=== PATIENT | female | born 1945 | race Caucasian/White ===

== ENCOUNTER 2018-05-19 02:00 | Outpatient (CLI) | payer MEDICARE, MEDICAID, SELFPAY ==
[2018-05-19 12:28] LABS: HCT 40.5 % (36.0-46.0); HGB 13.5 g/dL (12.0-15.5); Mean Corp. HGB Concentration 33.3 g/dL (32.0-36.0); Mean Corpuscular Hemoglobin 33.1 pg (27.0-33.0); Mean Corpuscular Volume 99.3 fL (80-95); Mean Platelet Volume 11.5 fL (8.0-11.0); Platelet Count 207 x1000/uL (130-400); RBC 4.08 m/cumm (4.00-5.20); RBC Distribution Width 13.3 % (11.7-14.6); White Blood Cell Count 8.09 k/cumm (4.4-10.8)
[2018-05-19 13:12] LABS: ALT 24 U/L (12-78); AST 18 U/L (15-37); Albumin 3.6 g/dL (3.4-5.0); Alkaline Phosphatase 182 U/L (46-116); Anion Gap 10.7 mmol/L (3-11); BUN 23 mg/dL (7-18); Bilirubin, Total 0.2 mg/dL (0.2-1.0); CO2 19.3 mmol/L (21.0-32.0); CREATININE 1.59 mg/dL (0.55-1.02); Calcium 8.8 mg/dL (8.5-10.1); Chloride 109 mmol/L (98-107); Estimated GFR 31.91 (mL/min/1.73m2); Glucose 91 mg/dL (70-100); Magnesium 1.9 mg/dL (1.8-2.4); PHOSPHORUS 4.6 mg/dL (2.6-4.7); Potassium 5.1 mmol/L (3.5-5.1); Sodium 139 mmol/L (136-145); Total Protein 7.3 g/dL (6.4-8.2)
[2018-05-20 09:32] LABS: Parathyroid Hormone,Intact 99 pg/ml (19-88)
== END 2018-05-19 02:20 ==
PROVIDERS: PCP Family Medicine; Visit Provider Family Medicine
DX: N18.4 Chronic kidney disease, stage 4 (severe) (principal); N25.81 Secondary hyperparathyroidism of renal origin
CPT/HCPCS: 36415; 80053; 85027; 83735; 83970; 84100

== ENCOUNTER 2018-07-19 11:24 | Outpatient (REF) | payer MEDICARE, MEDICAID, SELFPAY ==
[2018-07-19 19:06] LABS: COMMENT (LAB VIEW ONLY) 13.06 mg/dL; Microalb ug/mg Crea 198.3 ug/mg Cr
== END 2018-07-19 11:44 ==
LOC: NCHCN 11:24
PROVIDERS: PCP Family Medicine; Visit Provider Family Medicine
DX: E11.9 Type 2 diabetes mellitus without complications (principal)
CPT/HCPCS: 82043; 82570

== ENCOUNTER 2018-07-23 00:45 | Outpatient (CLI) | payer MEDICARE, MEDICAID, SELFPAY ==
--- NOTE | 2018-07-23 13:56 | DI.CT_ITS ---
SYMPTOM/DIAGNOSIS: COUGH, LUNG NODULE, R91.8, CHRONIC KIDNEY DISEASE, FORMER SMOKER, N18.[address]: A noncontrast examination was performed. Comparison is made with exams dating back to 2012. The thoracic aorta is of normal caliber. Heart size is within normal limits. Coronary artery calcifications are present. Stable mediastinal lymph nodes are present. No pleural effusion or pneumothorax is identified. The spiculated soft tissue density in the anterior aspect of the right upper lobe has shown interval increase in size compared to 02/27/17. The area measures 1.7 by 2.1 cm. by 1.5 cm. The nodular density seen in the posterior right lower lobe is less prominent compared to the prior examination. No new pulmonary nodules are identified. Emphysematous changes are seen in the lungs. Dependent atelectatic changes are seen in the bases. No focal consolidating infiltrates are seen. Degenerative changes are seen in the spine. IMPRESSION: 1. Interval increase in size of spiculated soft tissue mass in the right upper lobe. Neoplasm should be considered. PET scan may be considered for further evaluation. 2. Emphysematous changes within the lungs. 3. Right lower lobe pulmonary nodule, less prominent when compared with the prior examination.
== END 2018-07-23 01:05 ==
PROVIDERS: PCP Family Medicine; Visit Provider Family Medicine
DX: R05 Cough (principal); R91.8 Other nonspecific abnormal finding of lung field; N18.9 Chronic kidney disease, unspecified; R59.0 Localized enlarged lymph nodes; J43.9 Emphysema, unspecified
CPT/HCPCS: 71250

== ENCOUNTER 2018-10-13 07:17 | Emergency (ER) | payer MEDICARE, MEDICAID, SELFPAY ==
[2018-10-13 07:22] VITALS: BP 125/57; PULSE 92; RESP 20; TEMP 36.5; O2SAT 98
--- NOTE | 2018-10-13 07:28 | W.ED.GENAD ---
Discharge Plan Disposition Patient Disposition: HOME Condition: Good Discharge Details Chief Complaint: SOB Clinical Impression: Cough Reason For Visit: KINA Primary Care Provider: Ean Dhillon ED Provider: Fantasma Ayon Home Meds and New Rx's Prescriptions: Continued simvastatin 10 MG tablet 10 mg PO DAILY Qty: 1 RF: 0 quinapril 5 MG tablet 5 mg PO DAILY Qty: 1 RF: 0 fluphenazine decanoate 125 MG/5 ML solution 0.8 ml IM DIRECTED RF: 0 aspirin 81 MG tablet,chewable 81 mg PO DAILY RF: 0 cholecalciferol (vitamin D3) 1,000 UNITS tablet 2,000 units PO DAILY RF: 0 Lantus Solostar U-100 Insulin 300 UNITS/3 ML insulin pen 15 units Sub-Q HS RF: 0 quetiapine [Seroquel] 300 MG tablet 300 mg PO .QHS RF: 0 Discharge Instructions Instructions: How to Stop Smoking (ED) Additional Instructions: Continue to try to quit smoking as you are doing. Continue other medications. Follow-up with primary care next week if you continue to not feel well. Return to the emergency department if you develop high fever, increasing shortness of breath, chest pain, other concerns per Referrals: Ean Dhillon [Primary Care Provider] - Medical Decision Making Patient here with complaint of cough and inability to take a deep breath. She is not short of breath just feels like she cannot take a full breath. Her vital signs are normal. She is afebrile. Her pulse ox is normal. Her lungs are mostly clear with only a few scattered rhonchi at the bases. There is no wheezing. There is no diminished breath sounds. She has not had a cough here. It may be all viral in nature. She has not called or followed up with her primary care at all. I do not think she needs laboratory studies or chest x-ray today. We will have her follow-up with primary care next week if continued symptoms. Return to emergency department for worsening shortness of breath, chest pain, high fever, other concerns. HPI General Mode of arrival: EMS. Date/Time Provider Initiated Documentation: 10/13/18 07:28. Limitations to Documentation: no limitations. Information obtained by: patient. HPI Narrative: Patient brought in by EMS for evaluation of cough and shortness of breath. Patient ambulated in on her own. She reports that she has had a cough for about a week now. She has not seen her primary care physician. She cannot take a deep breath like she usually can. She denies having fever. She denies having chest pain. She has no headache, body aches. She continues to smoke. Related Data Home Medications Medication Instructions Recorded Confirmed quinapril 5 mg PO DAILY #1 04/15/14 10/13/18 simvastatin 10 mg PO DAILY #1 tab-cap 04/15/14 10/13/18 aspirin 81 mg PO DAILY 08/10/15 10/13/18 cholecalciferol (vitamin D3) 2,000 units PO DAILY 08/10/15 10/13/18 fluphenazine decanoate 0.8 ml IM DIRECTED 08/10/15 10/13/18 Lantus Solostar U-100 Insulin 15 units SUB-Q HS 05/04/16 10/13/18 quetiapine [Seroquel] 300 mg PO .QHS 05/05/16 10/13/18 Allergies Allergy/AdvReac Type Severity Reaction Status Date / Time Sulfa (Sulfonamide Allergy Unknown Not Unverified 12/20/16 20:59 Antibiotics) recalled Contrast Dye Allergy Unknown feeling of Uncoded 12/20/16 20:59 body burning General Stated Complaint: SOB MACARENA: 3 Review of Systems Constitutional Denies body ache(s), Denies chills, Denies fever(s), Denies headache(s), Denies malaise and Denies weakness ENT Denies headache(s), Denies hoarseness, Denies nasal congestion, Denies neck pain, Denies sinus pressure and Denies sore throat Cardiovascular Denies chest pain, Denies diaphoresis, Denies syncope, Denies lightheadedness, Denies palpitations and Denies dyspnea Respiratory Denies chest congestion, Reports cough, Denies pain on inspiration and Denies dyspnea Gastrointestinal Denies abdominal pain, Denies nausea and Denies vomiting Musculoskeletal Denies neck pain and Denies numbness Neurologic Denies syncope, Denies headache(s), Denies focal weakness, Denies numbness and Denies weakness Endocrine Denies palpitations [facility] Medical History Bipolar disease, chronic Diabetes mellitus Diverticulosis History of colon cancer Hyperlipidemia Lung nodule Proteinuria Renal insufficiency Schizophrenia Tobacco abuse Surgical History Cholecystectomy Colectomy (~2001) Colonoscopy - MAC EGD - MAC Hernia Repair, Incisional Social History Smoking/Tobacco Use Status: Current every day Exam Const General: cooperative, comfortable and no acute distress Orientation: alert and oriented x3 HENMT Head: normocephalic and atraumatic Ears: unable to visualize TM bilaterally (cerumen ) General nose exam: no nasal discharge Neck Neck: trachea midline and supple Resp Effort & Inspection: normal respiratory effort, no audible wheezes, no respiratory distress, no retractions and not tachypneic Auscultation: lung sounds not diminished, no rales, rhonchi (few scattered rhonchi at bases) and no wheezes Cardio Rate: regular rate Rhythm: regular rhythm Heart Sounds: S1 normal and S2 normal GI Palpation: soft and nontender Neuro General: alert, oriented x3, gait normal, no focal motor deficits and CN's II-XI intact bilaterally Course Vital Signs Temperature 97.7 F 10/13/18 07:22 Pulse 92 H 10/13/18 07:22 Respiratory Rate 20 10/13/18 07:22 Blood Pressure 125/57 L 10/13/18 07:22 Pulse Oximetry 98 10/13/18 07:22 Temperature 97.7 F 10/13/18 07:22 Temperature Source Temporal Artery Scan 10/13/18 07:22 Pulse 92 H 10/13/18 07:22 Respiratory Rate 20 10/13/18 07:22 Respiratory Effort Non-Labored 10/13/18 07:27 Blood Pressure 125/57 L 10/13/18 07:22 Blood Pressure Position Supine 10/13/18 07:22 Pulse Oximetry 98 10/13/18 07:22 Oxygen Delivery Method Room Air 10/13/18 07:22 Oxygen Flow Rate 0 10/13/18 07:22 Pain Level 0 10/13/18 07:22
--- NOTE | 2018-10-13 07:36 | ED.GENADUL_ITS ---
Discharge Plan Disposition Patient Disposition: HOME Condition: Good Discharge Details Chief Complaint: SOB Clinical Impression: Cough Reason For Visit: KINA Primary Care Provider: Ean Dhillon ED Provider: Fantasma Ayon Home Meds and New Rx's Prescriptions: Continued simvastatin 10 MG tablet 10 mg PO DAILY Qty: 1 RF: 0 quinapril 5 MG tablet 5 mg PO DAILY Qty: 1 RF: 0 fluphenazine decanoate 125 MG/5 ML solution 0.8 ml IM DIRECTED RF: 0 aspirin 81 MG tablet,chewable 81 mg PO DAILY RF: 0 cholecalciferol (vitamin D3) 1,000 UNITS tablet 2,000 units PO DAILY RF: 0 Lantus Solostar U-100 Insulin 300 UNITS/3 ML insulin pen 15 units Sub-Q HS RF: 0 quetiapine [Seroquel] 300 MG tablet 300 mg PO .QHS RF: 0 Discharge Instructions Instructions: How to Stop Smoking (ED) Additional Instructions: Continue to try to quit smoking as you are doing. Continue other medications. Follow-up with primary care next week if you continue to not feel well. Return to the emergency department if you develop high fever, increasing shortness of breath, chest pain, other concerns per Referrals: Ean Dhillon [Primary Care Provider] - Medical Decision Making Patient here with complaint of cough and inability to take a deep breath. She is not short of breath just feels like she cannot take a full breath. Her vital signs are normal. She is afebrile. Her pulse ox is normal. Her lungs are mostly clear with only a few scattered rhonchi at the bases. There is no wheezing. There is no diminished breath sounds. She has not had a cough here. It may be all viral in nature. She has not called or followed up with her primary care at all. I do not think she needs laboratory studies or chest x-ray today. We will have her follow-up with primary care next week if continued symptoms. Return to emergency department for worsening shortness of breath, chest pain, high fever, other concerns. HPI General Mode of arrival: EMS . Date/Time Provider Initiated Documentation: 10/13/18 07:28 . Limitations to Documentation: no limitations . Information obtained by: patient . HPI Narrative: Patient brought in by EMS for evaluation of cough and shortness of breath. Patient ambulated in on her own. She reports that she has had a cough for about a week now. She has not seen her primary care physician. She cannot take a deep breath like she usually can. She denies having fever. She denies having chest pain. She has no headache, body aches. She continues to smoke. Related Data Home Medications Medication Instructions Recorded Confirmed quinapril 5 mg PO DAILY #1 04/15/14 10/13/18 simvastatin 10 mg PO DAILY #1 tab-cap 04/15/14 10/13/18 aspirin 81 mg PO DAILY 08/10/15 10/13/18 cholecalciferol (vitamin D3) 2,000 units PO DAILY 08/10/15 10/13/18 fluphenazine decanoate 0.8 ml IM DIRECTED 08/10/15 10/13/18 Lantus Solostar U-100 Insulin 15 units SUB-Q HS 05/04/16 10/13/18 quetiapine [Seroquel] 300 mg PO .QHS 05/05/16 10/13/18 Allergies Allergy/AdvReac Type Severity Reaction Status Date / Time Sulfa (Sulfonamide Allergy Unknown Not Unverified 12/20/16 20:59 Antibiotics) recalled Contrast Dye Allergy Unknown feeling of Uncoded 12/20/16 20:59 body burning General Stated Complaint: SOB MACARENA: 3 Review of Systems Constitutional Denies body ache(s), Denies chills, Denies fever(s), Denies headache(s), Denies malaise and Denies weakness ENT Denies headache(s), Denies hoarseness, Denies nasal congestion, Denies neck pain, Denies sinus pressure and Denies sore throat Cardiovascular Denies chest pain, Denies diaphoresis, Denies syncope, Denies lightheadedness, Denies palpitations and Denies dyspnea Respiratory Denies chest congestion, Reports cough, Denies pain on inspiration and Denies dyspnea Gastrointestinal Denies abdominal pain, Denies nausea and Denies vomiting Musculoskeletal Denies neck pain and Denies numbness Neurologic Denies syncope, Denies headache(s), Denies focal weakness, Denies numbness and Denies weakness Endocrine Denies palpitations [facility] Medical History Bipolar disease, chronic Diabetes mellitus Diverticulosis History of colon cancer Hyperlipidemia Lung nodule Proteinuria Renal insufficiency Schizophrenia Tobacco abuse Surgical History Cholecystectomy Colectomy (~2001) Colonoscopy - MAC EGD - MAC Hernia Repair, Incisional Social History Smoking/Tobacco Use Status: Current every day Exam Const General: cooperative, comfortable and no acute distress Orientation: alert and oriented x3 HENMT Head: normocephalic and atraumatic Ears: unable to visualize TM bilaterally (cerumen ) General nose exam: no nasal discharge Neck Neck: trachea midline and supple Resp Effort & Inspection: normal respiratory effort, no audible wheezes, no respiratory distress, no retractions and not tachypneic Auscultation: lung sounds not diminished, no rales, rhonchi (few scattered rhonchi at bases) and no wheezes Cardio Rate: regular rate Rhythm: regular rhythm Heart Sounds: S1 normal and S2 normal GI Palpation: soft and nontender Neuro General: alert, oriented x3, gait normal, no focal motor deficits and CN's II-XI intact bilaterally Course Vital Signs Temperature 97.7 F 10/13/18 07:22 Pulse 92 H 10/13/18 07:22 Respiratory Rate 20 10/13/18 07:22 Blood Pressure 125/57 L 10/13/18 07:22 Pulse Oximetry 98 10/13/18 07:22 Temperature 97.7 F 10/13/18 07:22 Temperature Source Temporal Artery Scan 10/13/18 07:22 Pulse 92 H 10/13/18 07:22 Respiratory Rate 20 10/13/18 07:22 Respiratory Effort Non-Labored 10/13/18 07:27 Blood Pressure 125/57 L 10/13/18 07:22 Blood Pressure Position Supine 10/13/18 07:22 Pulse Oximetry 98 10/13/18 07:22 Oxygen Delivery Method Room Air 10/13/18 07:22 Oxygen Flow Rate 0 10/13/18 07:22 Pain Level 0 10/13/18 07:22
--- NOTE | 2018-10-13 07:43 | NUR.NOTE ---
Nursing Note: Bedside BGL test 207, patient states she does her own insulin shots
--- NOTE | 2018-10-13 07:59 | PDOC.ERCMPRO ---
Care Management Progress Note 10/13-Edilma COLLIER requested assistance with transportation home for Delmi. Delmi has [place] Medicaid and normally uses [facility] for transport. Called [facility] and spoke with Rosalba. Rosalba scheduled transport for 9:30 via a taxi. Edilma COLLIER aware of the above. Called in to speak with Delmi as she wanted to go home know. Explained to Delmi that the taxi's were busy and this was the best that [facility] can do. Offered Delmi Coffee and breakfast for which she is now eating. Patient will wait for transportation in ED waiting room.
--- NOTE | 2018-10-13 08:34 | CMPROGNOTE_ITS ---
Care Management Progress Note 10/13-Edilma COLLIER requested assistance with transportation home for Delmi. Delmi has [place] Medicaid and normally uses [facility] for transport. Called [facility] and spoke with Rosalba. Rosalba scheduled transport for 9:30 via a taxi. Edilma COLLIER aware of the above. Called in to speak with Delmi as she wanted to go home know. Explained to Nasra parker that the taxi's were busy and this was the best that [facility] can do. Offered Delmi Coffee and breakfast for which she is now eating. Patient will wait for transportation in ED waiting room.
== END 2018-10-13 07:58 | disposition home or self-care (01) ==
PROVIDERS: Emergency Provider Emergency Medicine; PCP Family Medicine
DX: R05 Cough (principal); F17.210 Nicotine dependence, cigarettes, uncomplicated
CPT/HCPCS: 99282

== ENCOUNTER 2018-10-21 15:51 | Outpatient (CLI) | payer MEDICARE, MEDICAID, SELFPAY ==
[2018-10-21 16:26] LABS: Abs Immature Grans 0.01 k/cumm (0.0-0.09); Absolute Basophil Count 0.03 k/cumm (0.0-0.2); Absolute Eosinophil Count 0.12 k/cumm (0.0-0.7); Absolute Monocyte Count 0.54 k/cumm (0.11-0.7); Absolute Neutrophil Count 5.32 k/cumm (1.2-6.7); Basophils % 0.4; Eosinophils % 1.5; HCT 37.5 % (36.0-46.0); HGB 12.3 g/dL (12.0-15.5); Immature Grans % 0.1; Lymphocytes % 24.9; Mean Corp. HGB Concentration 32.8 g/dL (32.0-36.0); Mean Corpuscular Hemoglobin 32.7 pg (27.0-33.0); Mean Corpuscular Volume 99.7 fL (80-95); Monocytes % 6.7; Neutrophils % 66.4; Platelet Count 238 x1000/uL (130-400); RBC 3.76 m/cumm (4.00-5.20); RBC Distribution Width 13.2 % (11.7-14.6); White Blood Cell Count 8.02 k/cumm (4.4-10.8)
[2018-10-21 17:19] LABS: ALT 36 U/L (12-78); AST 28 U/L (15-37); Albumin 3.1 g/dL (3.4-5.0); Alkaline Phosphatase 173 U/L (46-116); Anion Gap 7.9 mmol/L (3-11); BUN 39 mg/dL (7-18); Bilirubin, Total 0.1 mg/dL (0.2-1.0); CO2 24.1 mmol/L (21.0-32.0); CREATININE 2.14 mg/dL (0.55-1.02); Calcium 8.4 mg/dL (8.5-10.1); Chloride 104 mmol/L (98-107); Estimated GFR 22.59 (mL/min/1.73m2); Glucose 220 mg/dL (70-100); Potassium 5.8 mmol/L (3.5-5.1); Sodium 136 mmol/L (136-145); Total Protein 6.9 g/dL (6.4-8.2)
== END 2018-10-21 16:11 ==
PROVIDERS: PCP Family Medicine; Visit Provider Thoracic Surgery (Cardiothoracic Vascular Surgery)
DX: R91.1 Solitary pulmonary nodule (principal); R94.31 Abnormal electrocardiogram [ECG] [EKG]
CPT/HCPCS: 36415; 80053; 85025; 93005; 93010

== ENCOUNTER 2018-10-28 13:08 | Outpatient (CLI) | payer MEDICARE, MEDICAID, SELFPAY ==
[2018-10-28 14:16] LABS: Anion Gap 14.5 mmol/L (3-11); BUN 40 mg/dL (7-18); CO2 20.5 mmol/L (21.0-32.0); Calcium 8.8 mg/dL (8.5-10.1); Chloride 101 mmol/L (98-107); Estimated GFR 25.91 (mL/min/1.73m2); Glucose 212 mg/dL (70-100); Potassium 5.3 mmol/L (3.5-5.1); Sodium 136 mmol/L (136-145)
== END 2018-10-28 13:28 ==
PROVIDERS: PCP Family Medicine; Visit Provider Thoracic Surgery (Cardiothoracic Vascular Surgery)
DX: R91.1 Solitary pulmonary nodule (principal); N18.9 Chronic kidney disease, unspecified
CPT/HCPCS: 36415; 80048

== ENCOUNTER 2019-01-25 10:32 | Outpatient (CLI) | payer MEDICARE, MEDICAID, SELFPAY ==
[2019-04-27 15:49] LABS: ALT 23 U/L (12-78); AST 13 U/L (15-37); Albumin 3.2 g/dL (3.4-5.0); Alkaline Phosphatase 156 U/L (46-116); Anion Gap 11.7 mmol/L (3-11); BUN 28 mg/dL (7-18); Bilirubin, Total 0.2 mg/dL (0.2-1.0); CO2 22.3 mmol/L (21.0-32.0); CREATININE 1.83 mg/dL (0.55-1.02); Calcium 8.5 mg/dL (8.5-10.1); Calculated LDL 49 mg/dL; Chloride 107 mmol/L (98-107); Cholesterol 122 mg/dL (50-200); Estimated GFR 27.06 (mL/min/1.73m2); Glucose 229 mg/dL (70-100); HDL Cholesterol 48 mg/dL (40-60); Magnesium 1.8 mg/dL (1.8-2.4); Potassium 4.9 mmol/L (3.5-5.1); Sodium 141 mmol/L (136-145); Total Protein 6.6 g/dL (6.4-8.2); Triglyceride 129 mg/dL (30-150)
[2019-04-27 15:58] LABS: PHOSPHORUS 4.9 mg/dL (2.6-4.7)
[2019-04-28 09:53] LABS: Hepatitis C Ab w Rflx HCV PCR Negative (NEGAT)
[2019-04-28 11:53] LABS: Parathyroid Hormone,Intact 195 pg/ml (19-88)
== END 2019-01-25 10:52 ==
PROVIDERS: PCP Family Medicine; Visit Provider Family Medicine
DX: N18.4 Chronic kidney disease, stage 4 (severe) (principal); Z11.59 Encounter for screening for other viral diseases; F25.9 Schizoaffective disorder, unspecified
CPT/HCPCS: 36415; 80053; 80061; 83721; 86803; 83735; 83970; 84100

== ENCOUNTER 2019-04-08 16:49 | Outpatient (REF) | payer MEDICARE, MEDICAID, SELFPAY ==
[2019-04-08 20:44] LABS: ALT 23 U/L (12-78); AST 16 U/L (15-37); Albumin 3.2 g/dL (3.4-5.0); Alkaline Phosphatase 145 U/L (46-116); Anion Gap 8.2 mmol/L (3-11); BUN 39 mg/dL (7-18); Bilirubin, Total 0.2 mg/dL (0.2-1.0); CO2 24.8 mmol/L (21.0-32.0); Calcium 8.5 mg/dL (8.5-10.1); Calculated LDL 69 mg/dL; Chloride 108 mmol/L (98-107); Cholesterol 137 mg/dL (50-200); Estimated GFR 27.58 (mL/min/1.73m2); Glucose 151 mg/dL (70-100); HDL Cholesterol 42 mg/dL (40-60); Sodium 141 mmol/L (136-145); Total Protein 6.5 g/dL (6.4-8.2); Triglyceride 130 mg/dL (30-150)
[2019-04-08 20:49] LABS: Potassium 5.8 mmol/L (3.5-5.1)
[2019-04-08 20:59] LABS: PHOSPHORUS 4.5 mg/dL (2.6-4.7)
[2019-04-11 10:55] LABS: Hepatitis C Ab w Rflx HCV PCR Negative (NEGAT)
== END 2019-04-08 17:09 ==
LOC: NCHCN 16:49
PROVIDERS: PCP Family Medicine; Visit Provider Family Medicine
DX: N18.4 Chronic kidney disease, stage 4 (severe) (principal); Z11.59 Encounter for screening for other viral diseases; F25.9 Schizoaffective disorder, unspecified; Z13.6 Encounter for screening for cardiovascular disorders
CPT/HCPCS: 80053; 80061; 83721; 86803; 83735; 84100

== ENCOUNTER 2019-05-05 00:56 | Outpatient (CLI) | payer MEDICARE, MEDICAID, SELFPAY ==
--- NOTE | 2019-05-05 14:27 | DI.COMBO_ITS ---
SYMPTOMS/DIAGNOSIS: F/U ABNORMAL MAMMO, LEFT BREAST, R92.8 MAMMOGRAM AND LEFT BREAST ULTRASOUND: Mammograms were interpreted according to the usual protocol including computer analysis with CAD system, tomosynthesis and C view imaging. Comparison is with prior examinations. No suspicious masses or microcalcifications are seen. The skin and axillae are unremarkable. Left breast ultrasound was performed. The hypoechoic masses seen at the 9 o'clock position of the left breast appear stable, the largest measures 0.7 x 0.4 x 0.7 cm, the smaller measures 0.6 x 0.4 x 0.7 cm. The nodules are 5 cm from the nipple at the 9 o'clock position of the left breast. IMPRESSION: No evidence for malignancy. Yearly mammography is recommended. Category 2, breast density C. The findings were discussed with the patient on the date of the examination. SA ASSESSMENT OF FINDINGS: Negative with benign findings. Category 2. Patient will receive a letter notifying them of these results. Bi-RADS category C. The breasts are heterogeneously dense, which may obscure small masses.
== END 2019-05-05 01:16 ==
PROVIDERS: PCP Family Medicine; Visit Provider Family Medicine
DX: Z12.31 Encounter for screening mammogram for malignant neoplasm of breast (principal); R92.8 Other abnormal and inconclusive findings on diagnostic imaging of breast; N63.22 Unspecified lump in the left breast, upper inner quadrant
CPT/HCPCS: 76642; 77062; 77066; G0279

== ENCOUNTER 2019-05-05 01:46 | Outpatient (CLI) | payer MEDICARE, MEDICAID, SELFPAY ==
--- NOTE | 2019-05-05 09:00 | DI.CT_ITS ---
SYMPTOM/DIAGNOSIS: LUNG CANCER C34.11 CT CHEST: CT scan of the chest was performed without intravenous contrast material. Comparison is 07/23/18 There are multiple hypodense nodules seen within the thyroid gland including two calcified nodules seen in the left lobe. Several of these nodules appear to have been present on the prior examination. If there is continued concern a non-emergent thyroid ultrasound may be obtained. Next, there is mild atherosclerosis of the thoracic aorta. No aneurysmal dilatation is seen. Heart size is within normal limits. No significant pericardial effusion is present. No pleural effusion or pneumothorax is identified There are stable lymph nodes seen in the mediastinum. Emphysematous changes are present in the lungs. The right upper lobe pulmonary mass is again noted and measures 2.3 transverse x 1.4 AP x 1.4 cranial caudad. There does appear to be adjacent atelectatic change in the right upper lobe medially. There is a calcified granuloma seen in the left lower lobe. No new pulmonary nodules are present. The tracheobronchial tree is unremarkable. Dependent atelectatic changes are present in the lungs. There is mild ground glass opacities particularly in the lung bases. These are nonspecific. Atelectasis, interstitial pneumonitis should be considered among other etiologies. Tracheobronchial tree is unremarkable. Degenerative changes are seen in the spine. Upper abdominal images again show multiple cysts within the kidneys. The patient is status post cholecystectomy. IMPRESSION: Stable appearance in size of the right upper lobe pulmonary nodule. Adjacent infiltrate is seen which may represent atelectasis in the medial aspect of the right upper lobe. 2. No new pulmonary nodules are seen. 3. Stable mediastinal lymph nodes. 4. Nonspecific ground glass opacities seen within the lungs.
== END 2019-05-05 02:06 ==
PROVIDERS: PCP Family Medicine; Visit Provider Radiology Radiation Oncology
DX: C34.11 Malignant neoplasm of upper lobe, right bronchus or lung (principal); R91.8 Other nonspecific abnormal finding of lung field; R59.0 Localized enlarged lymph nodes; Z12.31 Encounter for screening mammogram for malignant neoplasm of breast; R92.8 Other abnormal and inconclusive findings on diagnostic imaging of breast; N63.22 Unspecified lump in the left breast, upper inner quadrant
CPT/HCPCS: 71250; 76642; 77062; 77066; G0279

== ENCOUNTER 2019-08-15 15:13 | Outpatient (REF) | payer MEDICARE, MEDICAID, SELFPAY ==
[2019-08-15 19:47] LABS: HCT 40.5 % (36.0-46.0); HGB 13.2 g/dL (12.0-15.5); Mean Corp. HGB Concentration 32.6 g/dL (32.0-36.0); Mean Corpuscular Hemoglobin 32.8 pg (27.0-33.0); Mean Corpuscular Volume 100.7 fL (80-95); Mean Platelet Volume 11.2 fL (8.0-11.0); Platelet Count 302 x1000/uL (130-400); RBC 4.02 m/cumm (4.00-5.20); RBC Distribution Width 12.6 % (11.7-14.6); White Blood Cell Count 9.01 k/cumm (4.4-10.8)
[2019-08-15 19:52] LABS: Albumin 3.4 g/dL (3.4-5.0); Anion Gap 9.5 mmol/L (3-11); BUN 36 mg/dL (7-18); CO2 27.5 mmol/L (21.0-32.0); CREATININE 1.91 mg/dL (0.55-1.02); Chloride 103 mmol/L (98-107); Estimated GFR 25.68 (mL/min/1.73m2); Glucose 173 mg/dL (74-106); Potassium 4.5 mmol/L (3.5-5.1); Sodium 140 mmol/L (136-145)
== END 2019-08-15 15:33 ==
LOC: NCHCN 15:13
PROVIDERS: PCP Family Medicine; Visit Provider Family Medicine
DX: N18.4 Chronic kidney disease, stage 4 (severe) (principal)
CPT/HCPCS: 80048; 85027; 82040; 84100

== ENCOUNTER 2019-08-29 00:50 | Outpatient (CLI) | payer MEDICARE, MEDICAID, SELFPAY ==
--- NOTE | 2019-08-29 13:04 | DI.CT_ITS ---
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 COMPARISON: CT CHEST WO from 05/05/2019 FINDINGS: There is no significant change in size of the right upper lobe mass versus slight decrease in size. A djacent bronchiectasis and upper lobe emphysematous changes are again noted. There are no new masses, infiltrates, pleural or pericardial effusions. There has been interval decrease in size of previousl y noted upper mediastinal lymph node from 11 millimeters to 8 millimeters. There are a few other smal ler nodes measuring around 5 millimeters in size. A few small thyroid nodules are unchanged. IMPRESSION: Question of slight interval decrease in size of right upper lobe mass. Decreased size of superior med iastinal lymph node. No new abnormalities are seen.
== END 2019-08-29 01:10 ==
PROVIDERS: PCP Family Medicine; Visit Provider Nurse Practitioner
DX: C34.11 Malignant neoplasm of upper lobe, right bronchus or lung (principal); R59.0 Localized enlarged lymph nodes; N18.9 Chronic kidney disease, unspecified; J47.9 Bronchiectasis, uncomplicated; E07.89 Other specified disorders of thyroid
CPT/HCPCS: 71250

== ENCOUNTER 2019-10-31 08:40 | Emergency (ER) | payer MEDICARE, MEDICAID, SELFPAY ==
[2019-10-31] VITALS (42 sets, daily range): BP systolic 102–156; BP diastolic 56–72; PULSE 81–113; RESP 13–30; TEMP 36.5–37.3; O2SAT 96–99
--- NOTE | 2019-10-31 08:45 | DI.RAD_ITS ---
EXAM: XR CHEST 2V PA LATERAL INDICATION: slurred speech. COMPARISON: PORTABLE CHEST ONE VIEW from 12/20/2016 TECHNIQUE: 2D digital imaging was performed. FINDINGS: The heart size and pulmonary vasculature are within normal limits. There is a new infiltrate in the right upper lobe anteriorly. The lungs are otherwise clear. No pleural effusion or pneumothorax is identified. The bones appear intact. IMPRESSION: Right upper lobe infiltrate. This may represent atelectasis, pneumonia or scarring. Please correlat e clinically.
--- NOTE | 2019-10-31 08:45 | DI.CT_ITS ---
EXAM: CT HEAD - STROKE PROTOCOL CLINICAL HISTORY: SLURRED SPEECH,? STROKE TECHNIQUE: The exam was performed without contrast. COMPARISON: No exams were available for comparison FINDINGS: The ventricles and sulci are consistent with the patient's age. There are areas of decreased attenua tion in the white matter most consistent with small vessel ischemic disease. No acute intracranial h emorrhage, midline shift or mass effect is identified. The basilar cisterns are patent. The ventric les are intact. The calvarium is intact. The visualized paranasal sinuses are clear. IMPRESSION: No acute intracranial process. The findings were discussed with the emergency department on the date of the examination.
--- NOTE | 2019-10-31 08:50 | ED.GENADUL_ITS ---
Discharge Plan Disposition Patient Disposition: HOME Condition: Good Discharge Details Chief Complaint: CVA/TIA Clinical Impression: Malaise Primary Care Provider: Ean Dhillon ED Provider: Therese Mahmood Home Meds and New Rx's Prescriptions: Continued simvastatin 10 MG tablet 10 mg PO DAILY Qty: 1 RF: 0 fluphenazine decanoate 125 MG/5 ML solution 0.8 ml IM DIRECTED RF: 0 aspirin 81 MG tablet,chewable 81 mg PO DAILY RF: 0 cholecalciferol (vitamin D3) 1,000 UNITS tablet 1,000 units PO DAILY RF: 0 Lantus Solostar U-100 Insulin 300 UNITS/3 ML insulin pen 15 units Sub-Q HS RF: 0 quetiapine [Seroquel] 300 MG tablet 300 mg PO .QHS RF: 0 Nicotrol 10 mg Cartridge 1 inh INHALATION 4-6XD PRNRF: 0 gabapentin 100 mg Capsule 100 mg PO TID PRNRF: 0 polyethylene glycol 3350 [Miralax] 17 gram/dose Powder 17 g PO DAILY RF: 0 Discharge Instructions Instructions: Weakness (ED) Additional Instructions: Your exam is reassuring today. No acute abnormalities are noted on your CT MRI laboratory evaluation. Continue to encourage water intake. Please follow-up with your primary care this week for reevaluation. If you develop chest pain, difficulty breathing, fever/chills or other new/worsening symptoms please seek care urgently once again. Referrals: Ean Dhillon [Primary Care Provider] - Discharge Data Discharge Date/Time-TO BE ENTERED AT DEPARTURE: 10/31/19 13:39 Medical Decision Making Patient is a 74-year-old female with history of malaise, ptosis, soft tissue neoplasm, active smoker, CKD, bipolar, diabetes hyperlipidemia, schizophrenia. She is brought in via EMS after she awoke this morning concerned that she may have had a stroke. I am unclear as to why exactly this patient thought she had a stroke. She is a fairly poor historian. EMS brings her in stating that her speech is slurred. However, they report that they have taken care of this patient multiple times historically that her speech is fairly baseline for her. States that at baseline, patient has slurred speech and shuffled gait but this is been consistent over the past several years. Patient reports she is feeling unwell when she woke this morning with no true focal complaints. Her BGL prior to arrival was 126. She denies any headache. No fevers. Has not been notably confused. Denies any neck pain. No trauma. Denies any chest pain shortness of breath. He has not noted any focal weakness but does have generalized weakness as reported by the patient. On exam, patient appears chronically ill. She is thin and appears slightly malnourished. She seems to be selectively hard of hearing. Is selectively falling asleep during exam. Intermittently participates with exam. She does not want to participate in exam, she is moving all of her extremities. No facial droop is noted. She does have slurred speech. Reported this is baseline for the patient. Her cognition is appropriate. Reflexes are intact bilaterally. My differential is patient's quite broad as I am not completely clear as to what her chief complaint is. The only persistent complaint seems to be that of fatigue. Again, the patient reports that she awoke with the symptoms. EKG was reviewed by Dr. Guevara. She advised that there are changes to the T wave versions which are new compared to previous she denies that these findings are not particular suggestive of ischemia. She advised repeat troponin as well as repeat EKG. Patient is otherwise normal sinus rhythm with a rate of 89. Recommended by the radiologist regarding the patient's CT and they advised it is negative. Labs were reviewed, no leukocytosis. Patient is not anemic, she appears dehydrated BUN of 31. This is baseline for the patient and she is receiving fluids. Creatinine is 1.8 which is also baseline. Patient. Alk phos is elevated 142 which is normal for the patient. No findings to suggest urinary tract infection. She is positive for tricyclics which would be expected given her medication list. Nursing staff has cared for this patient multiple times they feel that her speech is at baseline. Patient continues to feel weak weird. She is not able to define this further for me. I do not see any objective evidence of an acute stroke. She is moving all of her extremities. We did have her ambulate by department and patient has a very shuffled gait. However, this sounds to be the baseline for the patient per EMS and nursing staff. Difficult caring for this patient right now as I do not know her typical baseline is to feel further evaluation given her reported subjective concern for having a stroke as well as her feeling of fatigue and slurred speech. MRI is available obtained at this time. I was contacted by the radiologist who advised MRI is negative. I discussed these findings with the patient. She is now discussing with her son was admitted last night and she is wondering about him if she can see him. Now wondering if this was the patient's primary concern. This certainly could have increased her anxiety but she has at baseline. They do reside together. I did contact the medical surgical unit at her request but the son has already left AMA. I advised the patient is unable to see him at this time. However, I feel that discharge is appropriate that she will discuss this further with her son at home. She is angry regarding the pain see her son and is yelling at staff. She is very disagreeable. She seems to have much improved strength and appears less fatigued given her level of anger. Patient will be discharged at this time. She has local primary care and advised that she follow-up closely. All of her questions and concerns were addressed and she was in agreement with this plan. HPI General Mode of arrival: EMS . Date/Time Provider Initiated Documentation: 10/31/19 08:50 . Limitations to Documentation: no limitations . Information obtained by: patient, EMS and RN notes reviewed . History of Present Illness 74 year old F presents to the emergency department with the chief complaint of Patient reported feeling like she had a stroke upon awakening, described as mild, with intensity rated at 1 (Patient denies any pain). Patient started experiencing this hour(s) (1) and it has been constant. No relieving factors improve symptom(s), No exacerbating factors reported . Patient notes weakness (Generalized); denies confusion, chest pain, cough, diaphoresis, fever/chills, headaches, loss of appetite, malaise, nausea/vomiting, rash, seizure, shortness of breath and syncope. Patient did receive the following treatments prior to arrival, none Related Data Home Medications Medication Instructions Recorded Confirmed simvastatin 10 mg PO DAILY #1 tab-cap 04/15/14 10/31/19 aspirin 81 mg PO DAILY 08/10/15 10/31/19 cholecalciferol (vitamin D3) 1,000 units PO DAILY 08/10/15 10/31/19 fluphenazine decanoate 0.8 ml IM DIRECTED 08/10/15 10/31/19 Lantus Solostar U-100 Insulin 15 units SUB-Q HS 05/04/16 10/31/19 quetiapine [Seroquel] 300 mg PO .QHS 05/05/16 10/31/19 Nicotrol 1 inh INHALATION 4-6XD PRN 10/31/19 10/31/19 gabapentin 100 mg PO TID PRN 10/31/19 10/31/19 polyethylene glycol 3350 [Miralax] 17 g PO DAILY 10/31/19 10/31/19 Allergies Allergy/AdvReac Type Severity Reaction Status Date / Time Sulfa (Sulfonamide Allergy Unknown Not Unverified 10/31/19 08:50 Antibiotics) recalled Contrast Dye Allergy Unknown feeling of Uncoded 10/31/19 08:50 body burning General Stated Complaint: CVA/TIA MACARENA: 2 Review of Systems Narrative: Patient is a poor historian, very vague. Will answer yes/no Constitutional Constitutional: Reports as per HPI, Denies chills, Reports fatigue, Denies fever(s), Denies frequent falls, Denies headache(s), Denies snoring and Reports weakness (generalized) Eyes Eyes: Reports as per HPI, Denies blurry vision, Denies change in vision and Reports photophobia ENT Ears, Nose, Mouth, and Throat: Denies vertigo, Denies headache(s) and Denies neck pain Cardiovascular Cardiovascular: Reports as per HPI, Denies chest pain, Denies lightheadedness, Denies radiating jaw, neck or arm pain, Denies dyspnea and Denies dyspnea on exertion Respiratory Respiratory: Reports as per HPI, Denies chest congestion, Denies cough, Denies dyspnea, Denies dyspnea on exertion, Denies snoring, Denies stridor and Denies wheezing Gastrointestinal Gastrointestinal: Reports as per HPI, Denies abdominal pain, Denies change in bowel habits, Denies nausea and Denies vomiting Musculoskeletal Musculoskeletal: Reports as per HPI, Denies back pain, Denies myalgias, Denies muscle cramps, Denies neck pain and Denies numbness Integumentary/Breasts Skin/Breast: Reports as per HPI and Denies rash Neurologic Neurologic: Reports as per HPI, Denies abnormal movements, Reports abnormal speech (has chronic slurred speech), Denies behavioral changes, Denies confusion, Denies vertigo, Denies frequent falls, Denies headache(s), Denies focal weakness, Denies numbness, Denies sensory deficit and Reports weakness (generalized) Psychiatric Psychiatric: Denies behavioral changes and Denies confusion Endocrine Endocrine: Reports fatigue Allergic/Immunologic Allergic/Immunologic: Denies wheezing [facility] Medical History Bipolar disease, chronic Diabetes mellitus Diverticulosis History of colon cancer Hyperlipidemia Lung nodule Proteinuria Renal insufficiency Schizophrenia Tobacco abuse Social History Smoking/Tobacco Use Status: Current every day Tobacco Type: cigarettes Alcohol Intake: former Drug use: Never Do you feel safe in your relationship?: Yes Exam Const General: cooperative, healthy appearing, uncomfortable, no acute distress, well developed and well groomed Nutritional Appearance: average body habitus and well nourished Orientation: alert, awake and oriented x3 HENMT Head: normal to inspection, no palpable skull fracture, normocephalic and atraumatic Ears: hearing grossly normal bilaterally, external ears normal and TM's normal bilaterally General nose exam: external nose normal Mouth: oral mucosae normal and moist mucous membranes Throat: posterior oropharynx normal Eyes General: appearance normal, both eyes and all related structures Alignment and Position: alignment normal Periorbital: periorbital findings normal Eyelids: eyelids normal Sclera: sclerae normal Cornea: corneas normal Pupils: PERRL EOM: EOM intact bilaterally Neck Neck: normal visual inspection, full ROM, no lymphadenopathy and no meningeal signs Resp Effort & Inspection: normal respiratory effort, able to speak in complete sentences and no respiratory distress Auscultation: clear to auscultation bilaterally, no rales, no rhonchi and no wheezes Cardio Rate: regular rate Rhythm: regular rhythm Heart Sounds: S1 normal and S2 normal GI Inspection: normal to inspection and non-distended Palpation: soft, no hepatosplenomegaly, not firm, no guarding, not rigid and nontender Percussion: normal to percussion Auscultation: normal bowel sounds Back/Spine/Pelvis Cervical Spine: normal cervical lordosis and cervical ROM normal Skin General skin exam: no rashes or lesions noted Neuro General: alert, awake and oriented x3 Cranial Nerves: CN's II-XI intact bilaterally Cognition: normal cognition Speech: speech normal Gait: normal gait Motor: muscle tone normal throughout, strength 5/5 throughout, no pronator drift, no movement abnormalities noted and no fasciculations Sensory Exam: no sensory deficits noted Coordination: [id number] test normal and [id number] test normal Extrem General: normal to inspection, normal capillary refill, no pedal edema and no calf tenderness Psych Appearance: grossly normal and well kempt Mental Status: mental status grossly normal Speech and Movement: speech and movement normal Course Vital Signs Vital signs: Vital Signs Temperature 37.3 C 10/31/19 08:43 Pulse 97 H 10/31/19 08:43 Respiratory Rate 20 10/31/19 08:43 Blood Pressure 107/64 10/31/19 08:43 Pulse Oximetry 96 10/31/19 08:43 Temperature 37.3 C 10/31/19 08:43 Temperature Source Oral 10/31/19 08:43 Pulse 97 H 10/31/19 08:43 Respiratory Rate 20 10/31/19 08:43 Blood Pressure 107/64 10/31/19 08:43 Blood Pressure Position Sitting 10/31/19 08:43 Pulse Oximetry 96 10/31/19 08:43 Oxygen Delivery Method Room Air 10/31/19 08:43 Oxygen Flow Rate 0 10/31/19 08:43 Pain Level 0 10/31/19 08:43
[2019-10-31 09:06] LABS: Abs Immature Grans 0.01 k/cumm (0.0-0.09); Absolute Basophil Count 0.02 k/cumm (0.0-0.2); Absolute Eosinophil Count 0.15 k/cumm (0.0-0.7); Absolute Lymphocyte Count 1.14 k/cumm (1.2-3.4); Absolute Monocyte Count 0.68 k/cumm (0.11-0.7); Absolute Neutrophil Count 4.22 k/cumm (1.2-6.7); Basophils % 0.3; Eosinophils % 2.4; HCT 38.7 % (36.0-46.0); HGB 12.8 g/dL (12.0-15.5); Immature Grans % 0.2 %; Lymphocytes % 18.3; Mean Corp. HGB Concentration 33.1 g/dL (32.0-36.0); Mean Corpuscular Volume 96.8 fL (80-95); Mean Platelet Volume 10.4 fL (8.0-11.0); Monocytes % 10.9; Neutrophils % 67.9; Platelet Count 237 x1000/uL (130-400); RBC Distribution Width 13.2 % (11.7-14.6); White Blood Cell Count 6.22 k/cumm (4.4-10.8)
[2019-10-31 09:47] LABS: Bilirubin Negative (Negative); Blood Negative (Negative); Clarity Clear (Clear); Glucose Negative (Negative); Ketones Negative (Negative); Leukocyte Esterase Negative (Negative); Nitrite Negative (Negative); Specific Gravity <= 1.005 (1.005-1.025); Urobilinogen 0.2 EU/dL (Up TO 0.2)
[2019-10-31 09:50] LABS: ALT 17 U/L (14-59); AST 16 U/L (15-37); Alkaline Phosphatase 142 U/L (46-116); BUN 31 mg/dL (7-18); Bilirubin, Total 0.3 mg/dL (0.2-1.0); Chloride 110 mmol/L (98-107); Glucose 116 mg/dL (74-106); Magnesium 2.1 mg/dL (1.8-2.4); Potassium 4.5 mmol/L (3.5-5.1); Sodium 144 mmol/L (136-145); TSH (W/Ref FT4) 1.24 uIU/mL (0.36-3.74); Total Protein 7.3 g/dL (6.4-8.2)
[2019-10-31 09:55] LABS: Troponin I < 0.05 ng/Ml (<0.06)
[2019-10-31 09:58] LABS: *AMPHETAMINES SCREEN URINE Negative (Negative); *BARBITURATES SCREEN URINE Negative (Negative); *BENZODIAZEPINES SCREEN URINE Negative (Negative); Cannabinoids THC Negative (Negative); Cocaine Screen,Urine Negative (Negative); METHADONE URINE SCREEN Negative (Negative); OPIATES URINE SCREEN Negative (Negative)
[2019-10-31 09:59] LABS: Bacteria Negative HPF (Negative); C & S Indicated? No; Casts Negative LPF (Negative); Crystals Negative HPF (Negative); Epithelial Cells Rare HPF (Negative); Mucus Negative (Negative); RBC Negative HPF (0-2); WBC 0-2 HPF (0-5)
[2019-10-31 10:00] LABS: Tricyclic Antidepressants POSITIVE (Negative)
[2019-10-31 10:30] LABS: ETHANOL BLOOD < 3.0 mg/dL (<3)
--- NOTE | 2019-10-31 11:15 | DI.MRI_ITS ---
EXAM: MR BRAIN WO CLINICAL HISTORY: slurred speech, fatigue. TECHNIQUE: Multiplanar multisequence MRI was performed. COMPARISON: No exams were available for comparison FINDINGS: There is cerebral atrophy consistent with the patient's age. Diffusion-weighted images have a normal appearance. No intracranial hemorrhage is present. Ventricles are intact. The basilar cisterns ar e patent. There is a normal flow void in the [id number]. The visualized paranasal sinuses are unremarkable. Note is made of a partially empty sella. IMPRESSION: No evidence of an acute infarct. Findings were discussed with the emergency department on the date of the examination.
--- NOTE | 2019-10-31 12:08 | NUR.NOTE ---
Nursing Note: 1120--walked around dept and to BR with assistance with unsteady tip-toe gait
[2019-10-31 12:22] LABS: Troponin I < 0.05 ng/Ml (<0.06)
== END 2019-10-31 13:39 | disposition home or self-care (01) ==
PROVIDERS: Emergency Provider Physician Assistant; PCP Family Medicine
DX: R53.81 Other malaise (principal); E11.9 Type 2 diabetes mellitus without complications; Z79.4 Long term (current) use of insulin; N18.9 Chronic kidney disease, unspecified
CPT/HCPCS: 36416; 80053; 80307; 82962; 93005; 99284; 70450; 70551; 71046; 80320; 81003; 81015; 83735; 84443; 84484; 85025; 93010

== ENCOUNTER 2019-11-22 17:46 | Outpatient (REF) | payer MEDICARE, MEDICAID, SELFPAY ==
[2019-11-22 21:04] LABS: Abs Immature Grans 0.02 k/cumm (0.0-0.09); Absolute Basophil Count 0.01 k/cumm (0.0-0.2); Absolute Eosinophil Count 0.04 k/cumm (0.0-0.7); Absolute Lymphocyte Count 1.17 k/cumm (1.2-3.4); Absolute Neutrophil Count 7.68 k/cumm (1.2-6.7); Basophils % 0.1; Eosinophils % 0.4; HCT 40.3 % (36.0-46.0); HGB 13.3 g/dL (12.0-15.5); Immature Grans % 0.2 %; Lymphocytes % 12.2; Mean Corpuscular Hemoglobin 31.8 pg (27.0-33.0); Mean Corpuscular Volume 96.4 fL (80-95); Mean Platelet Volume 11.6 fL (8.0-11.0); Monocytes % 7.3; Neutrophils % 79.8; Platelet Count 280 x1000/uL (130-400); RBC 4.18 m/cumm (4.00-5.20); RBC Distribution Width 13.4 % (11.7-14.6); White Blood Cell Count 9.62 k/cumm (4.4-10.8)
[2019-11-22 23:11] LABS: Anion Gap 12.5 mmol/L (3-11); BUN 36 mg/dL (7-18); CO2 25.5 mmol/L (21.0-32.0); CREATININE 1.83 mg/dL (0.55-1.02); Calcium 8.8 mg/dL (8.5-10.1); Chloride 101 mmol/L (98-107); Estimated GFR 26.98 (mL/min/1.73m2); Glucose 146 mg/dL (74-106); Potassium 4.8 mmol/L (3.5-5.1); Sodium 139 mmol/L (136-145)
== END 2019-11-22 18:06 ==
LOC: NCHCN 17:46
PROVIDERS: PCP Family Medicine; Visit Provider Family Medicine
DX: N18.4 Chronic kidney disease, stage 4 (severe) (principal); R53.81 Other malaise
CPT/HCPCS: 80048; 85025

== ENCOUNTER 2019-11-23 11:37 | Emergency (ER) | payer MEDICARE, MEDICAID, SELFPAY ==
[2019-11-23] VITALS (11 sets, daily range): BP systolic 119–123; BP diastolic 70–72; PULSE 86–99; RESP 16–33; TEMP 36.5; O2SAT 97–99
--- NOTE | 2019-11-23 12:02 | ED.GENADUL_ITS ---
Discharge Plan Disposition Patient Disposition: HOME Condition: Improving Discharge Details Chief Complaint: Diabetes Clinical Impression: Hypoglycemia Primary Care Provider: Ean Dhillon ED Provider: Jacobo Dugan Home Meds and New Rx's Prescriptions: Continued simvastatin 10 MG tablet 10 mg PO DAILY Qty: 1 RF: 0 aspirin 81 MG tablet,chewable 81 mg PO DAILY RF: 0 cholecalciferol (vitamin D3) 1,000 UNITS tablet 1,000 units PO DAILY RF: 0 Lantus Solostar U-100 Insulin 300 UNITS/3 ML insulin pen 14 units Sub-Q HS RF: 0 quetiapine [Seroquel] 300 MG tablet 300 mg PO .QHS RF: 0 Nicotrol 10 mg Cartridge 1 inh INHALATION 4-6XD PRNRF: 0 gabapentin 100 mg Capsule 100 mg PO TID PRNRF: 0 polyethylene glycol 3350 [Miralax] 17 gram/dose Powder 17 g PO DAILY RF: 0 Vraylar 1.5 mg Capsule 1.5 mg PO DAILY RF: 0 Discharge Instructions Additional Instructions: Resume your daily glucose monitoring and insulin as previously prescribed. Return to the ER for any acute concerns. Follow-up with Dr. Ean Dhillon for recheck in the next 1 to 2 weeks time. Call for an appointment. Medical Decision Making 74-year-old female presents from home with mental status changes that were associated with a blood glucose of 31. This improved with administration of glucose en route by EMS services. She arrives with normal vital signs, conversant, without complaint. Screening laboratories obtained, patient given a meal tray which she ate, subsequently had a large bowel movement. Labs are reassuring, glucose responded and is 200. Patient improved. She will continue her daily glucose monitoring and use of insulin. She is stable and appropriate to discharge to home. She was seen by our neonatal critical care nurse to ensure good home care prior to discharge. HPI General Mode of arrival: ambulatory . Date/Time Provider Initiated Documentation: 11/23/19 11:57 . Limitations to Documentation: no limitations . Information obtained by: patient and EMS . History of Present Illness 74 year old F presents to the emergency department with the chief complaint of Confused and low glucose at home, improved with administration of glucose, described as moderate, Patient reports no radiation. Patient started experiencing this minute(s) and it has been now resolved. No relieving factors improve symptom(s), No exacerbating factors reported . Patient notes denies fever/chills, headaches, loss of appetite and nausea/vomiting. Patient did receive the following treatments prior to arrival, none Related Data Home Medications Medication Instructions Recorded Confirmed simvastatin 10 mg PO DAILY #1 tab-cap 04/15/14 11/23/19 aspirin 81 mg PO DAILY 08/10/15 11/23/19 cholecalciferol (vitamin D3) 1,000 units PO DAILY 08/10/15 11/23/19 Lantus Solostar U-100 Insulin 14 units SUB-Q HS 05/04/16 11/23/19 quetiapine [Seroquel] 300 mg PO .QHS 05/05/16 11/23/19 Nicotrol 1 inh INHALATION 4-6XD PRN 10/31/19 11/23/19 gabapentin 100 mg PO TID PRN 10/31/19 11/23/19 polyethylene glycol 3350 [Miralax] 17 g PO DAILY 10/31/19 11/23/19 Vraylar 1.5 mg PO DAILY 11/23/19 11/23/19 Allergies Allergy/AdvReac Type Severity Reaction Status Date / Time Sulfa (Sulfonamide Allergy Unknown Not Unverified 10/31/19 08:50 Antibiotics) recalled Contrast Dye Allergy Unknown feeling of Uncoded 10/31/19 08:50 body burning General Stated Complaint: Diabetes MACARENA: 2 Review of Systems Narrative: 6 systems reviewed and otherwise negative. Denies recent illness. States she is bad monitoring my sugar. PENDING SALE TO [facility] Medical History Bipolar disease, chronic Diabetes mellitus Diverticulosis History of colon cancer Hyperlipidemia Lung nodule Proteinuria Renal insufficiency Schizophrenia Tobacco abuse Social History Smoking/Tobacco Use Status: Current every day Tobacco Type: cigarettes Alcohol Intake: former Drug use: Never Do you feel safe in your relationship?: Yes Exam Narrative Exam Narrative: GEN: awake, alert, oriented 3. Pleasant, well groomed, interactive. HEAD: Normocephalic, atraumatic ENT: Mucous membranes moist, oropharynx unremarkable, External ear exam unremarkable EYES: PERRL, EOMI NECK: Full ROM, no RUBY, no menigismus CHEST/RESP: Nontender, clear to auscultation bilateral, no wheeze/rhonchi/rales CARDIOVASCULAR: RRR, no murmur, rub asha. 2+ Rad pulse bilateral ABDOMEN: Soft, nontender, no mass. +Bowel sounds EXT: Full ROM, no edema, no rash Neuro: Grossly normal neurologic exam, conversant, interactive. Psych: Speech fluent, thoughts congruent, affect normal Course Vital Signs Vital signs: Vital Signs Temperature 36.5 C 11/23/19 11:40 Pulse 86 11/23/19 11:40 Respiratory Rate 18 11/23/19 11:40 Blood Pressure 120/72 11/23/19 11:40 Pulse Oximetry 98 11/23/19 11:40 Temperature 36.5 C 11/23/19 11:40 Temperature Source Temporal Artery Scan 11/23/19 11:40 Pulse 86 11/23/19 11:40 Respiratory Rate 18 11/23/19 11:40 Respiratory Effort Non-Labored 11/23/19 11:47 Blood Pressure 120/72 11/23/19 11:40 Blood Pressure Position Supine 11/23/19 11:40 Pulse Oximetry 98 11/23/19 11:40 Oxygen Delivery Method Room Air 11/23/19 11:40 Oxygen Flow Rate 0 11/23/19 11:40 Pain Level 0 11/23/19 11:40
[2019-11-23 12:36] LABS: Abs Immature Grans 0.01 k/cumm (0.0-0.09); Absolute Basophil Count 0.01 k/cumm (0.0-0.2); Absolute Eosinophil Count 0.03 k/cumm (0.0-0.7); Absolute Lymphocyte Count 0.74 k/cumm (1.2-3.4); Absolute Monocyte Count 0.52 k/cumm (0.11-0.7); Absolute Neutrophil Count 8.55 k/cumm (1.2-6.7); Basophils % 0.1; Eosinophils % 0.3; HCT 39.4 % (36.0-46.0); HGB 13.4 g/dL (12.0-15.5); Immature Grans % 0.1 %; Lymphocytes % 7.5; Mean Corpuscular Hemoglobin 32.8 pg (27.0-33.0); Mean Corpuscular Volume 96.3 fL (80-95); Mean Platelet Volume 10.7 fL (8.0-11.0); Monocytes % 5.3; Neutrophils % 86.7; Platelet Count 236 x1000/uL (130-400); RBC 4.09 m/cumm (4.00-5.20); RBC Distribution Width 13.3 % (11.7-14.6); White Blood Cell Count 9.86 k/cumm (4.4-10.8)
[2019-11-23 12:56] LABS: ALT 17 U/L (14-59); AST 30 U/L (15-37); Albumin 3.1 g/dL (3.4-5.0); Alkaline Phosphatase 172 U/L (46-116); Anion Gap 10.7 mmol/L (3-11); BUN 37 mg/dL (7-18); Bilirubin, Total 0.3 mg/dL (0.2-1.0); CO2 26.3 mmol/L (21.0-32.0); CREATININE 1.88 mg/dL (0.55-1.02); Calcium 8.3 mg/dL (8.5-10.1); Chloride 99 mmol/L (98-107); Estimated GFR 26.16 (mL/min/1.73m2); Glucose 211 mg/dL (74-106); Potassium 4.1 mmol/L (3.5-5.1); Sodium 136 mmol/L (136-145); Total Protein 7.6 g/dL (6.4-8.2)
--- NOTE | 2019-11-23 15:00 | CMPROGNOTE_ITS ---
- If Service Date Differs Date of service: 11/23/19 Time of Service: 15:00 Care Management Progress Note DANIELLE meets with Delmi at the request of ED provider. Delmi reports she is out of test strips and struggles to use her glucose meter, as it is a different meter than the one she had previously. A ride is coordinated via [facility] for Delmi to return home. DANIELLE additionally contacts [facility] to request additional test strips. She is also instructed to bring her glucose meter to the pharmacy when she goes to picker and sorter load and unload the test strips, so the pharmacist can teach her how to use the glucose meter.
== END 2019-11-23 14:00 | disposition home or self-care (01) ==
PROVIDERS: Emergency Provider Emergency Medicine; PCP Family Medicine
DX: E11.649 Type 2 diabetes mellitus with hypoglycemia without coma (principal); Z79.4 Long term (current) use of insulin; N18.9 Chronic kidney disease, unspecified
CPT/HCPCS: 36415; 36416; 80053; 82962; 99284; 85025

== ENCOUNTER 2019-11-24 15:31 | Emergency (ER) | payer MEDICARE, MEDICAID, SELFPAY ==
[2019-11-24 15:35] VITALS: BP 133/82; PULSE 102; RESP 16; TEMP 36.5; O2SAT 98
--- NOTE | 2019-11-24 15:45 | ED.GENADUL_ITS ---
Discharge Plan Disposition Patient Disposition: HOME Condition: Stable Discharge Details Chief Complaint: Diabetes Clinical Impression: Hypoglycemia Primary Care Provider: Ean Dhillon ED Provider: Marcelino Villa Home Meds and New Rx's Prescriptions: No Action simvastatin 10 MG tablet 10 mg PO DAILY Qty: 1 RF: 0 aspirin 81 MG tablet,chewable 81 mg PO DAILY RF: 0 cholecalciferol (vitamin D3) 1,000 UNITS tablet 1,000 units PO DAILY RF: 0 Lantus Solostar U-100 Insulin 300 UNITS/3 ML insulin pen 14 units Sub-Q HS RF: 0 quetiapine [Seroquel] 300 MG tablet 300 mg PO .QHS RF: 0 Nicotrol 10 mg Cartridge 1 inh INHALATION 4-6XD PRNRF: 0 gabapentin 100 mg Capsule 100 mg PO TID PRNRF: 0 polyethylene glycol 3350 [Miralax] 17 gram/dose Powder 17 g PO DAILY RF: 0 Vraylar 1.5 mg Capsule 1.5 mg PO DAILY RF: 0 Discharge Instructions Instructions: Diabetic Hypoglycemia (ED) Additional Instructions: At this time your laboratory values do not reveal any emergent process, glucose has trended upward nicely after eating to dinner trays. You have declined an x- ray of your knee. I did have care management get involved in your case and you have declined the any of their help at this time. You have also assured me that your glucometer at home works. It is imperative that you eat several small meals a day and take your medications as directed and monitored your glucose carefully otherwise your glucose will likely continue to be out of control. Please watch for new or worsening symptoms and return to the ER for any concerns. I would like you to reach out to your primary care provider tomorrow for prompt outpatient reevaluation Discharge Data Discharge Date/Time-TO BE ENTERED AT DEPARTURE: 11/24/19 18:10 Medical Decision Making <Shreya Aquino - Last Filed: 11/25/19 07:56> 74-year-old female presents via EMS after being brought in for altered mental status and a BGL of 32 on scene. Was given D10 and presents alert and oriented with a BGL of 116. She was seen here yesterday for same complaint, had case management evaluation regarding her glucometer and strips please see case management note. She states upon initial questioning that she laid on the ground all night last night was unable to get up. She denies falling she does have a contusion to her right lateral knee and a contusion to her left anterior kneecap. Some mild erythema noted to her coccyx. She presents disheveled and in a urine and stool soaked depends. She lives with her son who she reports wears earplugs at night. Initial labs ordered including CBC and CMP and a CK. Dietary tray ordered and patient is eating without difficulty at this time. Care to be signed out pending labs and XR to Allen DANIELS. <FRANCES Valles - Last Filed: 11/24/19 21:46> Patient signed out to me pending laboratory values and x-ray. Please see initial HPI for full presentation. Apparently patient was seen yesterday for hypoglycemia, was noted to have hypoglycemia again today. When I went to evaluate her she was eating a dinner tray and has no concerns or complaints. She reports that she is just hungry. She appears well, nontoxic. Awake, alert, oriented x3. Heart regular rate and rhythm, lungs clear to auscultation. Abdomen soft, nontender. X-ray came to take her for her knee film however she declines. Reports that she does has a bruise but no pain and does not believe an x-ray is necessary. She does have ecchymosis over the anterior aspect of her left knee and a small abrasion-ecchymosis to her right inferior lateral knee. We discussed her laboratory values, no emergent process. We discussed disposition options. Patient would like to go home. There was some concern that possibly her glucometer is not working properly however she refutes this and reports that it works just fine. She states that there are no limiting factors for her to go home. I did reach out to our care management team who evaluated the patient herself however patient declined all resources that were offered. Patient asked for a second dinner tray, she ate a second dinner tray without any difficulty. She was observed in the ER for over 2-1/2 hours, serial glucose levels trended upward, last glucose before discharge was 157. Patient requesting to go home, declines any help from care management team, ate 2 meals, and glucose is trending upward. She is currently asymptomatic. Discussed the importance of taking her medications as directed, eating multiple small meals daily. We discussed the importance of taking glucose readings several times a day to be sure that her glucose levels are appropriate. Patient has no additional questions or concerns and is comfortable discharge. Medical Records Medical records reviewed: Yes I reviewed the patient's medical records. Lab Data Lab results reviewed: Yes I reviewed the patient's lab results. Lab results narrative: Laboratory Tests Range/Units 11/24/19 11/24/19 11/24/19 15:50 15:50 15:50 WBC (4.4-10.8) k/cumm 8.89 RBC (4.00-5.20) m/cumm 4.33 Hgb (12.0-15.5) g/dL 13.9 Hct (36.0-46.0) % 41.8 MCV (80-95) fL 96.5 H MCH (27.0-33.0) pg 32.1 MCHC (32.0-36.0) g/dL 33.3 RDW (11.7-14.6) % 13.3 Plt Count (130-400) x1000/uL 279 MPV (8.0-11.0) fL 10.4 Immature Gran % % 0.1 Neutrophils % 82.2 Lymphocytes % 11.0 Monocytes % 6.2 Eosinophils % 0.4 Basophils % 0.1 Absolute Neutrophils (1.2-6.7) k/cumm 7.30 H Absolute Lymphocytes (1.2-3.4) k/cumm 0.98 L Absolute Monocytes (0.11-0.7) k/cumm 0.55 Absolute Eosinophils (0.0-0.7) k/cumm 0.04 Absolute Basophils (0.0-0.2) k/cumm 0.01 Sodium (136-145) mmol/L 139 Potassium (3.5-5.1) mmol/L 3.5 Chloride (98-107) mmol/L 102 Carbon Dioxide (21.0-32.0) mmol/L 29.2 Anion Gap (3-11) mmol/L 7.8 BUN (7-18) mg/dL 33 H Creatinine (0.55-1.02) mg/dL 1.84 H Estimated GFR/1.73 m2 (mL/min/1.73m2) 26.82 Glucose (74-106) mg/dL 120 H D Hemoglobin A1c (3.8-5.6) % Calcium (8.5-10.1) mg/dL 9.0 Total Bilirubin (0.2-1.0) mg/dL 0.2 AST (15-37) U/L 23 ALT (14-59) U/L 18 Alkaline Phosphatase (46-116) U/L 186 H Creatine Kinase (26-192) U/L 195 H Total Protein (6.4-8.2) g/dL 8.2 Albumin (3.4-5.0) g/dL 3.4 Range/Units 11/24/19 15:50 WBC (4.4-10.8) k/cumm RBC (4.00-5.20) m/cumm Hgb (12.0-15.5) g/dL Hct (36.0-46.0) % MCV (80-95) fL MCH (27.0-33.0) pg MCHC (32.0-36.0) g/dL RDW (11.7-14.6) % Plt Count (130-400) x1000/uL MPV (8.0-11.0) fL Immature Gran % % Neutrophils % Lymphocytes % Monocytes % Eosinophils % Basophils % Absolute Neutrophils (1.2-6.7) k/cumm Absolute Lymphocytes (1.2-3.4) k/cumm Absolute Monocytes (0.11-0.7) k/cumm Absolute Eosinophils (0.0-0.7) k/cumm Absolute Basophils (0.0-0.2) k/cumm Sodium (136-145) mmol/L Potassium (3.5-5.1) mmol/L Chloride (98-107) mmol/L Carbon Dioxide (21.0-32.0) mmol/L Anion Gap (3-11) mmol/L BUN (7-18) mg/dL Creatinine (0.55-1.02) mg/dL Estimated GFR/1.73 m2 (mL/min/1.73m2) Glucose (74-106) mg/dL Hemoglobin A1c (3.8-5.6) % 8.0 H Calcium (8.5-10.1) mg/dL Total Bilirubin (0.2-1.0) mg/dL AST (15-37) U/L ALT (14-59) U/L Alkaline Phosphatase (46-116) U/L Creatine Kinase (26-192) U/L Total Protein (6.4-8.2) g/dL Albumin (3.4-5.0) g/dL HPI <Shreya Aquino - Last Filed: 11/25/19 07:56> General Mode of arrival: EMS . Date/Time Provider Initiated Documentation: 11/24/19 15:36 . Limitations to Documentation: no limitations . Information obtained by: EMS . HPI Narrative: 74-year-old female presents via EMS for the second time in 2 days for hypoglycemia. EMS got a blood sugar of 32 with altered mental status on scene she was given D10 IV and presents with a BGL of 116. She is awake and alert at this time upon initial evaluation. Patient is disheveled and is wearing the same depends that are not placed on her yesterday. She is urine and stool soaked. She has some mild redness around her coccyx no signs of trauma. Related Data Home Medications Medication Instructions Recorded Confirmed simvastatin 10 mg PO DAILY #1 tab-cap 04/15/14 11/24/19 aspirin 81 mg PO DAILY 08/10/15 11/24/19 cholecalciferol (vitamin D3) 1,000 units PO DAILY 08/10/15 11/24/19 Lantus Solostar U-100 Insulin 14 units SUB-Q HS 05/04/16 11/24/19 quetiapine [Seroquel] 300 mg PO .QHS 05/05/16 11/24/19 Nicotrol 1 inh INHALATION 4-6XD PRN 10/31/19 11/24/19 gabapentin 100 mg PO TID PRN 10/31/19 11/24/19 polyethylene glycol 3350 [Miralax] 17 g PO DAILY 10/31/19 11/24/19 Vraylar 1.5 mg PO DAILY 11/23/19 11/24/19 Allergies Allergy/AdvReac Type Severity Reaction Status Date / Time Sulfa (Sulfonamide Allergy Unknown Not Unverified 11/24/19 15:39 Antibiotics) recalled Contrast Dye Allergy Unknown feeling of Uncoded 11/24/19 15:39 body burning General Stated Complaint: GenMedical MACARENA: 3 Review of Systems <Shreya Aquino - Last Filed: 11/25/19 07:56> Narrative: Constitutional patient appears thin, she is disheveled, unkept, HEENT: Denies trauma, headaches, blurry vision, nasal discharge, sore throat, trouble swallowing. Chest: Denies chest pain, palpitations, irregular rhythm, hypertension. Respiratory: Denies Shortness of breath, cough, hemoptysis. GI: Denies abdominal pain, nausea, vomiting, diarrhea, constipation. : Denies dysuria, hematuria, flank pain, rectal bleeding. Neuro: Denies dizziness, blurry vision, weakness, syncope, headache or facial numbness. Hematologic: Denies easy bruising, intolerance to heat or cold, hair loss. PFSH <Shreya Aquino - Last Filed: 11/25/19 07:56> Medical History Bipolar disease, chronic Diabetes mellitus Diverticulosis History of colon cancer Hyperlipidemia Lung nodule Proteinuria Renal insufficiency Schizophrenia Tobacco abuse Surgical History Cholecystectomy Colectomy (~2001) right hemicolectomy Colonoscopy - MAC EGD - MAC Hernia Repair, Incisional Social History Smoking/Tobacco Use Status: Current every day Tobacco Type: cigarettes Alcohol Intake: former Drug use: Never Substance use type: does not use Do you feel safe at home: Yes Do you feel safe in your relationship?: Yes Exam <Shreya Kenia - Last Filed: 11/25/19 07:56> Narrative Exam Narrative: Constitutional: Allert and oriented x3. Appears older than stated age. Very thin and unknept. Disheveled. Head: Normocephalic, no trauma. Eyes: Pupils PERRLA, Red reflex noted, EOM's intact. Eyelids symmetrical withour lesions, discharge, or swelling. ENT: Bilateral TM's WNL, External ear normal to inspection, no mastoid TTP, swelling, or erythema, Nasal turbinates WNL, no nasal discharge. Normal dentition, Posterior pharynx WNL, no exudate. Chest: RRR, Normal S1, S2, distal pulses intact. Resp: Lungs clear to auscultation bilaterally, no wheezes, rales, or rhonchi. Musculoskeletal: Normal gait, 5/5 strength to all four extremities. Right knee ecchymosis and left knee contusion. Skin: No suspicious rashes or lesions. Capillary refill ?2 sec. Neurologic: Cranial nerves II-XII intact. Alert and oriented x 3. DTR's intact. Hematologic/Lymphatic: No ecchymosis, no lymphadenopathy. Course <Shreya Aquino - Last Filed: 11/25/19 07:56> Vital Signs Vital signs: Vital Signs Temperature 36.5 C 11/24/19 15:35 Pulse 102 H 11/24/19 15:35 Respiratory Rate 16 11/24/19 15:35 Blood Pressure 133/82 11/24/19 15:35 Pulse Oximetry 98 11/24/19 15:35 Temperature 36.5 C 11/24/19 15:35 Pulse 102 H 11/24/19 15:35 Respiratory Rate 16 11/24/19 15:35 Respiratory Effort Non-Labored 11/24/19 15:38 Blood Pressure 133/82 11/24/19 15:35 Pulse Oximetry 98 11/24/19 15:35 Oxygen Delivery Method Room Air 11/24/19 15:35 Oxygen Flow Rate 0 11/24/19 15:35 Pain Level 0 11/24/19 15:35
[2019-11-24 15:46] VITALS: BP 91/78; PULSE 92; PULSE 96; RESP 14
[2019-11-24 15:47] VITALS: PULSE 87; RESP 26
[2019-11-24 15:50] VITALS: PULSE 87; RESP 16
[2019-11-24 15:56] LABS: Abs Immature Grans 0.01 k/cumm (0.0-0.09); Absolute Basophil Count 0.01 k/cumm (0.0-0.2); Absolute Eosinophil Count 0.04 k/cumm (0.0-0.7); Absolute Lymphocyte Count 0.98 k/cumm (1.2-3.4); Absolute Monocyte Count 0.55 k/cumm (0.11-0.7); Basophils % 0.1; Eosinophils % 0.4; HCT 41.8 % (36.0-46.0); HGB 13.9 g/dL (12.0-15.5); Immature Grans % 0.1 %; Mean Corp. HGB Concentration 33.3 g/dL (32.0-36.0); Mean Corpuscular Hemoglobin 32.1 pg (27.0-33.0); Mean Corpuscular Volume 96.5 fL (80-95); Mean Platelet Volume 10.4 fL (8.0-11.0); Monocytes % 6.2; Neutrophils % 82.2; Platelet Count 279 x1000/uL (130-400); RBC 4.33 m/cumm (4.00-5.20); RBC Distribution Width 13.3 % (11.7-14.6); White Blood Cell Count 8.89 k/cumm (4.4-10.8)
[2019-11-24 16:00] VITALS: PULSE 99; RESP 19
[2019-11-24 16:02] VITALS: BP 128/89; PULSE 81; PULSE 94; RESP 18
[2019-11-24 16:11] LABS: ALT 18 U/L (14-59); AST 23 U/L (15-37); Albumin 3.4 g/dL (3.4-5.0); Alkaline Phosphatase 186 U/L (46-116); Anion Gap 7.8 mmol/L (3-11); BUN 33 mg/dL (7-18); Bilirubin, Total 0.2 mg/dL (0.2-1.0); CO2 29.2 mmol/L (21.0-32.0); CREATININE 1.84 mg/dL (0.55-1.02); Chloride 102 mmol/L (98-107); Creatine Kinase 195 U/L (26-192); Estimated GFR 26.82 (mL/min/1.73m2); Glucose 120 mg/dL (74-106); Potassium 3.5 mmol/L (3.5-5.1); Sodium 139 mmol/L (136-145); Total Protein 8.2 g/dL (6.4-8.2)
--- NOTE | 2019-11-24 16:47 | PDOC.ERCMPRO ---
- If Service Date Differs Date of service: 11/24/19 Time of Service: 16:47 Care Management Progress Note DANIELLE meets with Delmi at the request of the ED provider. She is again presenting to the ED because of low blood sugars. Delmi states she picked up the strips that were called in to the pharmacy yesterday. She also claims to be taking her medication as prescribed. She reports her glucometer is working but EMS advised ED nursing staff that they looked at the glucometer and it is broken. DANIELLE discusses a referral to Home Health with Delmi but she refuses, saying she has been diabetic for 30 years and has managed on her own just fine. DANIELLE telephones [facility] to ask that a new glucometer be ordered for Delmi.
== END 2019-11-24 18:10 | disposition home or self-care (01) ==
PROVIDERS: Registered Nurse Emergency; Emergency Provider Physician Assistant; PCP Family Medicine
DX: E11.649 Type 2 diabetes mellitus with hypoglycemia without coma (principal); S80.01XA Contusion of right knee, initial encounter; S80.02XA Contusion of left knee, initial encounter; W19.XXXA Unspecified fall, initial encounter; E11.9 Type 2 diabetes mellitus without complications; Z79.4 Long term (current) use of insulin
CPT/HCPCS: 36415; 36416; 80053; 82550; 82962; 99284; 83036; 85025; 99283

== ENCOUNTER 2019-11-25 22:45 | Inpatient (IN) | payer MEDICARE, MEDICAID, SELFPAY ==
[2019-11-25 22:46] VITALS: BP 146/77; PULSE 87; RESP 20; TEMP 36.3; O2SAT 95
--- NOTE | 2019-11-25 23:02 | W.ED.GENAD ---
Discharge Plan Disposition Patient Disposition: [facility] INPATIENT Condition: Good Discharge Details Chief Complaint: Diabetes Clinical Impression: Hypoglycemia, Medical non-compliance Admit Date/Time: 11/26/19 00:52 Admit Provider: Maulik Rajput Attending Provider: Maulik Rajput Primary Care Provider: Ean Dhillon ED Provider: Zeke Shannon Medical Decision Making 74-year-old female with a past medical history of diabetes, chronic kidney disease, bipolar, high cholesterol, schizophrenia, presents today for evaluation of hypoglycemia. Patient was brought in today by EMS for evaluation of hypoglycemia. She was noted to be altered at home, her son called 911, upon EMS arrival her blood sugar was 30, she was given 2 shots of maple syrup, as well as D10, had a complete resolution of her altered mental status, and then was brought to the ER for further assessment. Patient gives an atypical convoluted story of how she had a low blood sugar this morning, and thought her hand felt weird, so she gave herself more insulin. She is actually been seen and assessed here twice in the emergency department in the last 72 hours for hypoglycemia. She does take home Lantus, but no other secretagogues or hypoglycemic agents. Is recommended to her that she stopped taking her Lantus, and currently the patient states that she has not taken any insulin since this morning. She denies taking any insulin tonight and states that she has been continuing to eat throughout the day. She does appear to be slightly confused in regards to the scenarios in which she would need to take insulin, it has been recommended that she stop taking her insulin as of late secondary to these hypoglycemic episodes. Patient has no other complaints at this time. No other modifying factors. Physical exam is notably unremarkable. No focal neurologic deficits. She does know where we are, with going on the current scenario, however her seeming lack of understanding for appropriate insulin use is concerning. With no other secretagogue use, I am concerned that her symptoms may be related to insulin misuse, potential abuse, and I do worry that she may not be safe for home as this is her third episode in 2 and half days. We will get basic labs, watch her sugars every hour, closely monitor and reassess. I do feel that she would benefit from admission, case management evaluation, and assessment to see if she is safe to go home. Laboratory work-up is returned, no significant abnormalities, hourly Accu-Cheks demonstrate stable sugar, no more hypoglycemia. She is eating well. Urine drug screen is negative. I do feel that the patient is not safe to go home especially with her continued multiple events keep occurring, I do recommend eventual evaluation by case management, potential placement options, as well as potential evaluation by mental health for safety for her to be at home caring for herself. I discussed the case with Dr. Rajput, he agrees with the assessment and plan. I have extensively reviewed the treatment plan with the patient. I have addressed all patient concerns at this time. I have also discussed the plan with the admitting physician and they agree with the current assessment and plan and have agreed to assume responsibility for the patient. All parties demonstrate verbal understanding and agreement with our assessment and plan at this time. HPI General Date/Time Provider Initiated Documentation: 11/25/19 23:01. HPI Narrative: 74-year-old female with a past medical history of diabetes, chronic kidney disease, bipolar, high cholesterol, schizophrenia, presents today for evaluation of hypoglycemia. Patient was brought in today by EMS for evaluation of hypoglycemia. She was noted to be altered at home, her son called 911, upon EMS arrival her blood sugar was 30, she was given 2 shots of maple syrup, as well as D10, had a complete resolution of her altered mental status, and then was brought to the ER for further assessment. Patient gives an atypical convoluted story of how she had a low blood sugar this morning, and thought her hand felt weird, so she gave herself more insulin. She is actually been seen and assessed here twice in the emergency department in the last 72 hours for hypoglycemia. She does take home Lantus, but no other secretagogues or hypoglycemic agents. Is recommended to her that she stopped taking her Lantus, and currently the patient states that she has not taken any insulin since this morning. She denies taking any insulin tonight and states that she has been continuing to eat throughout the day. She does appear to be slightly confused in regards to the scenarios in which she would need to take insulin, it has been recommended that she stop taking her insulin as of late secondary to these hypoglycemic episodes. Patient has no other complaints at this time. No other modifying factors. Related Data Home Medications Medication Instructions Recorded Confirmed simvastatin 10 mg PO DAILY #1 tab-cap 04/15/14 11/25/19 aspirin 81 mg PO DAILY 08/10/15 11/25/19 cholecalciferol (vitamin D3) 1,000 units PO DAILY 08/10/15 11/25/19 Lantus Solostar U-100 Insulin 14 units SUB-Q HS 05/04/16 11/25/19 quetiapine [Seroquel] 300 mg PO .QHS 05/05/16 11/25/19 Nicotrol 1 inh INHALATION 4-6XD PRN 10/31/19 11/25/19 gabapentin 100 mg PO TID PRN 10/31/19 11/25/19 polyethylene glycol 3350 [Miralax] 17 g PO DAILY 10/31/19 11/25/19 Vraylar 1.5 mg PO DAILY 11/23/19 11/25/19 Allergies Allergy/AdvReac Type Severity Reaction Status Date / Time Sulfa (Sulfonamide Allergy Unknown Not Unverified 11/25/19 22:48 Antibiotics) recalled Contrast Dye Allergy Unknown feeling of Uncoded 11/25/19 22:48 body burning General Stated Complaint: Diabetes MACARENA: 3 Review of Systems All systems reviewed & are unremarkable except as noted in HPI and below PFSH Medical History Bipolar disease, chronic Diabetes mellitus Diverticulosis History of colon cancer Hyperlipidemia Lung nodule Proteinuria Renal insufficiency Schizophrenia Tobacco abuse Surgical History Cholecystectomy Colectomy (~2001) right hemicolectomy Colonoscopy - MAC EGD - MAC Hernia Repair, Incisional Social History Smoking/Tobacco Use Status: Current every day Tobacco Type: cigarettes Alcohol Intake: former Drug use: Never Substance use type: does not use Do you feel safe at home: Yes Do you feel safe in your relationship?: Yes Exam Narrative Exam Narrative: 1.Const: Well-nourished, Well-developed, appearing stated age 2.Eyes: PERRL, no conjunctival injection, and symmetrical lids. 3.ENT: Atraumatic external nose and ears. Moist MM. Neck: Symmetric, trachea midline, No thyromegaly. 4.CVS: +S1/S2, No murmurs or gallops. Peripheral pulses 2+ and equal in all extremities. Brisk capillary refill in all extremities. 5.RESP: Unlabored respiratory effort. Clear to auscultation bilaterally. No wheezes rales or rhonchi 6.GI: Soft, Nontender/Nondistended, No hepatosplenomegaly. No guarding or rebound. 7.MSK: Normocephalic/Atraumatic, Extremities w/o deformity or ttp No cyanosis or clubbing, Normal movement of all extremities 8.Skin: Warm, Dry. No rashes or lesions. 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 Sensation grossly intact, no focal neurologic deficits. 10.Psych: (AAO) x3. Appropriate mood and affect Course Vital Signs Vital signs: Vital Signs Temperature 36.3 C L 11/25/19 22:46 Pulse 87 11/25/19 22:46 Respiratory Rate 11/25/19 22:46 Blood Pressure 146/77 H 11/25/19 22:46 Pulse Oximetry 95 11/25/19 22:46 Temperature 36.3 C L 11/25/19 22:46 Temperature Source Temporal Artery Scan 11/25/19 22:46 Pulse 87 11/25/19 22:46 Respiratory Rate 20 11/25/19 22:46 Respiratory Effort Non-Labored 11/25/19 22:50 Blood Pressure 146/77 H 11/25/19 22:46 Pulse Oximetry 95 11/25/19 22:46 Oxygen Delivery Method Room Air 11/25/19 22:46 Oxygen Flow Rate 0 11/25/19 22:46 Pain Level 0 11/25/19 22:46
[2019-11-25 23:07] LABS: HCT 38.7 % (36.0-46.0); HGB 12.7 g/dL (12.0-15.5); Mean Corp. HGB Concentration 32.8 g/dL (32.0-36.0); Mean Corpuscular Hemoglobin 32.5 pg (27.0-33.0); Mean Platelet Volume 10.9 fL (8.0-11.0); Platelet Count 244 x1000/uL (130-400); RBC 3.91 m/cumm (4.00-5.20); RBC Distribution Width 13.6 % (11.7-14.6); White Blood Cell Count 10.75 k/cumm (4.4-10.8)
[2019-11-25 23:22] LABS: BUN 43 mg/dL (7-18); Calcium 7.9 mg/dL (8.5-10.1); Chloride 104 mmol/L (98-107); Estimated GFR 25.84 (mL/min/1.73m2); Glucose 265 mg/dL (74-106); Potassium 4.2 mmol/L (3.5-5.1); Sodium 140 mmol/L (136-145)
[2019-11-26 00:28] LABS: *AMPHETAMINES SCREEN URINE Negative (Negative); *BARBITURATES SCREEN URINE Negative (Negative); *BENZODIAZEPINES SCREEN URINE Negative (Negative); Cannabinoids THC Negative (Negative); Cocaine Screen,Urine Negative (Negative); METHADONE URINE SCREEN Negative (Negative); OPIATES URINE SCREEN Negative (Negative)
[2019-11-26 00:29] LABS: Tricyclic Antidepressants Negative (Negative)
--- NOTE | 2019-11-26 01:12 | W.PM.HP.N ---
Date of service: 11/26/19 Time of Service: 01:12 Assessment and Plan Assessment and plan (1) Hypoglycemia: Status: Acute Assessment and plan: Hypoglycemia due to inappropriate use of insulin. Patient clearly unable to manage insulin and would advise this be discontinued or be administered in some controlled setting. For now given uncertainty about what may be on board will monitor sugars closely until stable. Usual meds as is otherwise. History of Present Illness History of Present Illness Chief Complaint: hypoglycemia Narrative: 74 female with schizophrenia and DM. has been here now three days in a row with hypoglycemia. has been told to stop taking insulin. Today patient reports she felt funny, notred a sugar of 30 andd took insulin (states she thought insulin was used to treat a low sugar). EMS summoned this evening for altered status, BS 30 noted, given maple syrup and D10 with resolution of altered status. Here in ER [id number]. Given patent inability to safely manage her diabetes, and uncertain meds on board (viz, how much insulin she may have taken) she is admitted for monitoring. No complaints at this time. Review of Systems All systems reviewed & are unremarkable except as noted in HPI and below PFSH Medical History Bipolar disease, chronic Diabetes mellitus Diverticulosis History of colon cancer Hyperlipidemia Lung nodule Proteinuria Renal insufficiency Schizophrenia Tobacco abuse Surgical History Cholecystectomy Colectomy (~2001) right hemicolectomy Colonoscopy - MAC EGD - MAC Hernia Repair, Incisional Social History Smoking/Tobacco Use Status: Current every day Tobacco Type: cigarettes Alcohol Intake: former Drug use: Never Substance use type: does not use Do you feel safe at home: Yes Do you feel safe in your relationship?: Yes Meds Home Medications and Allergies Home Medications Medication Instructions Recorded Confirmed Type simvastatin 10 mg PO DAILY #1 tab-cap 04/15/14 11/25/19 History aspirin 81 mg PO DAILY 08/10/15 11/25/19 History cholecalciferol (vitamin D3) 1,000 units PO DAILY 08/10/15 11/25/19 History Lantus Solostar U-100 Insulin 14 units SUB-Q HS 05/04/16 11/25/19 History quetiapine [Seroquel] 300 mg PO .QHS 05/05/16 11/25/19 History Nicotrol 1 inh INHALATION 4-6XD PRN 10/31/19 11/25/19 History gabapentin 100 mg PO TID PRN 10/31/19 11/25/19 History polyethylene glycol 3350 [Miralax] 17 g PO DAILY 10/31/19 11/25/19 History Vraylar 1.5 mg PO DAILY 11/23/19 11/25/19 History Allergies Allergy/AdvReac Type Severity Reaction Status Date / Time Sulfa (Sulfonamide Allergy Unknown Not Unverified 11/25/19 22:48 Antibiotics) recalled Contrast Dye Allergy Unknown feeling of Uncoded 11/25/19 22:48 body burning Exam Narrative Exam Narrative: 146/77, 87, 20. 36.3.HEENT atraumatic; neck supple; lungs clear, heart RRR, abdomen soift and NT; extremities w/o edema; neuro, Ox3, moves all 4s, loquacious Results Labs Result diagrams: 11/25/19 22:55 11/25/19 22:55 Labs: Laboratory Results - last 24 hr 11/25/19 11/25/19 11/26/19 22:55 22:55 00:00 WBC 10.75 RBC 3.91 L Hgb 12.7 Hct 38.7 MCV 99.0 H MCH 32.5 MCHC 32.8 RDW 13.6 Plt Count 244 MPV 10.9 Sodium 140 Potassium 4.2 Chloride 104 Carbon Dioxide 25.0 Anion Gap 11.0 BUN 43 H D Creatinine 1.90 H Estimated GFR/1.73 m2 25.84 Glucose 265 H D Calcium 7.9 L Urine Opiates Screen Negative Urine Methadone Screen Negative Ur Barbiturates Screen Negative Ur Tricyclics Screen Negative Ur Amphetamines Screen Negative U Benzodiazepines Scrn Negative Urine Cocaine Screen Negative Ur THC Screen Negative Last Vital Signs Temp 36.3 C L 11/25/19 22:46 Pulse 87 11/25/19 22:46 Resp 20 11/25/19 22:46 BP 146/77 H 11/25/19 22:46 Pulse Ox 95 11/25/19 22:46
[2019-11-26 01:30] VITALS: BP 100/73; PULSE 94; RESP 16; TEMP 36.7; O2SAT 98
[2019-11-26 01:54] VITALS: BP 133/66; PULSE 94; RESP 18; TEMP 37.3; O2SAT 96
[2019-11-26] MEDS: QUEtiapine 300 MG TAB PO (02:27)
[2019-11-26 03:06] VITALS: BP 133/66; PULSE 96; RESP 18; TEMP 37.3; O2SAT 96
[2019-11-26 07:45] VITALS: BP 125/60; PULSE 110; RESP 20; TEMP 36.4; O2SAT 97
[2019-11-26] MEDS: Aspirin 81 MG CHEW PO (07:45)
[2019-11-26] MEDS: Simvastatin 10 MG TAB PO (07:45)
--- NOTE | 2019-11-26 08:32 | INITIAL_ITS ---
- If Service Date Differs Date of service: 11/26/19 Time of Service: 08:32 Care Management Initial Assess REASON FOR HOSPITALIZATION:: Hypoglycemia PAST MEDICAL HISTORY/PAST SURGICAL HISTORY:: Bipolar disease, chronic. Diabetes mellitus. Diverticulosis. History of colon cancer. Hyperlipidemia. Lung nodule. Proteinuria. Renal insufficiency. Schizophrenia. Tobacco abuse. Surgical History . Cholecyste ctomy. Colectomy right hemicolectomy. Colonoscopy - MAC. EGD - MAC. Hernia Repair, Incisional PREVIOUS FUNCTIONAL STATUS/SOCIAL/FAMILY SUPPORTS:: Delmi lives with her son Abran in [place], [place]. She has [employer] support and uses [facility] for transportation. CURRENT FUNCTIONAL STATUS:: Delmi is dressed sitting up in the chair she wants to be discharged home. [employer] CM (Steven) did come in and eval her today and determined that she is at her baseline from a mental health stand point. CM discussed with Delmi providers instructions of not taking her insulin. She states she has been having numbness on the right side and she thought the insulin would keep her from having a stroke. CM reviewed the risk of injecting insulin when it is not needed. Delmi acknowledges the education and states that she will not take the insulin any more. CM contacted her son Abran and requested he remove all the insulin from the home which he is willing to do. CM reviewed home supports and Delmi agrees to home health nursing. Abran states he will provide ongoing support to Delmi when she returns home and that he is happy to have her home. ADVANCE DIRECTIVES:: None on file does not want to complete at this time. Has patient been provided with information about the portal?: Yes Did the patient sign up for the portal?: No INSURANCE COVERAGE / FINANCIAL ISSUES:: Medicare and Medicaid CURRENT HOME/COMMUNITY SERVICES/EQUIPMENT:: [employer] through [facility], [facility] for transport PRIMARY CARE PHYSICIAN:: POTENTIAL DISCHARGE NEEDS:: New home health nursing medication management r/t insulin management, discountinue of medication and teaching related to new medcations. PATIENT/FAMILY EDUCATION NEEDS:: Discharge education, limitations and follow up plan of care including ask me three and self management. Education to son to discuss removing of insulin and discontinuing of medicaiton. CM reviewed with son new services including home health. CM contacted [employer] and notified CM of discharge. ANTICIPATED BARRIERS TO DISCHARGE:: None TRANSPORTATION:: Via [facility] coordianted by CM PLAN:: Delmi will be discharged home today with new home health services, ongoing support by [employer], [facility] and son at home. She will discontinue insulin, CM has communicated to all home services and with son over the phone to provide support discharge plan for patient.
[2019-11-26 12:00] LABS: Abs Immature Grans 0.01 k/cumm (0.0-0.09); Absolute Basophil Count 0.03 k/cumm (0.0-0.2); Absolute Eosinophil Count 0.17 k/cumm (0.0-0.7); Absolute Lymphocyte Count 1.43 k/cumm (1.2-3.4); Absolute Monocyte Count 0.57 k/cumm (0.11-0.7); Absolute Neutrophil Count 4.01 k/cumm (1.2-6.7); Basophils % 0.5; Eosinophils % 2.7; HCT 33.8 % (36.0-46.0); HGB 10.8 g/dL (12.0-15.5); Immature Grans % 0.2 %; Mean Corpuscular Hemoglobin 31.7 pg (27.0-33.0); Mean Corpuscular Volume 99.1 fL (80-95); Mean Platelet Volume 10.8 fL (8.0-11.0); Monocytes % 9.2; Neutrophils % 64.4; Platelet Count 203 x1000/uL (130-400); RBC 3.41 m/cumm (4.00-5.20); RBC Distribution Width 13.6 % (11.7-14.6); White Blood Cell Count 6.22 k/cumm (4.4-10.8)
[2019-11-26 12:17] LABS: Anion Gap 10.5 mmol/L (3-11); BUN 50 mg/dL (7-18); CO2 19.5 mmol/L (21.0-32.0); CREATININE 1.97 mg/dL (0.55-1.02); Calcium 7.6 mg/dL (8.5-10.1); Chloride 106 mmol/L (98-107); Estimated GFR 24.78 (mL/min/1.73m2); Glucose 244 mg/dL (74-106); Sodium 136 mmol/L (136-145)
--- NOTE | 2019-11-26 12:38 | PDOC.MHCN ---
Date of service: 11/26/19 Time of Service: 12:38 Mental Health Crisis Note Presenting Issue How did you arrive at the ED and why did you come: Delmi was admitted for hypoglycemia. A mental health screening was requested by hospital staff to assess baseline and the client's ability to make sound decisions. Precipitating Factors Client was lying in bed eating lunch when this screener entered the room. Client denied HI/SI. She explained that she has been experiencing low blood sugar at home. It was reported to this screener by care management staff that Delmi has come to the ER on multiple occasions due to hypoglycemia. Delmi shared that she has been experiencing numbness in her body when her blood sugar is low--she also said she had fallen on the floor due to low blood sugar and feeling numb--she was on the floor for 9+ hours. She said she had been taking her insulin late at night. Her PCP had advised her to stop taking insulin altogether, however, Delmi continued to use her insulin pen at home because she was getting LOW blood sugar readings on her glucometer. She also reported she didn't think her insulin pen wasn't working correctly. Despite the safety concerns of her being at home, she is at baseline and able to make decisions for herself. Disposition BEHAVIOR: Baseline. Very talkative. EYE CONTACT: Good eye contact. Some eye closing and nodding her head as if she was going to sleep, but then opening her eyes, picking her head up and resuming conversation. MOOD: Pleasant and cooperative. AFFECT: Animated. APPETITE: No trouble eating. Good appetite. SLEEP(trouble falling/staying asleep: Client said she had stayed up late last night. Plan The plan is to continue to have her here at [facility] to monitor her hypoglycemia. If she is discharged this weekend Care Management staff will page the on-call EMERGENCY VEHICLE TECHNICIAN emergency person. There is a plan to send a referral for nursing to Home Health. Delmi currently has housekeeping through Home Health. Signature Clinician's Name/Title: Keisha Huber BA ([place]) [facility] EMERGENCY VEHICLE TECHNICIAN Java Program[employer] [facility]
[2019-11-26] MEDS: Insulin Aspart 300 UNITS/3 ML PEN SC (12:50)
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
--- NOTE | 2019-11-26 15:10 | PDOC.HHF2F_ITS ---
Home Health Certification Home Health Certification: 1. Encounter Date and Reason I certify that MARIANELA WEAVER was seen by Irina Coates on 11/26/19 and that I had a [id number] encounter with this patient that meets the physician face to face encounter requirements. 2. Clinical Findings Supporting Skilled Need and Homebound Status I certify that home health services are medically necessary, include either intermittent long term and/or physical/speech therapy, and that this patient is homebound in that absences from the home require considerable and taxing effort and are infrequent or of short duration, or are attributable to the need to receive medical care. [X] (a) Attached documentation from encounter provides clinical findings supporting skilled need and homebound status (including what assistance patient requires to leave the home). The encounter with the patient was in whole, or in part, for the following medical condition, which is the primary reason for home health care: HYPOGLYCEMIA Half-Way: patient with diabetes, taking insulin inappropriately; therapy is being changed to januvia instead; assess medication compliance/perform teaching. Homebound: unable to leave home without assistance 3. Certification and Authentication I certify that I composed the above information based on my clinical judgement relating to this patient's medical condition and, if applicable, clinical findings communicated to me by the NPP or inpatient physician who performed the Home Health Referral. All further orders will be obtained through _Dr Dhillon (Community Based Physician - PCP)
== END 2019-11-26 16:55 | disposition home health service (06) | DRG 918 ==
LOC: ER 11-26 01:26 → MS 11-26 01:34
PROVIDERS: Internal Medicine; Admitting Provider General Practice; Emergency Provider Student in an Organized Health Care Education/Training Program; PCP Family Medicine; Visit Provider General Practice
DX: T38.3X1A Poisoning by insulin and oral hypoglycemic [antidiabetic] drugs, accidental (unintentional), initial encounter (principal); E11.649 Type 2 diabetes mellitus with hypoglycemia without coma; Z79.4 Long term (current) use of insulin; E11.22 Type 2 diabetes mellitus with diabetic chronic kidney disease; F20.9 Schizophrenia, unspecified; Z91.14 Patient's other noncompliance with medication regimen; F31.9 Bipolar disorder, unspecified; K57.90 Diverticulosis of intestine, part unspecified, without perforation or abscess without bleeding; E78.5 Hyperlipidemia, unspecified; F17.210 Nicotine dependence, cigarettes, uncomplicated; R91.1 Solitary pulmonary nodule; Z85.038 Personal history of other malignant neoplasm of large intestine; Z90.49 Acquired absence of other specified parts of digestive tract; N18.9 Chronic kidney disease, unspecified
CPT/HCPCS: 36415; 36416; 80048; 80307; 82962; 85027; 99221; 99238; 99285; 83735; 84681; 85025; 99284; G0378; J3490

== ENCOUNTER 2019-12-01 00:20 | Outpatient (CLI) | payer MEDICARE, MEDICAID, SELFPAY ==
--- NOTE | 2019-12-01 | DI.CT_ITS ---
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 Images obtained through t he upper abdomen show unremarkable appearance of visualized portions of liver, spleen, adrenals and p ancreas. Previously described right upper lobe mass is again noted, this appears slightly larger than on prior study with increasing confluence of pleural based radiodensities noted as well. Maximal diameter of the mass on transaxial images is about 3 cm. Slight prominence of superior mediastinal lymph nodes again noted, slightly increased from prior study. Largest superior mediastinal lymph node is about 1 2 millimeters in greatest diameter. Slight prominence of pretracheal nodes also noted. No additiona l mediastinal mass. No pleural effusion. No satellite intrapulmonary lesions as identified on this somewhat limited scan with motion artifact. Diffuse fibrotic and emphysematous changes again noted. IMPRESSION: Slight interval increase in size of right upper lobe mass in a patient with history of right upper lo be lung carcinoma. Minimal increase in prominence of small superior mediastinal nodes.
== END 2019-12-01 00:40 ==
PROVIDERS: PCP Family Medicine; Visit Provider Radiology Radiation Oncology
DX: C34.11 Malignant neoplasm of upper lobe, right bronchus or lung (principal); R59.0 Localized enlarged lymph nodes; J43.8 Other emphysema
CPT/HCPCS: 71250

== ENCOUNTER 2019-12-14 10:34 | Outpatient (REF) | payer MEDICARE, MEDICAID, SELFPAY ==
[2019-12-14 17:51] LABS: HCT 38.5 % (36.0-46.0); HGB 12.3 g/dL (12.0-15.5); Mean Corp. HGB Concentration 31.9 g/dL (32.0-36.0); Mean Corpuscular Hemoglobin 32.1 pg (27.0-33.0); Mean Corpuscular Volume 100.5 fL (80-95); Platelet Count 243 x1000/uL (130-400); RBC 3.83 m/cumm (4.00-5.20); RBC Distribution Width 13.9 % (11.7-14.6); White Blood Cell Count 6.62 k/cumm (4.4-10.8)
[2019-12-14 17:55] LABS: Anion Gap 10.4 mmol/L (3-11); BUN 25 mg/dL (7-18); CO2 23.6 mmol/L (21.0-32.0); CREATININE 1.79 mg/dL (0.55-1.02); Calcium 8.5 mg/dL (8.5-10.1); Chloride 107 mmol/L (98-107); Estimated GFR 27.68 (mL/min/1.73m2); Glucose 193 mg/dL (74-106); Potassium 5.1 mmol/L (3.5-5.1); Sodium 141 mmol/L (136-145)
[2019-12-14 17:58] LABS: Iron 168 ug/dL (50-170); Total Iron Binding Capacity 293 ug/dL (250-450); Transferrin Sat 57 % (15-50)
== END 2019-12-14 10:54 ==
LOC: NCHCN 10:34
PROVIDERS: PCP Family Medicine; Visit Provider Family Medicine
DX: D64.9 Anemia, unspecified (principal); N18.4 Chronic kidney disease, stage 4 (severe)
CPT/HCPCS: 80048; 85027; 83540; 83550

== ENCOUNTER 2020-04-04 02:10 | Outpatient (CLI) | payer MEDICARE, MEDICAID, SELFPAY ==
--- NOTE | 2020-04-04 14:30 | DI.CT_ITS ---
EXAM: CT CHEST WO CLINICAL HISTORY: RUL LUNG CA,C34.11,S/P TREATMENT, ? STATUS OF DISEASE. TECHNIQUE: Imaging protocol: Axial computed tomography images were obtained and coronal and sagittal reformatted images were created and reviewed. COMPARISON: CT CT CHEST WO from 12/01/2019 FINDINGS: There is marked patient motion artifact. Tracheobronchial tree: Patent where visualized. Mediastinum and Emma: Evaluation of the mediastinum is limited due to patient motion artifact. No ap parent change in the lymph nodes in the mediastinum is seen. Pulmonary parenchyma: There has been interval decrease in size of the right upper lobe mass currently measuring 2.3 cm compared with 3.0 cm on the prior examination. Pulmonary emphysematous changes are again noted. There is scarring in the right upper lobe. No focal consolidating infiltrates. Pleura: No effusion or pneumothorax. Heart: The heart is not dilated. No coronary artery calcifications are seen. No significant pericardi al effusion. Aorta: Thoracic aorta non-dilated. Atherosclerosis. Upper abdomen: Unremarkable. Lymph nodes: Please see above. Bones:Degenerative changes.There is motion artifact in the ribs adjacent to the right upper lobe mass limiting evaluation. Soft tissues: Unremarkable. IMPRESSION: 1. Examination is limited due to patient motion artifact. 2. Interval decrease in size of the right upper lobe mass. 3. Pulmonary scarring and emphysema. RADIATION DOSE DELIVERED: Total DLP Total DLP DATA REPOSITORY: All CT scans at this facility are submitted to the National Radiology Data Registry (NRDR) Dose Index Registry (DIR) with the [employer] ([employer]). RADIATION OPTIMIZATION: All CT scans at this facility use at least one of these dose optimization te chniques: automated exposure control; mA and/or kV adjustment per patient size (includes targeted exa ms where dose is matched to clinical indication); or iterative reconstruction.
== END 2020-04-04 02:30 ==
PROVIDERS: PCP Family Medicine; Visit Provider Nurse Practitioner Family
DX: C34.11 Malignant neoplasm of upper lobe, right bronchus or lung (principal); J43.9 Emphysema, unspecified
CPT/HCPCS: 71250

== ENCOUNTER 2020-06-20 16:14 | Outpatient (REF) | payer MEDICARE, MEDICAID, SELFPAY ==
[2020-06-20 19:49] LABS: HCT 39.3 % (36.0-46.0); HGB 12.8 g/dL (11.2-15.7); MCH 32.9 pg (27.0-33.0); MCHC 32.6 % (32.0-36.0); MPV 11.9 fL (8.0-11.0); Platelet Count 228 10^3/uL (130-400); RBC 3.89 10^6/uL (3.93-5.22); RDW 12.7 % (11.7-14.6); RDW-SD 46.8 fL; WBC 8.69 10^3/uL (4.4-10.8)
[2020-06-20 20:05] LABS: ALT 22 U/L (14-59); AST 15 U/L (15-37); Albumin 3.4 g/dL (3.4-5.0); Alkaline Phosphatase 204 U/L (46-116); Anion Gap 9.7 mmol/L (3-11); BUN 20 mg/dL (7-18); Bilirubin, Total 0.3 mg/dL (0.2-1.0); CO2 26.3 mmol/L (21.0-32.0); CREATININE 1.86 mg/dL (0.55-1.02); Calcium 8.6 mg/dL (8.5-10.1); Chloride 101 mmol/L (98-107); Estimated GFR 26.41 (mL/min/1.73m2); Glucose 378 mg/dL (74-106); PHOSPHORUS 4.5 mg/dL (2.6-4.7); Sodium 137 mmol/L (136-145); Total Protein 6.9 g/dL (6.4-8.2)
[2020-06-22 10:53] LABS: Parathyroid Hormone,Intact 369 pg/mL (19-88)
== END 2020-06-20 16:34 ==
LOC: NCHCN 16:14
PROVIDERS: PCP Family Medicine; Visit Provider Family Medicine
DX: N18.4 Chronic kidney disease, stage 4 (severe) (principal); E04.2 Nontoxic multinodular goiter
CPT/HCPCS: 80053; 85027; 83970; 84100

== ENCOUNTER 2020-07-09 00:22 | Outpatient (CLI) | payer MEDICARE, MEDICAID, SELFPAY ==
--- NOTE | 2020-07-09 | DI.CT_ITS ---
EXAM: CT CHEST WO CLINICAL HISTORY: H/O RUL LUNG CA,C34.11,S/P TREATMENT, ?STATUS OF DISEASE TECHNIQUE: COMPARISON: CT CT CHEST WO from 04/04/2020 FINDINGS: CT examination of the chest was performed without contrast administration. Examination is compared w ith most recent chest CT April 04. Patient reportedly has a history of right upper lobe lung carcin [place]. Previously noted persistent right upper lobe mass with adjacent predominantly linear areas of increas ed radiodensities again seen, little if any interval change in appearance comparison with prior study . Due to severe motion artifact, mediastinal lymph nodes are difficult to evaluate but no gross audrey opathy is seen and there has been no gross change from the prior study. No pleural effusion seen. T he tracheobronchial tree appears intact. No gross supraclavicular or axillary adenopathy. Visualize d portions of liver, spleen, and adrenals are grossly unremarkable. Severe underlying COPD again not ed. IMPRESSION: The examination is technically very limited due to patient motion. No gross interval change in right upper lobe lung carcinoma. No additional new findings. RADIATION DOSE DELIVERED: 475.8mGy.cm Total DLP
== END 2020-07-09 00:42 ==
PROVIDERS: PCP Family Medicine; Visit Provider Nurse Practitioner Family
DX: C34.11 Malignant neoplasm of upper lobe, right bronchus or lung (principal)
CPT/HCPCS: 71250

== ENCOUNTER 2020-12-24 13:30 | Emergency (ER) | payer MEDICARE, MEDICAID, SELFPAY ==
[2020-12-24] VITALS (54 sets, daily range): BP systolic 105–167; BP diastolic 61–113; PULSE 87–109; RESP 15–38; TEMP 36.8; O2SAT 91–100
--- NOTE | 2020-12-24 13:15 | RT.EKG_ITS ---
APPROVED REPORT Exam: Resting ECG Patient Location: E HR:99 bpm ECG Measurements Heart Rate 99 AXIS DC 186 P 48 QRSd 107 QRS -64 QT 374 T 94 QTc 481 Conclusion Sinus rhythm...normal P axis, V-rate 60- 99 Left anterior fascicular block...axis(240,-40), init forces inf LVH with secondary repolarization abnormality...multi-LVH criteria, abnrm ST-T. Artifact. LAFB. LVH. No significant change from previous. I have reviewed and interpreted ECG and agree with software generated interpretation.
--- NOTE | 2020-12-24 13:30 | DI.CT_ITS ---
EXAM: CT HEAD WO CLINICAL HISTORY: ams. TECHNIQUE: Imaging Protocol: Axial computed tomography images with coronal and sagittal reformatted images were created and reviewed COMPARISON: CT CT HEAD - STROKE PROTOCOL from 10/31/2019 FINDINGS: There are no skull fractures nor fluid in the visualized paranasal sinuses. There is no evidence of intracranial hemorrhage, mass effect, or shift of midline structures. No ext ra-axial fluid collections. Ventricles are not enlarged or shifted. There is no blood within the ve ntricular system nor within the basal cisterns Mild ventricular hypodensity consistent with chronic small vessel disease noted. IMPRESSION: No acute intracranial findings on this noninfused CT scan of the brain. RADIATION DOSE DELIVERED: 661.07mGy.cm Total DLP DATA REPOSITORY: All CT scans at this facility are submitted to the National Radiology Data Registry (NRDR) Dose Index Registry (DIR) with the [employer] (ACR). RADIATION OPTIMIZATION: All CT scans at this facility use at least one of these dose optimization te chniques: automated exposure control; mA and/or kV adjustment per patient size (includes targeted exa ms where dose is matched to clinical indication); or iterative reconstruction.
--- NOTE | 2020-12-24 13:34 | DI.RAD_ITS ---
EXAM: XR CHEST 1V IN DI DEPT CLINICAL HISTORY: ams. TECHNIQUE: 2D digital imaging was performed. COMPARISON: CR XR CHEST 2V PA LATERAL from 10/31/2019 FINDINGS: Heart size is normal. The mediastinum is not widened. Left lung is clear. Infiltrate extending from the hilum out to the right pleural surface is unchange d. There are no pleural effusions. No pneumothorax IMPRESSION: Persistent right upper lobe infiltrate, unchanged from October 2019. Apparently there is a history of malignancy. DATA REPOSITORY: RADIATION DOSE DELIVERED: All CT scans at this facility use at least one of these dose optimization techniques: automated exposure control; mA and/or kV adjustment per patient size (includes targeted e xams where dose is matched to clinical indication); or iterative reconstruction.
[2020-12-24 13:49] LABS: Abs Immature Grans 0.03 10^3/uL (0.0-0.06); Absolute Basophil Count 0.03 10^3/uL (0.0-0.2); Absolute Eosinophil Count 0.07 10^3/uL (0.0-0.7); Absolute Lymphocyte Count 0.85 10^3/uL (1.2-3.4); Absolute Monocyte Count 0.28 10^3/uL (0.1-0.8); Absolute Neutrophil Count 4.92 10^3/uL (1.2-6.7); Basophils % 0.5; Eosinophils % 1.1; HCT 37.2 % (36.0-46.0); HGB 12.1 g/dL (11.2-15.7); Immature Grans % 0.5; Lymphocytes % 13.8; MCH 33.1 pg (27.0-33.0); MCHC 32.5 % (32.0-36.0); MCV 101.6 fL (80-95); MPV 10.6 fL (8.0-11.0); Monocytes % 4.5; Neutrophils % 79.6; Nucleated RBC 0 %; Platelet Count 204 10^3/uL (130-400); RBC 3.66 10^6/uL (3.93-5.22); RDW-SD 48.2 fL; WBC 6.18 10^3/uL (4.4-10.8)
--- NOTE | 2020-12-24 14:04 | ED.GENADUL_ITS ---
Discharge Plan Disposition Patient Disposition: STILL A PATIENT Condition: Stable Discharge Details Chief Complaint: Diabetes Clinical Impression: Hypoglycemia Primary Care Provider: Ean Dhillon ED Provider: Marcelino Villa Home Meds and New Rx's Prescriptions: No Action simvastatin 10 MG tablet 10 mg PO DAILY Qty: 1 RF: 0 aspirin 81 MG tablet,chewable 81 mg PO DAILY RF: 0 cholecalciferol (vitamin D3) 1,000 UNITS tablet 1,000 units PO DAILY RF: 0 quetiapine [Seroquel] 300 MG tablet 300 mg PO .QHS RF: 0 Januvia 25 mg tablet 25 mg PO DAILY Qty: 30 RF: 0 Nicotrol 10 mg Cartridge 1 inh INHALATION 4-6XD PRNRF: 0 gabapentin 100 mg Capsule 100 mg PO TID PRNRF: 0 polyethylene glycol 3350 [Miralax] 17 gram/dose Powder 17 g PO DAILY RF: 0 Vraylar 1.5 mg Capsule 1.5 mg PO DAILY RF: 0 Basaglar KwikPen U-100 Insulin 100 unit/mL (3 mL) insulin pen SUBCUT RF: 0 Medical Decision Making This is a 75-year-old female with past medical history of diabetes, renal insufficiency, current smoker, bipolar and schizophrenia. She is presenting having felt weak sometime this morning lowering herself to the ground and unable to get up on her own. Will obtain CPK for potential rhabdo. She denies any i njury from lowering herself to the ground. She is a rather vague and poor historian and therefore I will obtain a CT of her head. Will initiate IV access, cardiac work-up, and monitor her glucose. Fingerstick glucose upon arrival was 147. Laboratory values reveal a white blood cell count of 6.17 hemoglobin 12.1 hematocrit 37.2 platelet count 204. INR 0.9 sodium 140 potassium 4.1 chloride 106 BUN 33 creatinine 2.0 GFR 24.29. Her renal function appears near baseline. Glucose 164 magnesium 2.3 CPK 74, TSH 1.41 Chest x-ray read by radiology has persistent right upper lobe infiltrate, uncha nged from October 2019 Repeat fingerstick glucose 57. Patient remains asymptomatic. This is a rather sudden change from her glucose recently of 147. We will give an amp of glucose and have her eat a full meal. At this time we discussed admission, she declines. She is adamant that she did not take any extra insulin. She is agreeable to observation in the ER for serial glucose checks after she eats a full meal. Repeat fingerstick at approximately 1530 was 218. At [address] Case signed out to Dr. Oef Guevara pending observation, serial glucose monitoring, and potential observation admission if patient is agreeable. Medical Records Medical records reviewed: Yes I reviewed the patient's medical records. Imaging Data Radiologic Study: Attestation: I personally reviewed and interpreted this imaging study as follows: Imaging: CT Scan Radiologist's impression: CT head negative Lab Data Lab results reviewed: Yes I reviewed the patient's lab results. Labs: Laboratory Tests Range/Units 12/24/20 12/24/20 12/24/20 13:25 13:25 13:25 WBC (4.4-10.8) 10^3/uL RBC (3.93-5.22) 10^6/uL Hgb (11.2-15.7) g/dL Hct (36.0-46.0) % MCV (80-95) fL MCH (27.0-33.0) pg MCHC (32.0-36.0) % RDW (11.7-14.6) % Plt Count (130-400) 10^3/uL MPV (8.0-11.0) fL Immature Gran % Neutrophils % Lymphocytes % Monocytes % Eosinophils % Basophils % Nucleated RBC % % Absolute Neutrophils (1.2-6.7) 10^3/uL Absolute Lymphocytes (1.2-3.4) 10^3/uL Absolute Monocytes (0.1-0.8) 10^3/uL Absolute Eosinophils (0.0-0.7) 10^3/uL Absolute Basophils (0.0-0.2) 10^3/uL PT (9.3-11.0) sec 9.5 INR (0.9-1.1) 0.9 APTT (21.0-27.5) sec 22.4 Sodium (136-145) mmol/L 140 Potassium (3.5-5.1) mmol/L 4.1 Chloride (98-107) mmol/L 106 Carbon Dioxide (21.0-32.0) mmol/L 20.5 L Anion Gap (3-11) mmol/L 13.5 H BUN (7-18) mg/dL 33 H Creatinine (0.55-1.02) mg/dL 2.0 H Estimated GFR/1.73 m2 (mL/min/1.73m2) 24.29 Glucose (74-106) mg/dL 164 H Calcium (8.5-10.1) mg/dL 8.8 Magnesium (1.8-2.4) mg/dL 2.3 Total Bilirubin (0.2-1.0) mg/dL 0.2 AST (15-37) U/L 19 ALT (14-59) U/L 24 Alkaline Phosphatase (46-116) U/L 159 H Creatine Kinase (26-192) U/L 74 Troponin I (<0.06) ng/mL < 0.05 Total Protein (6.4-8.2) g/dL 7.3 Albumin (3.4-5.0) g/dL 3.4 TSH (0.36-3.74) uIU/mL 1.41 Range/Units 12/24/20 13:25 WBC (4.4-10.8) 10^3/uL 6.18 RBC (3.93-5.22) 10^6/uL 3.66 L Hgb (11.2-15.7) g/dL 12.1 Hct (36.0-46.0) % 37.2 MCV (80-95) fL 101.6 H MCH (27.0-33.0) pg 33.1 H MCHC (32.0-36.0) % 32.5 RDW (11.7-14.6) % 13.0 Plt Count (130-400) 10^3/uL 204 MPV (8.0-11.0) fL 10.6 Immature Gran % 0.5 Neutrophils % 79.6 Lymphocytes % 13.8 Monocytes % 4.5 Eosinophils % 1.1 Basophils % 0.5 Nucleated RBC % % 0 Absolute Neutrophils (1.2-6.7) 10^3/uL 4.92 Absolute Lymphocytes (1.2-3.4) 10^3/uL 0.85 L Absolute Monocytes (0.1-0.8) 10^3/uL 0.28 Absolute Eosinophils (0.0-0.7) 10^3/uL 0.07 Absolute Basophils (0.0-0.2) 10^3/uL 0.03 PT (9.3-11.0) sec INR (0.9-1.1) APTT (21.0-27.5) sec Sodium (136-145) mmol/L Potassium (3.5-5.1) mmol/L Chloride (98-107) mmol/L Carbon Dioxide (21.0-32.0) mmol/L Anion Gap (3-11) mmol/L BUN (7-18) mg/dL Creatinine (0.55-1.02) mg/dL Estimated GFR/1.73 m2 (mL/min/1.73m2) Glucose (74-106) mg/dL Calcium (8.5-10.1) mg/dL Magnesium (1.8-2.4) mg/dL Total Bilirubin (0.2-1.0) mg/dL AST (15-37) U/L ALT (14-59) U/L Alkaline Phosphatase (46-116) U/L Creatine Kinase (26-192) U/L Troponin I (<0.06) ng/mL Total Protein (6.4-8.2) g/dL Albumin (3.4-5.0) g/dL TSH (0.36-3.74) uIU/mL ECG Data Attestation: I personally reviewed and interpreted this ECG (s) as follows: Interpretation: Please see official report by Dr. Infante. Sinus rhythm, ventricular rate of 99. Left anterior fascicular block. LVH. HPI General Mode of arrival: EMS . Date/Time Provider Initiated Documentation: 12/24/20 13:34 . Limitations to Documentation: altered mental status . Information obtained by: patient and EMS . HPI Narrative: This is a 75-year-old female, past medical history of insulin-dependent diabetes, schizophrenia, bipolar disease, hypoglycemia, medical noncompliance, current smoker, CKD, presenting to the ER today via EMS for evaluation. Unfortunately patient is a vague and poor historian. It appears as though she took her insulin as she typically does last night, and subsequently had a bowl of oatmeal. It is unclear whether she took her insulin this morning. She has not eaten anything today. Patient states that she felt weak, lowered herself to the ground, and could not get up. She did not fall to the ground and she did not sustain any injuries. She is unsure exactly what time this took place. Subsequently throughout the morning she called toward the door, and neighbor saw her laying on the ground, and EMS was called. Glucose noted to be 37. Given glucose and upon arrival glucose is 147. Patient assures me that she did not take any extra insulin. She denies recent illness or trauma. Denies headache, visual change, neck pain, chest pain, shortness of breath, abdominal pain, nausea, vomiting, focal weakness, numbness, tingling, change in bowel or bladder function. Related Data Home Medications Medication Instructions Recorded Confirmed simvastatin 10 mg PO DAILY #1 tab-cap 04/15/14 12/24/20 aspirin 81 mg PO DAILY 08/10/15 12/24/20 cholecalciferol (vitamin D3) 1,000 units PO DAILY 08/10/15 12/24/20 quetiapine [Seroquel] 300 mg PO .QHS 05/05/16 12/24/20 Nicotrol 1 inh INHALATION 4-6XD PRN 10/31/19 12/24/20 gabapentin 100 mg PO TID PRN 10/31/19 12/24/20 polyethylene glycol 3350 [Miralax] 17 g PO DAILY 10/31/19 12/24/20 Vraylar 1.5 mg PO DAILY 11/23/19 11/25/19 sitagliptin [Januvia] 25 mg PO DAILY #30 tab 11/26/19 insulin glargine [Basaglar KwikPen SUBCUT 12/24/20 U-100 Insulin] Previous Rx's Medication Instructions Recorded sitagliptin [Januvia] 25 mg PO DAILY #30 tab 11/26/19 Allergies Allergy/AdvReac Type Severity Reaction Status Date / Time Sulfa (Sulfonamide Allergy Unknown Not Unverified 12/24/20 14:34 Antibiotics) recalled Contrast Dye Allergy Unknown feeling of Uncoded 12/24/20 14:34 body burning General Stated Complaint: Diabetes MACARENA: 2 Review of Systems Constitutional Constitutional: Denies fatigue, Denies fever(s) and Denies headache(s) Eyes Eyes: Denies change in vision ENT Ears, Nose, Mouth, and Throat: Denies headache(s) and Denies neck pain Cardiovascular Cardiovascular: Denies chest pain and Denies dyspnea Respiratory Respiratory: Denies cough and Denies dyspnea Gastrointestinal Gastrointestinal: Denies abdominal pain, Denies nausea and Denies vomiting Genitourinary Genitourinary: Denies dysuria Musculoskeletal Musculoskeletal: Denies back pain and Denies neck pain Integumentary/Breasts Skin/Breast: Denies rash Neurologic Neurologic: Denies headache(s) and Reports weakness (Generalized) Endocrine Endocrine: Denies fatigue [facility] Medical History (Updated 12/24/20 @ 16:07 by FRANCES Valles) Bipolar disease, chronic Diabetes mellitus Diverticulosis History of colon cancer Hyperlipidemia Lung nodule Proteinuria Renal insufficiency Schizophrenia Tobacco abuse Surgical History Cholecystectomy Colectomy (~2001) right hemicolectomy Colonoscopy - MAC EGD - MAC Hernia Repair, Incisional Social History Smoking/Tobacco Use Status: Current every day Tobacco Type: cigarettes Smoking risk assessment performed?: Yes Alcohol Intake: former Drug use: Never Substance use type: does not use Do you feel safe at home: Yes Do you feel safe in your relationship?: Yes Exam Const General: cooperative, healthy appearing, comfortable and no acute distress Orientation: alert, awake, oriented to person, oriented to place and confused (2020, unsure of exact date) [facility] Head: normal to inspection, normocephalic and atraumatic Mouth: moist mucous membranes Eyes General: appearance normal, both eyes and all related structures Alignment and Position: alignment normal Periorbital: periorbital findings normal Eyelids: eyelids normal Conjunctivae: conjunctivae normal Sclera: sclerae normal Cornea: corneas normal Pupils: PERRL EOM: EOM intact bilaterally Direct ophthalmoscopy: normal light reflex Neck Neck: normal visual inspection, full ROM, no meningeal signs, trachea midline, supple and nontender Resp Effort & Inspection: normal respiratory effort and able to speak in complete sentences Auscultation: clear to auscultation bilaterally Cardio Rate: regular rate Rhythm: regular rhythm GI Palpation: soft, not firm, no guarding and nontender Back/Spine/Pelvis Back: No back tenderness Skin General skin exam: no rashes or lesions noted Neuro General: patient alert, patient awake, moves all extremities and no focal motor deficits Cognition: normal cognition Speech: speech normal Gait: normal gait Motor: muscle tone normal throughout Sensory Exam: no sensory deficits noted Extrem General: normal to inspection, full ROM, capillary refill normal and no pedal edema Psych Appearance: grossly normal Mental Status: mental status grossly normal Course Vital Signs Vital signs: Vital Signs Temperature 36.8 C 12/24/20 13:15 Pulse 103 H 12/24/20 13:15 Blood Pressure 135/72 12/24/20 13:15 Pulse Oximetry 97 12/24/20 13:15 Temperature 36.8 C 12/24/20 13:15 Temperature Source Skin 12/24/20 13:15 Pulse 94 H 12/24/20 14:00 Pulse 93 H 12/24/20 14:01 Respiratory Rate 38 H 12/24/20 14:01 Blood Pressure 131/73 12/24/20 14:00 Blood Pressure Mean 88 12/24/20 14:00 Pulse Oximetry 100 12/24/20 14:01 Oxygen Delivery Method Room Air 12/24/20 13:15 Oxygen Flow Rate 0 12/24/20 13:15 Lab/Test Results Lab/Test Results: Laboratory Tests Range/Units 12/24/20 13:25 WBC (4.4-10.8) 10^3/uL 6.18 RBC (3.93-5.22) 10^6/uL 3.66 L Hgb (11.2-15.7) g/dL 12.1 Hct (36.0-46.0) % 37.2 MCV (80-95) fL 101.6 H MCH (27.0-33.0) pg 33.1 H MCHC (32.0-36.0) % 32.5 RDW (11.7-14.6) % 13.0 Plt Count (130-400) 10^3/uL 204 MPV (8.0-11.0) fL 10.6 Immature Gran % 0.5 Neutrophils % 79.6 Lymphocytes % 13.8 Monocytes % 4.5 Eosinophils % 1.1 Basophils % 0.5 Nucleated RBC % % 0 Absolute Neutrophils (1.2-6.7) 10^3/uL 4.92 Absolute Lymphocytes (1.2-3.4) 10^3/uL 0.85 L Absolute Monocytes (0.1-0.8) 10^3/uL 0.28 Absolute Eosinophils (0.0-0.7) 10^3/uL 0.07 Absolute Basophils (0.0-0.2) 10^3/uL 0.03
[2020-12-24 14:07] LABS: INR 0.9 (0.9-1.1); PTT Activated 22.4 sec (21.0-27.5); Prothrombin Time 9.5 sec (9.3-11.0)
[2020-12-24 14:15] LABS: ALT 24 U/L (14-59); AST 19 U/L (15-37); Albumin 3.4 g/dL (3.4-5.0); Alkaline Phosphatase 159 U/L (46-116); Anion Gap 13.5 mmol/L (3-11); BUN 33 mg/dL (7-18); Bilirubin, Total 0.2 mg/dL (0.2-1.0); CO2 20.5 mmol/L (21.0-32.0); Calcium 8.8 mg/dL (8.5-10.1); Chloride 106 mmol/L (98-107); Estimated GFR 24.29 (mL/min/1.73m2); Glucose 164 mg/dL (74-106); Potassium 4.1 mmol/L (3.5-5.1); Sodium 140 mmol/L (136-145); Total Protein 7.3 g/dL (6.4-8.2)
[2020-12-24 14:18] LABS: Troponin I < 0.05 ng/mL (<0.06)
[2020-12-24 14:22] LABS: Creatine Kinase 74 U/L (26-192); Magnesium 2.3 mg/dL (1.8-2.4); TSH (W/Ref FT4) 1.41 uIU/mL (0.36-3.74)
[2020-12-24] MEDS: Normal Saline 1,000 ML 125 ML IV (15:10)
[2020-12-24] MEDS: Dextrose 50%-Water 25 GM/50 ML SYR IVP (15:10)
[2020-12-24 15:51] LABS: Bilirubin Negative (Negative); Blood Negative (Negative); Clarity Clear (Clear); Glucose 100 mg/dL (Negative); Ketones Negative (Negative); Leukocyte Esterase Negative (Negative); Nitrite Negative (Negative); Urobilinogen 0.2 EU/dL (Up TO 0.2); pH 5.5 (5-8)
[2020-12-24 16:07] LABS: Epithelial Cells Negative HPF (Negative); Other Cells Negative (Negative); RBC Negative HPF (0-2)
[2020-12-24 16:08] LABS: Bacteria Few HPF (Negative); C & S Indicated? No; Casts Negative LPF (Negative); Crystals Negative HPF (Negative); Mucus Negative (Negative)
--- NOTE | 2020-12-24 16:15 | RT.EKG_ITS ---
APPROVED REPORT Exam: Resting ECG Patient Location: E HR:92 bpm ECG Measurements Heart Rate 92 AXIS TN 179 P 59 QRSd 114 QRS -63 QT 393 T 100 QTc 487 Conclusion Sinus rhythm...normal P axis, V-rate 60- 99 LVH with secondary repolarization abnormality...multi-LVH criteria, abnrm ST-T ST elevation secondary to LVH...Multiple VCG criteria sinus rhythm at 92, left axis, TE c/w LVH, no major change from prior, non-diagnostic EKG
[2020-12-24 16:51] LABS: Troponin I < 0.05 ng/mL (<0.06)
--- NOTE | 2020-12-24 19:23 | NUR.NOTE ---
Nursing Note: Pt dressing self. Unable to get ahole of pt's friends phone numbers she gave us.
--- NOTE | 2020-12-24 19:33 | NUR.NOTE ---
Nursing Note: referal to see her primary for hypoglycemia by 12/25/20
== END 2020-12-24 19:40 | disposition left against medical advice (07) ==
PROVIDERS: Physician Assistant; Emergency Provider Student in an Organized Health Care Education/Training Program; PCP Family Medicine
DX: E11.649 Type 2 diabetes mellitus with hypoglycemia without coma (principal); Z79.4 Long term (current) use of insulin; Z53.29 Procedure and treatment not carried out because of patient's decision for other reasons
CPT/HCPCS: 36416; 80053; 82550; 82962; 93005; 96361; 96374; 99285; 70450; 71045; 81003; 81015; 83735; 84443; 84484; 85025; 85610; 85730; 93010; 99284

== ENCOUNTER 2020-12-25 06:05 | Emergency (ER) | payer MEDICARE, MEDICAID, SELFPAY ==
[2020-12-25 06:05] VITALS: BP 136/70; PULSE 96; RESP 20; TEMP 37.3; O2SAT 98
[2020-12-25 06:11] VITALS: RESP 18
--- NOTE | 2020-12-25 06:14 | ED.GENADUL_ITS ---
Discharge Plan Disposition Patient Disposition: HOME Condition: Stable Discharge Details Clinical Impression: Hypoglycemia Primary Care Provider: Ean Dhillon ED Provider: Jacobo Dugan Home Meds and New Rx's Prescriptions: Continued simvastatin 10 MG tablet 10 mg PO DAILY Qty: 1 RF: 0 aspirin 81 MG tablet,chewable 81 mg PO DAILY RF: 0 cholecalciferol (vitamin D3) 1,000 UNITS tablet 1,000 units PO DAILY RF: 0 quetiapine [Seroquel] 300 MG tablet 300 mg PO DAILY RF: 0 Basaglar KwikPen U-100 Insulin 100 unit/mL (3 mL) insulin pen 12 unit SUBCUT DAILY RF: 0 Nicotrol 10 mg Cartridge 1 inh INHALATION 4-6XD PRNRF: 0 gabapentin 100 mg Capsule 100 mg PO TID PRNRF: 0 polyethylene glycol 3350 [Miralax] 17 gram/dose Powder 17 g PO DAILY RF: 0 Vraylar 1.5 mg Capsule 1.5 mg PO DAILY RF: 0 No Action hydroxyzine HCl 25 mg tablet 25 mg PO BID PRNRF: 0 calcitriol 0.25 mcg capsule 0.25 mcg PO .M,W,F RF: 0 glipizide 5 mg tablet 5 mg PO DAILY RF: 0 quetiapine [Seroquel] 400 mg tablet 400 mg PO .QHS RF: 0 Discharge Instructions Additional Instructions: Follow up with your primary care provider as scheduled try to eat meals with protein and not just your glucose packs if you feel more ill, have worsening weakness or difficulty breathing return to the emergency department We will ask our care management team to arrange a follow-up for you in primary care clinic at the end of the week Medical Decision Making <Magan Chapa MD - Last Filed: 12/25/20 06:45> 75 yo female with hx of diabetes, schizophrenia, who was seen yesterday for hypoglycemia and did not want to be observed in the hospital which she has had to do several times in the past month or so for not taking her medications correctly, stayed up all night last night checking her glucose and it was 60. She had no symptoms but decided to come herer this morning, states she had 4 of her glucose wafers she has overnight nothing else. She is somewhat agitated on arrival intermittently yelling at me without a clear reason for this but is oriented x4 and denies any other symptoms. Glucose on arrival is 92. I suspect part of the issue is she is not eating anything of substance and would benefit from protein intake, given normal sugar here without complaints will observe and see if she is willing to eat a meal. Given lack of fever, weakness or other symptoms do not feel other labs indicated. EMS was concerned that patient may need more support at home, will have her meet with care management as well when they arrive patient eating without complaints continues to have normal glucose level. Will sign out to oncoming provider pending care management evaluation Differential Diagnosis Differential Diagnosis: lack of food, anxiety, medical noncompliance <Jacobo Dugan MD - Last Filed: 12/25/20 08:57> Received signout from Dr. Chapa. Please see his note regarding details of the initial presentation, exam, plan of care. Patient 8 a generous morning meal, states she felt improved. She was evaluated by care management. Pt stated she has meals on wheels at home, has been able to take care of her house work. She is improved after meal, stable for discharge to home. We will arrange a short-term follow-up for her in clinic for recheck HPI <Magan Chapa MD - Last Filed: 12/25/20 06:45> General Mode of arrival: EMS . Date/Time Provider Initiated Documentation: 12/25/20 06:06 . Limitations to Documentation: no limitations . Information obtained by: patient . History of Present Illness 75 year old F presents to the emergency department with the chief complaint of low blood sugar, described as mild, No relieving factors improve symptom(s), No exacerbating factors reported . Patient did receive the following treatments prior to arrival, none Related Data Home Medications Medication Instructions Recorded Confirmed simvastatin 10 mg PO DAILY #1 tab-cap 04/15/14 12/25/20 aspirin 81 mg PO DAILY 08/10/15 12/25/20 cholecalciferol (vitamin D3) 1,000 units PO DAILY 08/10/15 12/25/20 quetiapine [Seroquel] 300 mg PO DAILY 05/05/16 12/25/20 Nicotrol 1 inh INHALATION 4-6XD PRN 10/31/19 12/25/20 gabapentin 100 mg PO TID PRN 10/31/19 12/25/20 polyethylene glycol 3350 [Miralax] 17 g PO DAILY 10/31/19 12/25/20 Vraylar 1.5 mg PO DAILY 11/23/19 12/25/20 Emmanuelle Degroot U-100 Insulin 12 unit SUBCUT DAILY 12/25/20 12/25/20 calcitriol 0.25 mcg PO .M,W,F 12/25/20 12/25/20 glipizide 5 mg PO DAILY 12/25/20 12/25/20 hydroxyzine HCl 25 mg PO BID PRN 12/25/20 12/25/20 quetiapine [Seroquel] 400 mg PO .QHS 12/25/20 12/25/20 Allergies Allergy/AdvReac Type Severity Reaction Status Date / Time Sulfa (Sulfonamide Allergy Unknown Not Unverified 12/24/20 14:34 Antibiotics) recalled Contrast Dye Allergy Unknown feeling of Uncoded 12/24/20 14:34 body burning General Stated Complaint: GenMedical MACARENA: 4 Review of Systems <Magan Chapa MD - Last Filed: 12/25/20 06:45> All systems reviewed & are unremarkable except as noted in HPI and below Constitutional Constitutional: Denies chills, Denies fever(s) and Denies weakness Cardiovascular Cardiovascular: Denies chest pain and Denies dyspnea Respiratory Respiratory: Denies cough and Denies dyspnea Gastrointestinal Gastrointestinal: Denies abdominal pain, Denies nausea and Denies vomiting Musculoskeletal Musculoskeletal: Denies joint swelling Neurologic Neurologic: Denies weakness Psychiatric Psychiatric: Denies depression PFS <Magan Chapa MD - Last Filed: 12/25/20 06:45> Medical History (Updated 12/25/20 @ 06:28 by Magan Chapa MD) Bipolar disease, chronic Diabetes mellitus Diverticulosis History of colon cancer Hyperlipidemia Lung nodule Proteinuria Renal insufficiency Schizophrenia Tobacco abuse Surgical History Cholecystectomy Colectomy (~2001) right hemicolectomy Colonoscopy - MAC EGD - MAC Hernia Repair, Incisional Social History Smoking/Tobacco Use Status: Current every day Tobacco Type: cigarettes Smoking risk assessment performed?: Yes Alcohol Intake: current Drug use: Never Substance use type: does not use Do you feel safe at home: Yes Do you feel safe in your relationship?: Yes Exam <Magan Chapa MD - Last Filed: 12/25/20 06:45> Const General: no acute distress Orientation: alert HENMT Head: normal to inspection Ears: external ears normal General nose exam: external nose normal Mouth: moist mucous membranes Eyes General: appearance normal, both eyes and all related structures Neck Neck: normal visual inspection Resp Effort & Inspection: normal respiratory effort and able to speak in complete sentences Cardio Rate: regular rate Skin General skin exam: no rashes or lesions noted Neuro General: patient alert and patient oriented x3 Extrem General: normal to inspection Psych Mental Status: mental status grossly normal Course <Magan Chapa MD - Last Filed: 12/25/20 06:45> Vital Signs Vital signs: Vital Signs Temperature 37.3 C 12/25/20 06:05 Pulse 96 H 12/25/20 06:05 Respiratory Rate 20 12/25/20 06:05 Blood Pressure 136/70 12/25/20 06:05 Pulse Oximetry 98 12/25/20 06:05 Temperature 37.3 C 12/25/20 06:05 Temperature Source Temporal Artery Scan 12/25/20 06:05 Pulse 96 H 12/25/20 06:05 Respiratory Rate 18 12/25/20 06:11 Respiratory Effort Non-Labored 12/25/20 06:11 Respiratory Depth Normal 12/25/20 06:11 Respiratory Pattern Normal 12/25/20 06:11 Blood Pressure 136/70 12/25/20 06:05 Blood Pressure Position Supine 12/25/20 06:05 Pulse Oximetry 98 12/25/20 06:05 Oxygen Delivery Method Room Air 12/25/20 06:05 Oxygen Flow Rate 0 12/25/20 06:05 Pain Level 0 12/25/20 06:05 Sign Out <Magan Chapa MD - Last Filed: 12/25/20 06:45> Sign Out Data: Sign Out Comment: multiple recent visits/admissions for hypoglycemia that was felt likely due to medication noncompliance, ems states son recently passed and don't feel she has support at home, glucose here normal and has no complaints, pending care management evaluation Last updated by Magan Chapa MD at 12/25/20 06:35
--- NOTE | 2020-12-25 07:26 | NUR.NOTE ---
drinking OJ and water.Nursing Note:
[2020-12-25 09:15] VITALS: BP 148/90; PULSE 97; RESP 20; TEMP 36.7; O2SAT 97
[2020-12-25 09:25] VITALS: BP 148/90; PULSE 97; RESP 20; TEMP 36.7; O2SAT 97
--- NOTE | 2020-12-25 10:11 | CMPROGNOTE_ITS ---
- If Service Date Differs Date of service: 12/25/20 Time of Service: 10:11 Care Management Progress Note Delmi presents in the ED for the second time in two days for hypoglycemia. CM meets with Delmi at the request of Dr. Dugan, ED provider, to do a needs assessment. Delmi states her son, Abran, two weeks ago, so she is now living alone. She does not currently have any in-home services and says I am capable of cleaning my own apartment and of taking care of myself. Delmi repo rts she gets Meals on Wheels but does not always eat the food. DANIELLE contacts Shwetha, the chronic group care worker at [facility], and learns that Delmi has not seen her primary care physician since July. An appointment is scheduled on Thursday, December 28, 2020 at 9:45 am for Delmi to see FRANCES Gustafson. Delmi will also meet with Joselin Mackay, [employer], on that day. DANIELLE contacts [facility] and arranges for them to pick Delmi up on Thursday and take her to her appointment at [facility].
== END 2020-12-25 09:24 | disposition home or self-care (01) ==
PROVIDERS: Emergency Provider Emergency Medicine; PCP Family Medicine
DX: E11.649 Type 2 diabetes mellitus with hypoglycemia without coma (principal)
CPT/HCPCS: 36416; 82962; 99283

== ENCOUNTER 2021-02-13 13:46 | Emergency (ER) | payer MEDICARE, MEDICAID, SELFPAY ==
[2021-02-13 13:52] VITALS: BP 140/68; PULSE 94; RESP 18; TEMP 36.4; O2SAT 98
--- NOTE | 2021-02-13 14:00 | ED.GENADUL_ITS ---
Discharge Plan Disposition Patient Disposition: HOME Condition: Stable Discharge Details Clinical Impression: Leg pain Primary Care Provider: Ean Dhillon ED Provider: Magan Chapa Home Meds and New Rx's Prescriptions: Continued simvastatin 10 MG tablet 10 mg PO DAILY Qty: 1 RF: 0 aspirin 81 MG tablet,chewable 81 mg PO DAILY RF: 0 cholecalciferol (vitamin D3) 1,000 UNITS tablet 1,000 units PO DAILY RF: 0 quetiapine [Seroquel] 300 MG tablet 300 mg PO DAILY RF: 0 hydroxyzine HCl 25 mg tablet 25 mg PO BID PRNRF: 0 calcitriol 0.25 mcg capsule 0.25 mcg PO .M,W,F RF: 0 glipizide 5 mg tablet 5 mg PO DAILY RF: 0 quetiapine [Seroquel] 400 mg tablet 400 mg PO .QHS RF: 0 Basaglar KwikPen U-100 Insulin 100 unit/mL (3 mL) insulin pen 12 unit SUBCUT DAILY RF: 0 Nicotrol 10 mg Cartridge 1 inh INHALATION 4-6XD PRNRF: 0 gabapentin 100 mg Capsule 100 mg PO TID PRNRF: 0 polyethylene glycol 3350 [Miralax] 17 gram/dose Powder 17 g PO DAILY RF: 0 Vraylar 1.5 mg Capsule 1.5 mg PO DAILY RF: 0 Discharge Instructions Instructions: Leg Pain (ED) Additional Instructions: follow up with your primary care provider within 1-2 weeks if pain continues if you feel more ill, have fevers or severe worsening of pain return to the emergency department Medical Decision Making 75 yo female with hx of DM, schizophrenia, ckd, who comes in with bilateral hip pain, which she states started months ago when she slipped on some stairs. Did n ot get seen at that time but has had bilateral hip pain left more than right since so came here. She is ambulating without a limp. Denies any new falls or trauma. Normal sensation and cap refill in the feet, No tenderness in the feet, ankle, tib/fib, knee, or femur. HAs mild lateral hip tenderness bilaterally. No fevers, no erythema, no warmth. HAs full rom of the ankles, knees and hips. No back tenderness. No urinary symptoms. Suspect arthritis less likely fracture or contusion given how long ago fall was will xray to evaluate for possible fracture/dislocation though unlikely given she can ambulate. No findings to suggest septic joint. No swelling of the leg and no calf tenderness so doubt DVT. xray negative on my read and is ambulating without any limp or signs of pain. Will d/c and advised to follow up with her pcp and return precautions given Differential Diagnosis Differential Diagnosis: contusion, chronic pain, fracture HPI General Mode of arrival: ambulatory . Date/Time Provider Initiated Documentation: 02/13/21 13:47 . Limitations to Documentation: no limitations . Information obtained by: patient . History of Present Illness 75 year old F presents to the emergency department with the chief complaint of leg pain, described as moderate, Patient started experiencing this month(s) (2) and it has been constant. No relieving factors improve symptom(s), No exacerbating factors reported . Patient notes no other symptoms.. Patient did receive the following treatments prior to arrival, none Related Data Home Medications Medication Instructions Recorded Confirmed simvastatin 10 mg PO DAILY #1 tab-cap 04/15/14 02/13/21 aspirin 81 mg PO DAILY 08/10/15 02/13/21 cholecalciferol (vitamin D3) 1,000 units PO DAILY 08/10/15 02/13/21 quetiapine [Seroquel] 300 mg PO DAILY 05/05/16 02/13/21 Nicotrol 1 inh INHALATION 4-6XD PRN 10/31/19 02/13/21 gabapentin 100 mg PO TID PRN 10/31/19 02/13/21 polyethylene glycol 3350 [Miralax] 17 g PO DAILY 10/31/19 02/13/21 Vraylar 1.5 mg PO DAILY 11/23/19 02/13/21 Basaglar KwikPen U-100 Insulin 12 unit SUBCUT DAILY 12/25/20 02/13/21 calcitriol 0.25 mcg PO .M,W,F 12/25/20 02/13/21 glipizide 5 mg PO DAILY 12/25/20 02/13/21 hydroxyzine HCl 25 mg PO BID PRN 12/25/20 02/13/21 quetiapine [Seroquel] 400 mg PO .QHS 12/25/20 02/13/21 Allergies Allergy/AdvReac Type Severity Reaction Status Date / Time Sulfa (Sulfonamide Allergy Unknown Not Unverified 02/13/21 13:53 Antibiotics) recalled Contrast Dye Allergy Unknown feeling of Uncoded 02/13/21 13:53 body burning General Stated Complaint: Orthopedic MACARENA: 3 Review of Systems All systems reviewed & are unremarkable except as noted in HPI and below Constitutional Constitutional: Denies chills, Denies fever(s) and Denies weakness Cardiovascular Cardiovascular: Denies chest pain and Denies dyspnea Respiratory Respiratory: Denies cough and Denies dyspnea Gastrointestinal Gastrointestinal: Denies abdominal pain, Denies nausea and Denies vomiting Neurologic Neurologic: Denies weakness [facility] Medical History (Updated 02/13/21 @ 14:26 by Magan Chapa MD) Bipolar disease, chronic Diabetes mellitus Diverticulosis History of colon cancer Hyperlipidemia Lung nodule Proteinuria Renal insufficiency Schizophrenia Tobacco abuse Surgical History Cholecystectomy Colectomy (~2001) right hemicolectomy Colonoscopy - MAC EGD - MAC Hernia Repair, Incisional Social History Smoking/Tobacco Use Status: Current every day Tobacco Type: cigarettes Smoking risk assessment performed?: Yes Alcohol Intake: current Drug use: Never Substance use type: does not use Do you feel safe at home: Yes Do you feel safe in your relationship?: Yes Exam Const General: no acute distress Orientation: alert HENMT Head: normal to inspection Ears: external ears normal General nose exam: external nose normal Mouth: moist mucous membranes Eyes General: appearance normal, both eyes and all related structures Neck Neck: normal visual inspection Resp Effort & Inspection: normal respiratory effort and able to speak in complete sentences Cardio Rate: regular rate Skin General skin exam: no rashes or lesions noted Neuro General: patient alert and patient oriented x3 Extrem General: normal to inspection Psych Mental Status: mental status grossly normal Course Vital Signs Vital signs: Vital Signs Temperature 36.4 C L 02/13/21 13:52 Pulse 94 H 02/13/21 13:52 Respiratory Rate 18 02/13/21 13:52 Blood Pressure 140/68 02/13/21 13:52 Pulse Oximetry 98 02/13/21 13:52 Temperature 36.4 C L 02/13/21 13:52 Temperature Source Temporal Artery Scan 02/13/21 13:52 Pulse 94 H 02/13/21 13:52 Respiratory Rate 18 02/13/21 13:52 Respiratory Effort Non-Labored 02/13/21 13:54 Blood Pressure 140/68 02/13/21 13:52 Pulse Oximetry 98 02/13/21 13:52 Oxygen Delivery Method Room Air 02/13/21 13:52 Oxygen Flow Rate 0 02/13/21 13:52
--- NOTE | 2021-02-13 14:14 | DI.RAD_ITS ---
Exam(s) XR HIP LT COMPLETE AP PELVIS EXAM: XR HIP LT COMPLETE AP PELVIS CLINICAL HISTORY: pain for weeks. TECHNIQUE: 2D digital imaging was performed. COMPARISON: No exams were available for comparison FINDINGS: BONES: No acute fracture is present. No bony destructive lesion is seen. JOINTS: No dislocation present. SOFT TISSUE: Suture material is seen overlying the right iliac bone. IMPRESSION: No acute or healing fracture or dislocation. DATA REPOSITORY: RADIATION DOSE DELIVERED:
--- NOTE | 2021-02-13 16:08 | NUR.NOTE ---
Nursing Note: Referral faxed to PCP, Dr. Dhillon, for leg pain within 2 weeks. Laure Matos
[2021-02-13 16:22] VITALS: BP 140/68; PULSE 94; RESP 18; TEMP 36.4; O2SAT 98
== END 2021-02-13 14:31 | disposition home or self-care (01) ==
PROVIDERS: Emergency Provider Emergency Medicine; PCP Family Medicine
DX: M25.552 Pain in left hip (principal); M25.551 Pain in right hip
CPT/HCPCS: 99283; 73502; 99282

== ENCOUNTER 2021-02-18 03:11 | Outpatient (CLI) | payer MEDICARE, MEDICAID, SELFPAY ==
--- NOTE | 2021-02-18 | DI.CT_ITS ---
Exam(s) CT LUMBAR SPINE WO EXAM: CT LUMBAR SPINE WO CLINICAL HISTORY: LOW BACK PAIN, M54.5,H/O LUNG CA,C34.90,POST HIP PAIN. TECHNIQUE: Imaging Protocol: Axial computed tomography images with coronal and sagittal reformatted images were created and reviewed COMPARISON: No exams were available for comparison FINDINGS: Bones: The last intervertebral disc space is designated the L5/S1 level for the numbering purpose of this examination. The vertebral body heights are well maintained. Alignment is satisfactory. No spo ndylolysis or spondylolisthesis is present. No fracture or subluxation is seen. Endplate osteophytes are present throughout the lumbar spine. There are no lytic or sclerotic lesions. T12-L1: No disc herniations or bulges are present. No significant central spinal canal or neural for aminal stenosis is present. L1-2: No disc herniations or bulges are present. No significant central spinal canal or neural sascha inal stenosis is present. L2-3: No disc herniations or bulges are present. No significant central spinal canal or neural sascha inal stenosis is present. L3-4: There is a mild diffuse disc bulge. No significant central spinal canal or left neural foramin al stenosis is seen. A component of the disc and endplate extend laterally on the right. This causes [id number] right neural foraminal stenosis. L4-5: There is disc space narrowing. There is a mild diffuse disc bulge. This in conjunction with the degenerative facet arthropathy causes mild to moderate central spinal canal stenosis. There is mo derate bilateral neural foraminal stenosis. Moderate degenerative changes of the facets are present. L5-S1: Moderately severe facet hypertrophy are present. There is a mild diffuse disc bulge. This, in conjunction with facet arthropathy causes moderately severe central spinal canal stenosis. There is moderate right and severe left neural foraminal stenosis. Soft Tissues: The visualized SI joints and sacrum are will maintained. The paraspinal soft tissues a re unremarkable. IMPRESSION: 1. Multilevel degenerative changes in the lumbar spine. 2. Multilevel central spinal canal and neural foraminal stenosis is present. RADIATION DOSE DELIVERED: 439.09mGy.cm Total DLP 439.09mGy.cm Total DLP DATA REPOSITORY: All CT scans at this facility are submitted to the National Radiology Data Registry (NRDR) Dose Index Registry (DIR) with the [employer] ([employer]). RADIATION OPTIMIZATION: All CT scans at this facility use at least one of these dose optimization te chniques: automated exposure control; mA and/or kV adjustment per patient size (includes targeted exa ms where dose is matched to clinical indication); or iterative reconstruction.
== END 2021-02-18 03:31 ==
PROVIDERS: PCP Family Medicine; Visit Provider Family Medicine
DX: M54.5 Low back pain (principal); M51.37 Other intervertebral disc degeneration, lumbosacral region; M48.07 Spinal stenosis, lumbosacral region; Z85.118 Personal history of other malignant neoplasm of bronchus and lung
CPT/HCPCS: 72131

== ENCOUNTER 2021-02-18 03:12 | Outpatient (CLI) | payer MEDICARE, MEDICAID, SELFPAY ==
--- NOTE | 2021-02-18 | DI.CT_ITS ---
Exam(s) CT CHEST WO EXAM: CT CHEST WO CLINICAL HISTORY: H/O LUNG CA,S/P TREATMENT,? STATUS OF DISEASE,C34.11. TECHNIQUE: Imaging protocol: Axial computed tomography images were obtained and coronal and sagittal reformatted images were created and reviewed. COMPARISON: CT CT CHEST WO from 07/09/2020 FINDINGS: The examination is limited due to patient motion artifact. Tracheobronchial tree: Patent where visualized. Pulmonary parenchyma: There has been no change in appearance of the left upper lobe pulmonary mass or surrounding interstitial disease. No new pulmonary nodules are identified. Moderate centrilobular emphysema. Mediastinum and Emma: No dominant adenopathy or fluid collection. Stable mediastinum. Pleura: No effusion or pneumothorax. Heart: The heart is not dilated. No coronary artery calcifications are seen. No pericardial effusion. Aorta: Thoracic aorta non-dilated. Mild atherosclerosis. Upper abdomen: Status post cholecystectomy. Multiple bilateral renal cysts are noted. Lymph nodes: Within normal limits. Soft tissues: Unremarkable. Thyroid gland: There again seen bilateral thyroid nodules. Bones:No suspicious lytic or sclerotic lesions. IMPRESSION: Stable left upper lobe lung carcinoma. RADIATION DOSE DELIVERED: 361.54mGy.cm Total DLP 361.54mGy.cm Total DLP DATA REPOSITORY: All CT scans at this facility are submitted to the National Radiology Data Registry (NRDR) Dose Index Registry (DIR) with the [employer] ([employer]). RADIATION OPTIMIZATION: All CT scans at this facility use at least one of these dose optimization te chniques: automated exposure control; mA and/or kV adjustment per patient size (includes targeted exa ms where dose is matched to clinical indication); or iterative reconstruction.
== END 2021-02-18 03:32 ==
PROVIDERS: PCP Family Medicine; Visit Provider Nurse Practitioner Family
DX: C34.11 Malignant neoplasm of upper lobe, right bronchus or lung (principal); J43.2 Centrilobular emphysema; M54.5 Low back pain; M51.37 Other intervertebral disc degeneration, lumbosacral region; M48.07 Spinal stenosis, lumbosacral region; Z85.118 Personal history of other malignant neoplasm of bronchus and lung
CPT/HCPCS: 71250; 72131

== ENCOUNTER 2021-03-08 09:14 | Outpatient (REF) | payer MEDICARE, MEDICAID, SELFPAY ==
[2021-03-09 09:19] LABS: Abs Immature Grans 0.01 10^3/uL (0.0-0.06); Absolute Basophil Count 0.04 10^3/uL (0.0-0.2); Absolute Eosinophil Count 0.12 10^3/uL (0.0-0.7); Absolute Lymphocyte Count 1.54 10^3/uL (1.2-3.4); Absolute Monocyte Count 0.45 10^3/uL (0.1-0.8); Absolute Neutrophil Count 5.69 10^3/uL (1.2-6.7); Basophils % 0.5; Eosinophils % 1.5; HCT 37.9 % (36.0-46.0); HGB 12.3 g/dL (11.2-15.7); Immature Grans % 0.1; Lymphocytes % 19.6; MCH 32.6 pg (27.0-33.0); MCHC 32.5 % (32.0-36.0); MCV 100.5 fL (80-95); MPV 11.5 fL (8.0-11.0); Monocytes % 5.7; Neutrophils % 72.6; Nucleated RBC 0 %; Platelet Count 266 10^3/uL (130-400); RBC 3.77 10^6/uL (3.93-5.22); RDW-SD 47.9 fL; WBC 7.85 10^3/uL (4.4-10.8)
[2021-03-09 09:29] LABS: Anion Gap 10.9 mmol/L (3-11); BUN 39 mg/dL (7-18); CO2 24.1 mmol/L (21.0-32.0); CREATININE 1.9 mg/dL (0.55-1.02); Calcium 8.5 mg/dL (8.5-10.1); Chloride 104 mmol/L (98-107); Estimated GFR 25.77 (mL/min/1.73m2); Glucose 430 mg/dL (74-106); Sodium 139 mmol/L (136-145)
== END 2021-03-08 09:15 | disposition home or self-care (01) ==
LOC: LBN 09:14
PROVIDERS: PCP Family Medicine; Visit Provider Physician Assistant Medical
DX: N18.4 Chronic kidney disease, stage 4 (severe) (principal); E11.9 Type 2 diabetes mellitus without complications; Z79.4 Long term (current) use of insulin; Z86.2 Personal history of diseases of the blood and blood-forming organs and certain disorders involving the immune mechanism
CPT/HCPCS: 80048; 85025

== ENCOUNTER 2021-06-25 13:50 | Inpatient (IN) | payer MEDICARE, MEDICAID, SELFPAY ==
[2021-06-25] VITALS (39 sets, daily range): BP systolic 122–159; BP diastolic 63–88; PULSE 81–105; RESP 16–38; TEMP 36–37.4; O2SAT 80–100
--- NOTE | 2021-06-25 14:15 | DI.RAD_ITS ---
Exam(s) XR PELVIS AP EXAM: XR PELVIS AP CLINICAL HISTORY: Fall, left hip pain. TECHNIQUE: 2D digital imaging was performed. COMPARISON: No exams were available for comparison FINDINGS: Single AP view of the pelvis reveals a nondisplaced transverse fracture line in the left femoral neck . No other pelvic fractures identified. IMPRESSION: DATA REPOSITORY: RADIATION DOSE DELIVERED:
--- NOTE | 2021-06-25 14:15 | DI.RAD_ITS ---
Exam(s) XR FEMUR LT EXAM: XR FEMUR LT CLINICAL HISTORY: Fall, Left hip pain. TECHNIQUE: 2D digital imaging was performed. COMPARISON: No exams were available for comparison FINDINGS: There is a subcapital fracture of the left femoral neck. No fractures in the ipsilateral female ower below the hip level. IMPRESSION: Subcapital fracture of the left femoral neck. DATA REPOSITORY: RADIATION DOSE DELIVERED:
--- NOTE | 2021-06-25 14:23 | ED.GENADUL_ITS ---
Discharge Plan Discharge Details Chief Complaint: Trauma Admit Date/Time: 06/25/21 16:43 Admit Provider: Irina Coates Attending Provider: Irina Coates Primary Care Provider: Ean Dhillon ED Provider: Shreya Aquino Discharge Data Discharge Date/Time-TO BE ENTERED AT DEPARTURE: 06/25/21 17:59 Medical Decision Making 76-year-old female presents to the ER with chief complaint of left hip pain status post a fall last night. Patient states that she was pulling a plug out of the wall landing on her left side. She denies hitting her head or any loss of consciousness denies any neck or back pain. She reports that she took 2 gabapentin last night. Denies taking anything prior to arrival. She lives alone. Is a smoker. Does have a past medical history of bipolar disease, diabetes, renal insufficiency, schizophrenia diverticulosis and colon cancer. She does have left groin pain and left lower extremity is externally rotated. Denies any knee or ankle pain. Does have dorsal pedal pulses intact distal circulation sensation movement intact to her foot. Denies any other pain or injuries. At this time x-ray hip series ordered. Vital signs are stable. 97% on room air. X-rays show a subcapital fracture of the left femoral neck. 1631: Spoke with Dr. Pickering regarding patient. He recommends admit to medicine and plan for surgery tomorrow. 1632: Hospitalist marie. Spoke with Dr. Maynard who agrees to accept patient for admission. [place] ordered and chest x-ray ordered. HPI General Mode of arrival: EMS . Date/Time Provider Initiated Documentation: 06/25/21 14:14 . Limitations to Documentation: no limitations . Information obtained by: patient and RN notes reviewed . HPI Narrative: 76-year-old female presents to the ER with chief complaint of left hip pain status post a fall last night. Patient states that she was pulling a plug out of the wall landing on her left side. She denies hitting her head or any loss of consciousness denies any neck or back pain. She reports that she took 2 gabapentin last night. Denies taking anything prior to arrival. She lives alone. Is a smoker. Does have a past medical history of bipolar disease, diabetes, renal insufficiency, schizophrenia diverticulosis and colon cancer. She does have left groin pain and left lower extremity is externally rotated. Denies any knee or ankle pain. Does have dorsal pedal pulses intact distal circulation sensation movement intact to her foot. Denies any other pain or injuries. Related Data Home Medications Medication Instructions Recorded Confirmed simvastatin 10 mg PO DAILY #1 tab-cap 04/15/14 06/25/21 aspirin 81 mg PO DAILY 08/10/15 06/25/21 cholecalciferol (vitamin D3) 1,000 units PO DAILY 08/10/15 06/25/21 quetiapine [Seroquel] 300 mg PO DAILY 05/05/16 06/25/21 Nicotrol 1 inh INHALATION 4-6XD PRN 10/31/19 06/25/21 gabapentin 100 mg PO TID PRN 10/31/19 06/25/21 polyethylene glycol 3350 [Miralax] 17 g PO DAILY 10/31/19 06/25/21 Vraylar 1.5 mg PO DAILY 11/23/19 06/25/21 Basaglar KwikPen U-100 Insulin 8 unit SUBCUT DAILY 12/25/20 06/25/21 calcitriol 0.25 mcg PO .M,W,F 12/25/20 06/25/21 glipizide 5 mg PO DAILY 12/25/20 06/25/21 hydroxyzine HCl 25 mg PO BID PRN 12/25/20 06/25/21 quetiapine [Seroquel] 400 mg PO .QHS 12/25/20 06/25/21 Allergies Allergy/AdvReac Type Severity Reaction Status Date / Time Sulfa (Sulfonamide Allergy Unknown Not Unverified 06/25/21 15:41 Antibiotics) recalled Contrast Dye Allergy Unknown feeling of Uncoded 06/25/21 15:41 body burning General Stated Complaint: Trauma MACARENA: 3 Review of Systems All systems reviewed & are unremarkable except as noted in HPI and below Constitutional Constitutional: Denies headache(s) ENT Ears, Nose, Mouth, and Throat: Denies headache(s) and Denies neck pain Musculoskeletal Musculoskeletal: Reports as per HPI, Reports abnormal gait, Denies back pain, Reports arthralgias (Left hip, thigh), Reports limited range of motion, Reports loss of height, Denies neck pain and Denies numbness Neurologic Neurologic: Reports abnormal gait, Denies headache(s) and Denies numbness PFSH Medical History (Updated 06/26/21 @ 08:10 by Aneesh Pickering MD) Bipolar disease, chronic Diabetes mellitus Diverticulosis History of colon cancer Hyperlipidemia Lung nodule Proteinuria Renal insufficiency Schizophrenia Tobacco abuse Surgical History Cholecystectomy Colectomy (~2001) right hemicolectomy Colonoscopy - MAC EGD - MAC Hernia Repair, Incisional Social History Smoking/Tobacco Use Status: Current every day Tobacco Type: cigarettes Smoking risk assessment performed?: Yes Alcohol Intake: current Drug use: Never Substance use type: does not use Do you feel safe at home: Yes Do you feel safe in your relationship?: Yes Exam Narrative Exam Narrative: General: Well Developed, Awake and Alert, conversant. Skin: Warm and Dry HEENT: Head: No palpable deformities, Normocephalic Eyes: Pupils PERRLA, EOM's intact. No periorbital eccymosis or step off Ears: Canal patent. Tympanic membranes are clear . No bustamante's sign, no hemptympanum. Nose/Face: Atraumatic. Facial bones nontender to palpation and stable with manipulation. Mouth/Throat: No intraoral trauma. Teeth and mandible are intact. Neck: No midline tenderness, no step off, no deformity to palpation of C-spine. Trachea midline. Chest: No surface trauma. Nontender without crepitus or deformity. Lungs clear to ausculatation bilaterally. Heart: RRR, no rubs, murmurs or gallop. Abdomen: No abrasions, ecchymosis, or surface trauma. Nontender to palpation no guarding, rebound, or rigidity. Pelvis: Tenderness to left groin and hip. Femoral pulses strong and equal Extremities: no surface trauma. Sensation intact. Peripheral pulses intact and equal. Left lower extremity is externally rotated. Neuro: ANO x4, GCS 15, cranial nerves II through XII intact. Motor and sensory exam nonfocal. Reflexes are symmetric. Course Vital Signs Vital signs: Vital Signs Temperature 36.6 C 06/25/21 13:54 Pulse 86 06/25/21 13:54 Respiratory Rate 20 06/25/21 13:54 Pulse Oximetry 99 06/25/21 13:54 Temperature 36.6 C 06/25/21 13:54 Temperature Source Temporal Artery Scan 06/25/21 13:54 Pulse 86 06/25/21 13:54 Respiratory Rate 20 06/25/21 13:54 Blood Pressure Position Supine 06/25/21 13:54 Pulse Oximetry 99 06/25/21 13:54 Pain Level 10 06/25/21 13:54 Comment 06/25/21 13:54
[2021-06-25 16:00] LABS: Abs Immature Grans 0.03 10^3/uL (0.0-0.06); Absolute Basophil Count 0.03 10^3/uL (0.0-0.2); Absolute Eosinophil Count 0.03 10^3/uL (0.0-0.7); Absolute Lymphocyte Count 0.83 10^3/uL (1.2-3.4); Absolute Monocyte Count 0.43 10^3/uL (0.1-0.8); Absolute Neutrophil Count 6.87 10^3/uL (1.2-6.7); Basophils % 0.4; Eosinophils % 0.4; HCT 39.8 % (36.0-46.0); HGB 12.4 g/dL (11.2-15.7); Immature Grans % 0.4; Lymphocytes % 10.1; MCH 32.3 pg (27.0-33.0); MCHC 31.2 % (32.0-36.0); MCV 103.6 fL (80-95); MPV 11.3 fL (8.0-11.0); Monocytes % 5.2; Neutrophils % 83.5; Nucleated RBC 0 %; Platelet Count 211 10^3/uL (130-400); RBC 3.84 10^6/uL (3.93-5.22); RDW 13.3 % (11.7-14.6); RDW-SD 50.7 fL; WBC 8.22 10^3/uL (4.4-10.8)
[2021-06-25 16:05] LABS: ALT 20 U/L (14-59); AST 13 U/L (15-37); Albumin 3.4 g/dL (3.4-5.0); Alkaline Phosphatase 168 U/L (46-116); BUN 33 mg/dL (7-18); Bilirubin, Total 0.2 mg/dL (0.2-1.0); CREATININE 1.8 mg/dL (0.55-1.02); Calcium 8.9 mg/dL (8.5-10.1); Chloride 111 mmol/L (98-107); Estimated GFR 27.36 (mL/min/1.73m2); Glucose 387 mg/dL (74-106); Potassium 4.8 mmol/L (3.5-5.1); Sodium 144 mmol/L (136-145); Total Protein 7.5 g/dL (6.4-8.2)
--- NOTE | 2021-06-25 16:30 | RT.EKG_ITS ---
APPROVED REPORT Exam: Resting ECG Reason for Exam: Hip Fracture Patient Location: E HR:89 bpm ECG Measurements Heart Rate 89 AXIS NM 155 P 77 QRSd 101 QRS -67 QT 361 T 88 QTc 440 Conclusion Sinus rhythm. Left anterior fascicular block...axis(240,-40), init forces inf Probable left ventricular hypertrophy.. No sig change
--- NOTE | 2021-06-25 16:30 | DI.RAD_ITS ---
Exam(s) XR PORTABLE CHEST AP EXAM: XR PORTABLE CHEST AP CLINICAL HISTORY: Fall, Femur Fracture. TECHNIQUE: 2D digital imaging was performed. COMPARISON: CR XR CHEST 1V IN DI DEPT from 12/24/2020 FINDINGS: Heart size is upper normal. The mediastinum is not widened. Chest leads in place. Mild increased markings left lower lobe, possibly bronchiectasis. Right lung is clear. No pleural effusions. No pneumothorax. IMPRESSION: Mild increase left lower lobe retrocardiac markings. Possibly an element of bronchiectasis. No pleu ral effusions. DATA REPOSITORY: RADIATION DOSE DELIVERED: All CT scans at this facility use at least one of these dose optimization techniques: automated exposure control; mA and/or kV adjustment per patient size (includes targeted e xams where dose is matched to clinical indication); or iterative reconstruction.
--- NOTE | 2021-06-25 16:54 | W.PM.HP.N ---
Date of service: 06/25/21 Time of Service: 16:54 Assessment and Plan Assessment and plan (1) Subcapital fracture of left hip: Status: Acute Assessment and plan: NPO for OR tomorrow Check CPAmor Armijo. IS. COVID-19 may not keep the patient from getting her surgery tomorrow. (2) COVID-19: Status: Acute Assessment and plan: Start dexamethasone, remdesivir. Encourage IS, acapella. Consider IL-6 blockers - would need to weigh risk/benefits given upcoming surgery, which is still a possibility tomorrow. Provide supplementation with vitamin C, D. Wean O2 as tolerated. (3) Hypoxia: Status: Acute Assessment and plan: As above (4) Diabetes mellitus: Status: Chronic Assessment and plan: Cover with SSI. NPO after midnight - hold long acting insulin and oral agents. (5) Schizophrenia: Status: Chronic Assessment and plan: Continue home meds (6) Chronic kidney disease (CKD): Status: Acute Assessment and plan: At baseline (7) Tobacco use disorder: Status: Acute Assessment and plan: Provide nicotine replacement (8) DVT prophylaxis: Status: Acute Assessment and plan: SCDs. Heparin SC until 10 pm tonight. (9) Discharge planning issues: Status: Acute Assessment and plan: Full code Anticipate rehab on discharge History of Present Illness History of Present Illness Chief Complaint: L hip pain Narrative: Ms Sears is a 76 year old female with PMHx of IDDM2, CKD 3-4, hyperlipidemia, bipolar disorder and schizophrenia, who sustained a mechanical fall after trying to pull out an electrical cord from a wall outlet. She was able to pull herself up by using the side of the bed. She presented to [facility] by EMS today and was found to have a subcapital fracture of the left femoral neck. She is planned to go to the OR tomorrow. Upon arrival to the floor, the patient was noted to be desaturating to 84% on RA. Her COVID test came back positive. The patient is refusing to provide me with medical history. It's my time to sleep. I don't want to talk to anyone because it's my time to sleep. And I don't have COVID-19!, she stated. When asked how she fell/what happened, the patient pretended to have fallen asleep, opening up one of her eyes to check if I was still in the room. Review of Systems All systems reviewed & are unremarkable except as noted in HPI and below PFSH Medical History (Updated 06/25/21 @ 19:09 by Irina Coates MD) Bipolar disease, chronic Diabetes mellitus Diverticulosis History of colon cancer Hyperlipidemia Lung nodule Proteinuria Renal insufficiency Schizophrenia Tobacco abuse Surgical History Cholecystectomy Colectomy (~2001) right hemicolectomy Colonoscopy - MAC EGD - MAC Hernia Repair, Incisional Social History Smoking/Tobacco Use Status: Current every day Tobacco Type: cigarettes Smoking risk assessment performed?: Yes Alcohol Intake: current Drug use: Never Substance use type: does not use Do you feel safe at home: Yes Do you feel safe in your relationship?: Yes Meds Allergies and Home Medications Allergies Allergy/AdvReac Type Severity Reaction Status Date / Time Sulfa (Sulfonamide Allergy Unknown Not Unverified 06/25/21 15:41 Antibiotics) recalled Contrast Dye Allergy Unknown feeling of Uncoded 06/25/21 15:41 body burning Home Medications Medication Instructions Recorded Confirmed Type simvastatin 10 mg PO DAILY #1 tab-cap 04/15/14 06/25/21 History aspirin 81 mg PO DAILY 08/10/15 06/25/21 History cholecalciferol (vitamin D3) 1,000 units PO DAILY 08/10/15 06/25/21 History quetiapine [Seroquel] 300 mg PO DAILY 05/05/16 06/25/21 History Nicotrol 1 inh INHALATION 4-6XD PRN 10/31/19 06/25/21 History gabapentin 100 mg PO TID PRN 10/31/19 06/25/21 History polyethylene glycol 3350 [Miralax] 17 g PO DAILY 10/31/19 06/25/21 History Vraylar 1.5 mg PO DAILY 11/23/19 06/25/21 History Basaglar KwikPen U-100 Insulin 8 unit SUBCUT DAILY 12/25/20 06/25/21 History calcitriol 0.25 mcg PO .M,W,F 12/25/20 06/25/21 History glipizide 5 mg PO DAILY 12/25/20 06/25/21 History hydroxyzine HCl 25 mg PO BID PRN 12/25/20 06/25/21 History quetiapine [Seroquel] 400 mg PO .QHS 12/25/20 06/25/21 History Exam Narrative Exam Narrative: General: Frail elderly female who is pretending to be asleep, not cooperative with history Neurological: A&Ox2 (? - the patient is not cooperative with the exam), no obvious focal deficits Psychiatric: not cooperative, impulsive Skin: Visible skin intact HEENT: Atraumatic, normocephalic, EOMI, MMM, clear ororpharynx, no submandibular or cervical lymphadenopathy, no goiter or JVD Cardiovascular: RRR, no m/r/g Lungs: CTAB Gastrointestinal: soft, rotund/mildly distended, nontender Genitourinary: has a armijo Extremities: LLE slightly shortened, no e/c/c. Results Imaging Additional studies: XR L femur: Subcapital fracture of the left femoral neck. XR pelvis: Single AP view of the pelvis reveals a nondisplaced transverse fracture line in the left femoral neck. No other pelvic fractures identified. CXR: pending EKG: HR 89, NSR, no acute ischemia, LVH - unchanged from prior EKG. CXR: Mild increase left lower lobe retrocardiac markings. Possibly an element of bronchiectasis. No pleural effusions. Labs Result diagrams: 06/25/21 15:05 06/25/21 15:05 Labs: Laboratory Results - last 24 hr 06/25/21 06/25/21 15:05 15:05 WBC 8.22 RBC 3.84 L Hgb 12.4 Hct 39.8 MCV 103.6 H MCH 32.3 MCHC 31.2 L RDW 13.3 Plt Count 211 MPV 11.3 H Immature Gran % 0.4 Neutrophils % 83.5 Lymphocytes % 10.1 Monocytes % 5.2 Eosinophils % 0.4 Basophils % 0.4 Nucleated RBC % 0 Absolute Neutrophils 6.87 H Absolute Lymphocytes 0.83 L Absolute Monocytes 0.43 Absolute Eosinophils 0.03 Absolute Basophils 0.03 Sodium 144 Potassium 4.8 Chloride 111 H Carbon Dioxide 23.0 Anion Gap 10.0 BUN 33 H Creatinine 1.8 H Estimated GFR/1.73 m2 27.36 Glucose 387 H Calcium 8.9 Total Bilirubin 0.2 AST 13 L ALT 20 Alkaline Phosphatase 168 H Total Protein 7.5 Albumin 3.4 Last Vital Signs Temp 36.6 C 06/25/21 13:54 Pulse 86 06/25/21 13:54 Resp 20 06/25/21 13:54 Pulse Ox 99 06/25/21 13:54
[2021-06-25 17:25] LABS: Creatine Kinase 52 U/L (26-192)
[2021-06-25 17:27] LABS: Source Nasal/Nares
[2021-06-25 17:50] LABS: Bilirubin Negative (Negative); Blood Negative (Negative); Clarity Clear (Clear); Glucose 500 mg/dL (Negative); Ketones Negative (Negative); Leukocyte Esterase Negative (Negative); Nitrite Negative (Negative); Specific Gravity 1.015 (1.005-1.025); Urobilinogen 0.2 EU/dL (Up TO 0.2); pH 6.5 (5-8)
[2021-06-25] MEDS: Acetaminophen 325 MG TAB PO (17:56)
--- NOTE | 2021-06-25 17:56 | OCONE_ITS ---
Date of service: 06/26/21 Time of Service: 08:02 History of Present Illness History of Present Illness Chief Complaint: Left Hip Pain Narrative: Delmi is a 76-year-old who lives independently. She was carrying some items and trying to pull a cord on the wall. When she went to go pull this cord she stumbled on her way back after release from the wall and she landed on her left hip. She is unable to get up without significant pain on her own. She was brought to the emergency department and diagnosed with an impacted left femoral neck fracture. She was admitted to the medicine service. She is a chronic smoker. She has history of diabetes and COPD. She denies any recent COVID-19 or sick contacts. She has no chest pain or shortness of breath. She has no cough. She denies fevers or chills. Unfortunately, on admission she was tested for COVID-19 which returned positive. She denies any premorbid left hip pain. Unfortunately, overnight she was quite difficult and challenging for nursing. She refused to believe that she was COVID-19 positive. She rejected the test results. She pulled out her IV. She also got out of the bed on her own. She is quite adamant that she wants to go home as she does not trust these nurses. Consults Consult date: 06/25/21 Requesting physician: Aneesh Pickering Consult Reason Left valgus impacted femoral neck fracture Assessment and Plan Assessment and plan (1) Subcapital fracture of left hip: Status: Acute Assessment and plan: Delmi is a 76-year-old who has a nondisplaced fracture of the left femoral neck. Given the lack of displacement on the AP or the lateral I do think this is amenable to percutaneous screw fixation. There is a higher failure rate with this method of treatment but it is less invasive and simpler. Unfortunately, Delmi is limited by her schizophrenia and general distrust of the medical system. She desires to go home soon as possible does not trust the nurses or the staff at the hospital. She does understand that her left hip hurts when she tries to move it or bear weight and therefore does not want it to be fixed. Additionally, she has been diagnosed with COVID-19 on her admission. She denies any sick contacts and denies any symptoms. She was requi ring some oxygen but I think this is her baseline given her chronic tobacco use. At this point, it would make sense to proceed with surgical fixation soon as possible to allow her to mobilize and then eventually discharged on her own. There is a high risk complication given COVID-19 positivity, but this is more so seen in the symptomatic patients. However, her other comorbid factors such as diabetes and COPD and chronic tobacco use would complicate the matters as well. However, delaying stabilization would delay the ability to weight-bear and hopefully keep her moving. I reviewed the technical features of the case. I discussed the risk of the procedure to include bleeding, infection, pain, stiffness, need for repeat procedures, hardware failure, hardware loosening, malunion, nonunion, blood clot, cardiopulmonary demise. Despite these risk, she elects to proceed. Qualifiers: Encounter type: initial encounter Fracture type: closed Qualified C ode(s): S72.012A - Unspecified intracapsular fracture of left femur, initial encounter for closed fracture Review of Systems All systems reviewed & are unremarkable except as noted in HPI and below PFSH Medical History (Updated 06/26/21 @ 08:10 by Aneesh Pickering MD) Bipolar disease, chronic Diabetes mellitus Diverticulosis History of colon cancer Hyperlipidemia Lung nodule Proteinuria Renal insufficiency Schizophrenia Tobacco abuse Surgical History Cholecystectomy Colectomy (~2001) right hemicolectomy Colonoscopy - MAC EGD - MAC Hernia Repair, Incisional Social History Smoking/Tobacco Use Status: Current every day Tobacco Type: cigarettes Smoking risk assessment performed?: Yes Alcohol Intake: current Drug use: Never Substance use type: does not use Do you feel safe at home: Yes Do you feel safe in your relationship?: Yes Exam Narrative Exam Narrative: Left leg does not appear to be significantly rotated or shortened. There is pain with any passive internal or external rotation. No overlying skin changes. She has intact ankle dorsiflexion, plantarflexion, great toe extension and great toe flexion. Sensation intact light touch over the deep and superficial peroneal nerve and tibial nerve. Palpable PT pulse. Results Last Vital Signs Temp 36.6 C 06/25/21 13:54 Pulse 90 06/25/21 17:31 Resp 23 06/25/21 17:31 BP 137/69 06/25/21 17:31 Pulse Ox 80 L 06/25/21 17:30 Labs Result diagrams: 06/25/21 15:05 06/25/21 15:05 Labs: Laboratory Results - last 24 hr 06/25/21 06/25/21 06/25/21 15:05 15:05 15:05 WBC 8.22 RBC 3.84 L Hgb 12.4 Hct 39.8 MCV 103.6 H MCH 32.3 MCHC 31.2 L RDW 13.3 Plt Count 211 MPV 11.3 H Immature Gran % 0.4 Neutrophils % 83.5 Lymphocytes % 10.1 Monocytes % 5.2 Eosinophils % 0.4 Basophils % 0.4 Nucleated RBC % 0 Absolute Neutrophils 6.87 H Absolute Lymphocytes 0.83 L Absolute Monocytes 0.43 Absolute Eosinophils 0.03 Absolute Basophils 0.03 Sodium 144 Potassium 4.8 Chloride 111 H Carbon Dioxide 23.0 Anion Gap 10.0 BUN 33 H Creatinine 1.8 H Estimated GFR/1.73 m2 27.36 Glucose 387 H Calcium 8.9 Total Bilirubin 0.2 AST 13 L ALT 20 Alkaline Phosphatase 168 H Creatine Kinase 52 Total Protein 7.5 Albumin 3.4 Urine Color Urine Clarity Urine pH Ur Specific Faber Urine Protein Urine Ketones Urine Blood Urine Nitrite Urine Bilirubin Urine Urobilinogen Ur Leukocyte Esterase Urine Glucose COVID-19 Source 06/25/21 06/25/21 17:10 17:30 WBC RBC Hgb Hct MCV MCH MCHC RDW Plt Count MPV Immature Gran % Neutrophils % Lymphocytes % Monocytes % Eosinophils % Basophils % Nucleated RBC % Absolute Neutrophils Absolute Lymphocytes Absolute Monocytes Absolute Eosinophils Absolute Basophils Sodium Potassium Chloride Carbon Dioxide Anion Gap BUN Creatinine Estimated GFR/1.73 m2 Glucose Calcium Total Bilirubin AST ALT Alkaline Phosphatase Creatine Kinase Total Protein Albumin Urine Color Yellow Urine Clarity Clear Urine pH 6.5 Ur Specific Faber 1.015 Urine Protein Trace H Urine Ketones Negative Urine Blood Negative Urine Nitrite Negative Urine Bilirubin Negative Urine Urobilinogen 0.2 Ur Leukocyte Esterase Negative Urine Glucose 500 H COVID-19 Source Nasal/Nares Imaging Imaging Studies: X-ray of the left femur and the hip demonstrates a Garden 1 valgus impacted femoral neck fracture of the left hip. There is no notable displacement on the AP or lateral view. The fracture line appears slightly lower on the AP pelvis but on the x-ray of the femur it does appear to be subcapital fracture with some valgus impaction. No suspicious lesions.
[2021-06-25 17:59] LABS: Bacteria Negative HPF (Negative); C & S Indicated? C&S Done As Ordered; Crystals Negative HPF (Negative); Epithelial Cells Negative HPF (Negative); Mucus Negative (Negative); RBC Negative HPF (0-2); WBC Negative HPF (0-5)
--- NOTE | 2021-06-25 18:14 | DI.VRAD_ITS ---
PROCEDURE INFORMATION: Exam: XR Chest Exam date and time: 06/25/2021 4:34 PM Age: 76 years old Clinical indication: Other: Fall, femur fracture TECHNIQUE: Imaging protocol: XR of the chest. Views: 1 view. COMPARISON: CT CHEST WO 02/18/2021 2:49 PM FINDINGS: Lungs: Emphysema. No focal airspace consolidation. Diffuse mild interstitial markings. Pleural spaces: No pleural effusion. No pneumothorax. Heart/Mediastinum: No cardiomegaly. Vasculature: The aorta demonstrates mild atherosclerotic calcification. Bones/joints: Unremarkable. Gastrointestinal tract: Dilated loops of gas filled bowel project the upper abdomen. IMPRESSION: 1. COPD/emphysema. 2. No focal airspace consolidation. 3. Dilated loops of gas-filled bowel project about the upper abdomen. Dictated and Authenticated by: Ean Coughlin MD. Ordering:SARAH Cash MD
[2021-06-25 18:57] LABS: COVID-19 PCR POSITIVE (Negative)
[2021-06-25] MEDS: Lactated Ringers 1,000 ML 80 ML IV (18:57)
--- NOTE | 2021-06-25 22:53 | NUR.NOTE ---
Nursing Note: This happened at 21:00 tonight patient was screaming and refusing care verbalizing 'i don't have any covid' you stupid nurse you put me in this covid room when i don't have any covid youre just a fucking nurse. Patient refused to be assess. Patient refused the medications despite education. This RN explained the importance of the medication, repositioning,oxygen and vital signs but she still refused. Patient was rude to this nurse, she screamed and degrade this RN. Patient also refused to be woken up if shes sleeping. This RN tried again to ask to get her Vital signs again every 4 hours but she got agitated again and screamed NO! telling this RN she doesn't need it and that she doesn't have any covid 19.
[2021-06-26] VITALS (9 sets, daily range): BP systolic 88–138; BP diastolic 61–76; PULSE 92–108; RESP 14–18; TEMP 36–37.7; O2SAT 95–100; BMI 18.1
[2021-06-26 08:56] LABS: Abs Immature Grans 0.02 10^3/uL (0.0-0.06); Absolute Basophil Count 0.04 10^3/uL (0.0-0.2); Absolute Eosinophil Count 0.11 10^3/uL (0.0-0.7); Absolute Lymphocyte Count 1.08 10^3/uL (1.2-3.4); Absolute Monocyte Count 0.41 10^3/uL (0.1-0.8); Basophils % 0.5; Eosinophils % 1.3; HCT 40.3 % (36.0-46.0); HGB 12.8 g/dL (11.2-15.7); Immature Grans % 0.2; Lymphocytes % 12.9; MCH 32.9 pg (27.0-33.0); MCHC 31.8 % (32.0-36.0); MCV 103.6 fL (80-95); MPV 11.6 fL (8.0-11.0); Monocytes % 4.9; Neutrophils % 80.2; Nucleated RBC 0 %; Platelet Count 206 10^3/uL (130-400); RBC 3.89 10^6/uL (3.93-5.22); RDW 13.4 % (11.7-14.6); RDW-SD 51.2 fL; WBC 8.36 10^3/uL (4.4-10.8)
[2021-06-26 09:12] LABS: Prothrombin Time 9.8 sec (9.3-11.0)
[2021-06-26] MEDS: QUEtiapine 300 MG TAB PO (09:49)
[2021-06-26] MEDS: Insulin Aspart 300 UNITS/3 ML PEN SC (09:49)
[2021-06-26] MEDS: Famotidine 20 MG TAB PO (09:50)
[2021-06-26] MEDS: Gabapentin 100 MG CAP PO (09:50)
[2021-06-26] MEDS: Ipratropium/Albuterol 4 GM 120 PUFF INH IH (09:51)
[2021-06-26 10:05] LABS: ALT 22 U/L (14-59); AST 13 U/L (15-37); Albumin 3.4 g/dL (3.4-5.0); Alkaline Phosphatase 167 U/L (46-116); Anion Gap 11.9 mmol/L (3-11); BUN 35 mg/dL (7-18); Bilirubin, Total 0.2 mg/dL (0.2-1.0); CO2 22.1 mmol/L (21.0-32.0); CREATININE 1.8 mg/dL (0.55-1.02); Calcium 8.8 mg/dL (8.5-10.1); Chloride 112 mmol/L (98-107); Estimated GFR 27.36 (mL/min/1.73m2); Ferritin 91 ng/mL (8-252); Glucose 273 mg/dL (74-106); Potassium 4.8 mmol/L (3.5-5.1); Sodium 146 mmol/L (136-145); Total Protein 7.3 g/dL (6.4-8.2)
[2021-06-26 10:07] LABS: Procalcitonin 0.1 ng/mL
--- NOTE | 2021-06-26 10:17 | ANES.PREOP_ITS ---
General Info Date of Service Date Performed: 06/26/21 Height: 5 ft 2 in Weight: 45 kg Body Mass Index (BMI): 18.1 Surgical Procedure: Operation Date: 06/26/21 13:10 Proposed Procedures Side Surgeon p Hip Cannulated Fx Left Aneesh Pickering MD Meds Allergies and Home Medications Allergies Allergy/AdvReac Type Severity Reaction Status Date / Time Sulfa (Sulfonamide Allergy Unknown Not Unverified 06/25/21 15:41 Antibiotics) recalled Contrast Dye Allergy Unknown feeling of Uncoded 06/25/21 15:41 body burning Home Medication Medication Instructions Recorded simvastatin 10 mg PO DAILY #1 tab-cap 04/15/14 aspirin 81 mg PO DAILY 08/10/15 cholecalciferol (vitamin D3) 1,000 units PO DAILY 08/10/15 quetiapine [Seroquel] 300 mg PO DAILY 05/05/16 Nicotrol 1 inh INHALATION 4-6XD PRN 10/31/19 gabapentin 100 mg PO TID PRN 10/31/19 polyethylene glycol 3350 [Miralax] 17 g PO DAILY 10/31/19 Vraylar 1.5 mg PO DAILY 11/23/19 Basaglar KwikPen U-100 Insulin 8 unit SUBCUT DAILY 12/25/20 calcitriol 0.25 mcg PO .M,W,F 12/25/20 glipizide 5 mg PO DAILY 12/25/20 hydroxyzine HCl 25 mg PO BID PRN 12/25/20 quetiapine [Seroquel] 400 mg PO .QHS 12/25/20 Current Visit Medications: Current Medications Generic Name Dose Route Start Last Admin Trade Name Freq PRN Reason Stop Dose Admin Acetaminophen 0 mg 06/25/21 16:45 06/25/21 17:56 Acetaminophen 325 Mg Tab PO 650 mg Q4H PRN PRN Administration Al Hydrox/Mg Hydrox/Simethicone 30 ml 06/25/21 16:45 Mylanta Suspension 30 Ml Cup PO Q2H PRN PRN Albuterol Sulfate 0 puff 06/25/21 19:11 Albuterol Hfa 8 Gm 60 Puff Inh IH Q4H PRN PRN Albuterol/Ipratropium 0 puff 06/25/21 20:00 06/26/21 09:51 Ipratropium/Albuterol 4 Gm 120 Puff Inh IH 1 puffs QID OLAF Administration Ascorbic Acid 1,000 mg 06/25/21 20:00 06/25/21 21:11 Ascorbic Acid 500 Mg Tab PO Not Given BID [facility] Aspirin 81 mg 06/26/21 08:30 06/26/21 10:01 Aspirin 81 Mg Chew PO Not Given DAILY [facility] Calcitriol 0.25 mcg 06/26/21 08:30 Calcitriol 0.25 Mcg Cap PO [id number] [facility] Cholecalciferol 2,000 units 06/26/21 08:30 06/26/21 10:01 Cholecalciferol (Vitamin D3) 1,000 Unit Tab PO Not Given DAILY [facility] Device 1 each 06/25/21 20:00 Inhaler, Assist Device MC DIRECTED [facility] Dexamethasone 6 mg 06/25/21 19:15 06/25/21 21:11 Dexamethasone 4 Mg/Ml Vial IVP Not Given Q24H [facility] Dextrose 0 gm 06/25/21 16:50 Glucose 40% Oral Solution 15 Gm/37.5 Gm Tube PO DIRECTED PRN Dextrose/Water 0 gm 06/25/21 16:50 Dextrose 50%-Water 25 Gm/50 Ml Syr IVP DIRECTED PRN Dimethicone/Zinc Oxide 0 gm 06/25/21 16:40 Kaushik Protect Cream 142 Gm Tube TP PRN PRN Docusate Sodium 100 mg 06/25/21 16:45 Docusate Sodium 100 Mg Cap PO TID PRN PRN Famotidine 20 mg 06/26/21 08:30 06/26/21 09:50 Famotidine 20 Mg Tab PO 20 mg DAILY OLAF Administration Gabapentin 100 mg 06/25/21 20:00 06/26/21 09:50 Gabapentin 100 Mg Cap PO 100 mg TID OLAF Administration Hydroxyzine HCl 25 mg 06/25/21 19:10 Hydroxyzine Hcl 25 Mg Tab PO BID PRN PRN Sodium Chloride 500 mls @ 0 mls/hr 06/25/21 15:03 Saline 500ml Bag IV PRN PRN As Directed Remdesivir 100 mg/ Sodium 100 mls @ 100 mls/hr 06/27/21 10:00 Chloride IVPB 06/30/21 10:59 Q24H OLAF Remdesivir 200 mg/ Sodium 250 mls @ 250 mls/hr 06/26/21 11:00 Chloride IVPB 06/26/21 11:59 NOW ONE IV Miscellaneous Supplies 1 each 06/25/21 15:15 Iv Access IV DIRECTED [facility] Insulin Aspart 0 units 06/25/21 17:00 06/26/21 09:49 Insulin Aspart 300 Units/3 Ml Pen SC 3 units 0800,1200,1700,2200 [facility] Administration Protocol Magnesium Hydroxide 30 ml 06/25/21 16:45 Milk Of Magnesia 30 Ml Cup PO DAILY PRN PRN Morphine Sulfate 1 mg 06/25/21 19:09 Morphine 2 Mg/Ml Syr IVP Q2H PRN PRN Nicotine 30 cartridge 06/25/21 17:16 Nicotine 10 Mg/Cartridge 30 Cart/Pkg IH Q2H PRN PRN Non-Formulary Medication 1.5 mg 06/26/21 08:30 06/26/21 10:01 Cariprazine [Vraylar] PO Not Given DAILY [facility] Polyethylene Glycol 17 gm 06/26/21 08:30 06/26/21 10:01 Polyethylene Glycol 3350 17 Gm Packet PO Not Given DAILY [facility] Quetiapine Fumarate 300 mg 06/26/21 08:30 06/26/21 09:49 Quetiapine 300 Mg Tab PO 300 mg DAILY [facility] Administration Quetiapine Fumarate 400 mg 06/25/21 22:00 06/25/21 21:11 Quetiapine 100 Mg Tab PO Not Given HS OLAF Simvastatin 10 mg 06/26/21 08:30 Simvastatin 10 Mg Tab PO DAILY [facility] Sodium Chloride 0 ml 06/25/21 15:03 Normal Saline Flush 10 Ml Syr IVP PRN PRN PFSH Active Problems Active Problems: Problem Status Onset Code Hypoxia R09.02 COVID-19 U07.1 Discharge planning issues Z02.9 DVT prophylaxis Z29.9 Subcapital fracture of left hip S72.012A Hypoglycemia E16.2 Leg pain M79.606 Diabetes mellitus Schizophrenia Hypoglycemia E16.2 Medical non-compliance Z91.19 Hypoglycemia E16.2 Malaise R53.81 Actinic keratosis 12/03/15 L57.0 Impacted cerumen of both ears 07/21/16 H61.23 Neoplasm of unspecified nature of bone, soft tissue, and skin 10/01/15 D49.2 Sebaceous cyst 12/03/15 L72.3 Tobacco use disorder 10/23/14 F17.200 History of colonic polyps Z86.010 Dehydration E86.0 Syncope R55 Chronic kidney disease (CKD) N18.9 UTI (urinary tract infection) N39.0 Medical History Medical History (Updated 06/26/21 @ 08:10 by Aneesh Pickering MD) Bipolar disease, chronic Diabetes mellitus Diverticulosis History of colon cancer Hyperlipidemia Lung nodule Proteinuria Renal insufficiency Schizophrenia Tobacco abuse Surgical History Surgical History Cholecystectomy Colectomy (~2001) right hemicolectomy Colonoscopy - MAC EGD - MAC Hernia Repair, Incisional Tobacco Smoking/Tobacco Use Status: Current every day Tobacco Type: cigarettes Alcohol Alcohol Intake: current Substance Use Substance use: Never Substance use type: does not use Vital Signs and Lab Results Vital Signs Most Recent Vital Signs in EMR: Most Recent Vital Signs Temp Pulse Resp BP Pulse Ox 36 C L 95 H 18 138/61 97 06/26/21 01:44 06/26/21 01:44 06/26/21 01:44 06/26/21 01:44 06/26/21 01:44 Point of Care Results Point of Care Results: Finger Stick Blood Glucose 238 06/26/21 09:49 Lab Results Result Diagrams: 06/26/21 08:12 06/26/21 08:12 Blood Type / Crossmatch: No Data to Display Complete Blood Count: White Blood Count 8.36 10^3/uL (4.4-10.8) 06/26/21 08:12 06/26/21 Red Blood Count 3.89 10^6/uL (3.93-5.22) L 06/26/21 08:12 06/26/21 Hemoglobin 12.8 g/dL (11.2-15.7) 06/26/21 08:12 06/26/21 Hematocrit 40.3 % (36.0-46.0) 06/26/21 08:12 06/26/21 Platelet Count 206 10^3/uL (130-400) 06/26/21 08:12 06/26/21 Complete Metabolic Panel: Sodium Level 146 mmol/L (136-145) H 06/26/21 08:12 06/26/21 Potassium Level 4.4 mmol/L (3.5-5.1) 06/26/21 08:12 06/26/21 Chloride Level 112 mmol/L (98-107) H 06/26/21 08:12 06/26/21 Carbon Dioxide Level 22.5 mmol/L (21.0-32.0) 06/26/21 08:12 06/26/21 Blood Urea Nitrogen 35 mg/dL (7-18) H 06/26/21 08:12 06/26/21 Creatinine 1.7 mg/dL (0.55-1.02) H 06/26/21 08:12 06/26/21 Estimated GFR/1.73 m2 29.22 (mL/min/1.73m2) 06/26/21 08:12 06/26/21 Magnesium Level 2.2 mg/dL (1.8-2.4) 06/26/21 08:12 06/26/21 Calcium Level 8.9 mg/dL (8.5-10.1) 06/26/21 08:12 06/26/21 Albumin 3.4 g/dL (3.4-5.0) 06/26/21 08:12 06/26/21 Glucose Level 268 mg/dL (74-106) H 06/26/21 08:12 06/26/21 Liver Function Panel: Alanine Aminotransferase (ALT/SGPT) 22 U/L (14-59) 06/26/21 08:12 06/26/21 Aspartate Amino Transf (AST/SGOT) 13 U/L (15-37) L 06/26/21 08:12 06/26/21 Coagulation Panel: INR International Normalized Ratio 1.0 (0.9-1.1) 06/26/21 08:12 06/26/21 Prothrombin Time 9.8 sec (9.3-11.0) 06/26/21 08:12 06/26/21 Cardiac Panel: Creatine Kinase 37 U/L (26-192) 06/26/21 08:12 06/26/21 Arterial Blood Gas: No Data to Display Venous Blood Gas: No Data to Display Pancreas Panel: No Data to Display Thyroid Panel: No Data to Display Infectious Disease: Coronavirus (COVID-19)(PCR) POSITIVE (Negative) A* 06/25/21 17:10 06/25/21 Coronavirus 2019 Source Nasal/Nares 06/25/21 17:10 06/25/21 Blood Cultures: No Data to Display Toxicology Panel: No Data to Display Imaging and Studies Imaging and Studies EKG Summary: DATE/TIME OF SERVICE: 06/25/21 1642 Conclusion Sinus rhythm. Left anterior fascicular block...axis(240,-40), init forces inf Probable left ventricular hypertrophy.. Stress Test Summary: 2019: no scar or ischemia, LVEF 78%. Echocardiogram Summary: Date of study: 09/21/2015 Transthoracic Echocardiography M-mode, complete 2D, complete spectral Doppler, and color Doppler *STUDY CONCLUSIONS* Summary: 1. Left ventricle: The cavity size was at the lower limits of normal. There was mild focal basal hypertrophy of the septum. Systolic function was hyperdynamic. The estimated ejection fraction was 65-70%. Wall motion was normal; there were no regional wall motion abnormalities. 2. Right ventricle: The cavity size was at the lower limits of normal. Wall thickness was normal. Systolic function was hyperdynamic. Carotid Artery Summary:: Date of Exam: 09/17/15ex: F : 1945ge: 70 US:Carotid SYMPTOMS/DIAGNOSIS: LLE PARESTHESIA, R20.0, RISK FOR VASCULAR DISEASE, H/O SYNCOPAL EPISODE 08/10/15, R55 CAROTID ULTRASOUND: There is bilateral intimal thickening. Minimal plaque formation is identified. Antegrade flow is noted in the vertebrals. SUMMARY: No evidence of significant carotid stenosis. Ordering Provider: FRANCHESCA DOMINGUEZ Pulmonary Function Summary: Date: 06/07/2013 Provider: Isac Ferrer Tech: SONIA MR# [id number] V#: [id number] : 1945 Height: 62.75 in Weight: 133.00 lbs Age: 67 Sex Female Diagnosis: Pre-op Smokes <1 ppd x 28 yrs Pulmonary Medications: None Post Test Comments: EFFORT: Questionable patient effort and cooperation. Patient declined to do a bronchodilator study. Patient was unable to achieve a DLCO with greater 85% SVC. Spirometry shows mild obstructive airways disease. No bronchodilator testing was carried out. Lung volume incomplete testing. Mildly decreased slow vital capacity. No total capacity was measured. Diffusion capacity moderately reduced which is mildly reduced when corrected to alveolar volume. IMPRESSION: Mild obstructive airways disease with moderate diffusion defect. Clinical correlation recommended. For lung resection purposes, the patient's prebronchodilator FEV1 is 1.60 L. Anesthesia Assessment and Plan Anesthesia History Personal History: No History of Anesthesia Complications Family History: No Family History of Anesthesia Complications Exercise Tolerance Exercise Tolerance: Metabolic Equivalents>4 Pertinent Negatives Pertinent Negatives: No Symptoms of GERD Cardiac & Pulmonary Exam Cardiac Exam: Unable to Assess Pulmonary Exam: Unable to Assess Airway Exam Known Difficult Airway: No Mallampati Class: Unable to Assess Mouth Opening: Unable to Assess Thyromental Distance: Less than 3 cm Neck Range of Motion: Limited ROM Neck Circumference: Normal Teeth Condition: Edentulous ASA Classification ASA Score: ASA 3 Emergency Case?: No NPO Status NPO Status: NPO Clears >2 hours, Solids >8 hours Anesthesia Plan Resuscitation Status: Full Code Anesthesia Technique: Spinal Anesthesia Airway Planned: Natural Airway Monitors Used: Standard Monitors Preoperative Comments:: 76 yo female with hip fracture. Sig PMHx: Schizophrenia, colon CA with hemicolectomy, RUL lung mass, + covid, Discussed with pt risks benefits, and alternatives of GA vs spinal. plan spinal.
[2021-06-26 10:44] LABS: Anion Gap 11.5 mmol/L (3-11); BUN 35 mg/dL (7-18); CO2 22.5 mmol/L (21.0-32.0); CREATININE 1.7 mg/dL (0.55-1.02); Calcium 8.9 mg/dL (8.5-10.1); Chloride 112 mmol/L (98-107); Creatine Kinase 37 U/L (26-192); Estimated GFR 29.22 (mL/min/1.73m2); Glucose 268 mg/dL (74-106); Magnesium 2.2 mg/dL (1.8-2.4); Potassium 4.4 mmol/L (3.5-5.1); Sodium 146 mmol/L (136-145)
--- NOTE | 2021-06-26 11:57 | DI.RAD_ITS ---
Exam(s) XR HIP LT IN OR EXAM: XR HIP LT IN OR CLINICAL HISTORY: left hip fracture. TECHNIQUE: 2D and realtime digital imaging was performed. CONTRAST MATERIAL: Oral barium Oral water soluble contrast was administered. COMPARISON: Recent x-rays FINDINGS: Fluoroscopy was provided during orthopedic screw placement across femoral neck fracture site. Submit yang C-arm images reveal placement of 3 orthopedic screws across the fracture site. IMPRESSION: As above. Total fluoroscopy time 97.4 seconds. Cumulative dose= 5.73mGy RADIATION DOSE DELIVERED: chauncey Espinoza=5.73 mGy
[2021-06-26] MEDS: Lactated Ringers 1,000 ML 80 ML IV (12:41)
[2021-06-26] MEDS: Bupivacaine 0.25% Pres-Free 30 ML VIAL (13:13)
--- NOTE | 2021-06-26 15:15 | IN_ITS ---
Date of service: 06/26/21 Time of Service: 15:15 PT Notes Visit Reasons: L Hip FX Physical Therapy Inpatient Initial Evaluation Date: 06/26/2021 Referring Doctor: FRANCES George PT Orders: PT CONSULT: Status post ortho surgery Precautions: Fall. Standard. WBAT on left LE with AD. Patient Profile/Admitting Diagnosis: Delmi is a 76-year-old female with schizophrenia and bipolar disorder who presented to the ED due to a fall on her L hip with diagnosis of valgus-impacted left femoral neck fracture status post percutaneous screw fixation on postoperative day 0. PMHX: Medical History (Updated 06/25/21 @ 19:09 by Irina Coates MD) Bipolar disease, chronic Diabetes mellitus Diverticulosis History of colon cancer Hyperlipidemia PAC without medical treatment EDS can feel that this is Lung nodule Proteinuria Renal insufficiency Schizophrenia Tobacco abuse Surgical History Cholecystectomy Colectomy (~2001) right hemicolectomy Colonoscopy - MAC EGD - MAC Hernia Repair, Incisional Social History/Home Situation: Unwilling to provide information regarding her living situation. Did say that she has steps 4 steps to enter the house. Equipment Owned/DME: None Subjective: Not cooperative. Not pleasant. Initially did not want to get out of bed due to her legs feeling different. Complained of pain in the L hip when PT and D[employer]ETING OFFICER attempted a mobility assessment. Had 2 manic outbursts where she shouted while we were trying to reason with her regarding what to do to be safe during bed mobility training. Not receptive with instructions given to her for the mobility assessment. Commended the nurse who kept her purse and all her stuff safe while she was on surgery. Extremely thirsty and hungry. Did not want to cooperate unless she is given her snacks. In extreme distress about how she was treated today on her way to and from surgery. Threatened to write up this hospital for the way she perceives she has been treated. Objective: General Observation: Sleeping when PT and D[employer]ETING OFFICER came in. Supine in bed. IV in R UE. Was able to be roused by PT. Mental Status: Drowsy with difficulty and unwillingness to follow instructions due to cognitive status, pain level, and postoperative status Pain: Significant pain in L hip with movement and weight bearing, unwilling to quantify pain ROM: Unable to test formally. Grossly WFL in B UE and R LE. Strength: Right Upper Extremity: Grossly 3/5 Left Upper Extremity: Grossly 3/5 Right Lower Extremity: Grossly 3+/5 Left Lower Extremity: Able to bring hip and knee to about 90 degrees of flexion to pull up depends and pants up while in bed. Able to bridge and elevate pelvis to about half a foot from the bed to hike her pants up. Able to slide B LE slowly onto edge of bed while holding onto rail on the L and pulling from the right edge of bed to sit up. Bed Mobility/Transfers: Rolling stand by assist Supine to sit stand by assist with report of significant discomfort on the L hip Sit to supine stand by assist with report of significant discomfort on the L hip Sit to stand minimal assist of 2 but did not want to be touched until she realized she needed help. Immediately backed up onto bed and refused taking further steps. Stand to sit minimal assist of 2 Bed to reclining chair refused/unable Reclining chair to bed refused/unable Gait: Patient did not want to be held even though she appeared highly unstable. She just took two steps and could not proceed any further due to pain, weakness, and instability in B LE. Balance: Static Sitting: Fair Dynamic Sitting: Fair Static Standing: Poor Dynamic Standing: Poor Special Tests: Mobility Limitations Standardized Measure [facility]-PAC 6 clicks Basic Mobility Inpatient Short Form: Raw Score: 12 CMS Score: 69% deficit Informed Consent/Education: Patient was instructed in purpose of PT consult. Was not entirely cooperative and not in agreement of mobility assessment. Cognitive level and post anesthesia effects limiting today's evaluation. Assessment: Has a strong aversion to being touched which greatly complicated today's mobility assessment. Unsafe to go home alone at this time. Will plan on re-evaluating tomorrow morning to determine mobility level more accurately. Psych diagnoses highly impacting patient's behavior at this time. Patient presents with clinical signs and symptoms consistent with current/admitting diagnoses that have resulted to mobility limitations, gait instability, generalized weakness, and overall ADL decline as demonstrated by the following impairment level findings: 1. Decreased strength to B UE/LE major muscle groups 2. Impaired sitting/standing balance 3. Impaired activity tolerance 4. Limitation of joint range of motion in L hip 5. Pain in L hip 6. Psych diagnoses limiting mental stability and decision making at this time Impairments are contributing to the following functional limitations: 1. Decline in bed mobility skills 2. Decline in transfer skills 3. Difficulty with ambulation without assistive device and physical assistance 4. Increased completion time for mobility ADL performance 5. Increased risk for falls 6. Difficulty with managing steps alone safely 7. Inability to thrive alone at home Patient is assessed as a 26461 high complexity based on the following: History: 76-year-old female with past medical history as indicated above Examination: Demonstrable impairment in strength, balance, and mobility level with underlying impairments and functional limitations as exhibited above as well as deficit score of 12% utilizing the [facility] Mobility Inpatient Short Form Presentation: Unstable Decision Makin high complexity Goals: Goals X1 week 1. Supine-Sit supervision 2. Sit-Supine supervision 3. Sit-Stand supervision 4. Stand-Sit supervision 5. Bed-Chair supervision 6. Chair-Bed supervision 7. Standby assist gait on level surface with use of FWW for at least 30 feet without report of pain nor dyspnea 8. Standby assist stair negotiation while holding onto B rails for at least 5 steps without report of pain nor dyspnea Plan of Care/Treatment Plan: 1-2x/day, 7 days/week x 1 week. Plan of care has been reviewed with the D[employer] OFFICER providing the service under Physical Therapy direction. Initiate Physical Therapy intervention for pain management as needed, strengthening, bed mobility, transfers, gait, stairs, balance training, and use of assistive device as tolerated. DISCHARGE RECOMMENDATIONS: Patient will benefit from intermediate facility placement for continued skilled physical therapy services in order to progress mobility level, strength, and balance. Will defer to hospitalist regarding the need for psychiatric re-stabilization prior to effectively providing rehabilitation for L hip ORIF. TREATMENT CODE/TIME: 68098 x 30 minutes, 9753 0 x 20 minutes beginning at 15:15 PM. Thank you for the opportunity to participate in the care of this patient. Elsie Nunes PT, DPT, CLT [facility] [place], [place]
--- NOTE | 2021-06-26 15:25 | W.ANESPOSTOP ---
Postoperative Evaluation Date, Time and Location Date Performed: 06/26/21 Time Performed: 14:30 Patient Location: PACU Vital Signs Most Recent Imported Vital Signs: Most Recent Vital Signs Temp Pulse Resp BP Pulse Ox 36 C L 92 H 14 124/76 99 06/26/21 01:44 06/26/21 14:20 06/26/21 14:20 06/26/21 14:20 06/26/21 14:20 Pain Score Most Recent Pain Score: Most Recent Pain Score Pain Level [Left Hip] 7 06/25/21 16:14 Pain Level 0 06/26/21 14:20 Assessment Mental Status: Awake (Alert & Oriented to Patient Baseline) Airway and Respiratory Function: Patent airway with normal (patient baseline) respiratory exam Cardiovascular Function: Hemodynamically Stable Hydration Status: Adequately Hydrated Nausea & Vomiting: No Nausea or Vomiting Pain: Pt. Denies Any Pain Peripheral Nerve Block: Patient did not receive a nerve block
--- NOTE | 2021-06-26 17:08 | NUR.NOTE ---
patient refused blood glucose check and stated she will do it at home.Nursing Note:
--- NOTE | 2021-06-26 17:11 | NUR.NOTE ---
patient refused vital signs as she is eating at this time.Nursing Note:
--- NOTE | 2021-06-26 17:36 | DSE_ITS ---
Date of service: 06/26/21 Time of Service: 17:36 DS: Diagnosis Discharge Diagnosis (1) Subcapital fracture of left hip: Status: Acute (2) COVID-19: Status: Acute (3) Diabetes mellitus: Status: Chronic (4) Tobacco abuse: Status: Acute (5) Schizophrenia: Status: Chronic Discharge Plan Disposition Patient Disposition: AGAINST MEDICAL ADVICE Condition: Fair Discharge Details Reason For Visit: L Hip FX Admit Date/Time: 06/25/21 16:43 Admit Provider: Irina Coates Attending Provider: Irina Coates [facility]: Ms Sears is a 76 year old female with PMHx of IDDM2, schizophrenia, CKD, tobacco abuse, who was a patient on [facility] hospitalist service and is now leaving A after an admission for a traumatic subcapital left hip fracture as well as COVID-19 which was felt to be relatively asymptomatic in this vaccinated individual. The patient initially required 2L of O2 but her oxygen requirement resolved within hours of arrival suggesting atelectasis. She refused treatment for COVID-19. She underwent an uncomplicated percutaneous screw fixation by Dr Pickering on 06/26/21. We felt she had capacity to make the decision to consent. After this, she was evaluated by physical therapy who recommended SNF on discharge, but the patient wants to go home today, which is against medical advice. Again, we feel she has capacity. Referrals are being sent to home health nursing, PT, OT, [facility]. The patient is being sent home with a 3 day supply of percocet. She should follow up with her PCP and with orthopedics. [facility] is being notified of her discharge. Care for patient as well as completion of her discharge summary on day of discharge took 35 minutes. Home Meds and New Rx's Prescriptions: New cholecalciferol (vitamin D3) 25 mcg (1,000 unit) Tablet 2,000 units PO DAILY Qty: 30 RF: 0 oxycodone-acetaminophen [Percocet] 5-325 mg tablet 1 tab PO Q8H PRNQty: 10 RF: 0 Continued simvastatin 10 MG tablet 10 mg PO DAILY Qty: 1 RF: 0 aspirin 81 MG tablet,chewable 81 mg PO DAILY RF: 0 cholecalciferol (vitamin D3) 1,000 UNITS tablet 1,000 units PO DAILY RF: 0 quetiapine [Seroquel] 300 MG tablet 300 mg PO DAILY RF: 0 hydroxyzine HCl 25 mg tablet 25 mg PO BID PRNRF: 0 calcitriol 0.25 mcg capsule 0.25 mcg PO .M,W,F RF: 0 glipizide 5 mg tablet 5 mg PO DAILY RF: 0 quetiapine [Seroquel] 400 mg tablet 400 mg PO .QHS RF: 0 Basaglar KwikPen U-100 Insulin 100 unit/mL (3 mL) insulin pen 8 unit SUBCUT DAILY RF: 0 Nicotrol 10 mg Cartridge 1 inh INHALATION 4-6XD PRNRF: 0 gabapentin 100 mg Capsule 100 mg PO TID PRNRF: 0 polyethylene glycol 3350 [Miralax] 17 gram/dose Powder 17 g PO DAILY RF: 0 Vraylar 1.5 mg Capsule 1.5 mg PO DAILY RF: 0 Discharge Instructions Instructions: Hip Fracture (ED), COVID-19 (Coronavirus Disease 2019) (DC) Additional Instructions: You should self-isolate for 10 days. Return to the hospital if you develop shortness of breath, bleeding, chest pain, or fever. Care Plan Goals: AMA. Referrals to home health nursing, PT, OT, [facility] Referrals: Aneesh Pickering MD [ [facility] STAFF PHYSICIAN] - Ean Dhillon [Primary Care Provider] - Activity:: Activity as Tolerated Equipment/Supplies:: No Equipment Needed Diet:: Carb Counting Discharge Orders Discharge Orders: Discharge Order (Routine); Ordered 06/26/21 Ordered By: Irina Coates Discharge Data Discharge Date/Time-TO BE ENTERED AT DEPARTURE: 06/26/21 17:51 DS: Summary Time Spent with Patient providing and/or coordinating discharge services: Greater than 30 minutes Status at Discharge Functional status at discharge: independent ambulation Overall status at discharge: patient is progressing back to baseline Mental Status: mental status grossly normal Speech and Movement: agitated Mood: congruent mood Affect: anxious affect Exam Narrative Exam Narrative: Patient left prior to my ability to examine her today Psych Mental Status: mental status grossly normal Mood: congruent mood Affect: anxious affect DS: Data Vitals/I&O Vitals and I&O: Vital Signs Temperature 37.7 C H 06/26/21 11:58 Temperature Source Tympanic 06/26/21 01:44 Pulse 92 H 06/26/21 14:20 Pulse Rhythm Regular 06/26/21 17:00 Pulse 84 06/25/21 17:50 Respiratory Rate 14 06/26/21 14:20 Respiratory Effort 06/26/21 17:00 Respiratory Depth Normal 06/26/21 17:00 Respiratory Pattern Normal 06/26/21 17:00 Blood Pressure 124/76 06/26/21 14:20 Blood Pressure Mean 87 06/25/21 17:46 Blood Pressure Position Supine 06/25/21 13:54 Pulse Oximetry 99 06/26/21 14:20 Oxygen Delivery Method Room Air 06/26/21 14:20 Oxygen Flow Rate 0 06/26/21 11:58 Pain Level 0 06/26/21 14:20 Comment 06/25/21 13:54 Intake & Output 06/25/21 06/26/21 06/26/21 23:59 11:59 23:59 Intake Total 90.667 / 90.667 157.333 / 157.333 Output Total 1999 200 / 200 Balance -1909.333 / -1909.333 -200 / -42.667 157.333 / -42.667 Weight 45 kg 45 kg Intake: IV 90.667 / 90.667 157.333 / 157.333 Output: Urine 1999 200 / 200 Other: Urine Color Pale Pale Yellow Urine Appearance Clear Clear Clear Comment patient voided in the toilet , clear, yellow urine, unmeasured Emesis Description None Data Completed and Pending Completed studies during hospitalization [Text1]: XR L femur: Subcapital fracture of the left femoral neck. XR pelvis: Single AP view of the pelvis reveals a nondisplaced transverse fracture line in the left femoral neck. No other pelvic fractures identified. CXR: Mild increase left lower lobe retrocardiac markings. Possibly an element of bronchiectasis. No pleural effusions. Labs on day of discharge: Labs from last 24 hours 06/26/21 06/26/21 06/26/21 08:12 08:12 08:12 WBC RBC Hgb Hct MCV MCH MCHC RDW Plt Count MPV Immature Gran % Neutrophils % Lymphocytes % Monocytes % Eosinophils % Basophils % Nucleated RBC % Absolute Neutrophils Absolute Lymphocytes Absolute Monocytes Absolute Eosinophils Absolute Basophils PT INR Sodium 146 H Potassium 4.8 Chloride 112 H Carbon Dioxide 22.1 Anion Gap 11.9 H BUN 35 H Creatinine 1.8 H Estimated GFR/1.73 m2 27.36 Glucose 273 H Calcium 8.8 Magnesium Ferritin 91 Total Bilirubin 0.2 AST 13 L ALT 22 Alkaline Phosphatase 167 H Creatine Kinase Total Protein 7.3 Albumin 3.4 25-OH Vitamin D Total Pending Procalcitonin 0.1 Urine Color Urine Clarity Urine pH Ur Specific [place] Urine Protein Urine Ketones Urine Blood Urine Nitrite Urine Bilirubin Urine Urobilinogen Ur Leukocyte Esterase Urine RBC Urine WBC Ur Epithelial Cells Urine Crystals Urine Bacteria Urine Mucus Ur Culture Indicated? Urine Glucose SARS-CoV-2 (PCR) 06/26/21 06/26/21 06/26/21 08:12 08:12 08:12 WBC 8.36 RBC 3.89 L Hgb 12.8 Hct 40.3 MCV 103.6 H MCH 32.9 MCHC 31.8 L RDW 13.4 Plt Count 206 MPV 11.6 H Immature Gran % 0.2 Neutrophils % 80.2 Lymphocytes % 12.9 Monocytes % 4.9 Eosinophils % 1.3 Basophils % 0.5 Nucleated RBC % 0 Absolute Neutrophils 6.70 Absolute Lymphocytes 1.08 L Absolute Monocytes 0.41 Absolute Eosinophils 0.11 Absolute Basophils 0.04 PT 9.8 INR 1.0 Sodium 146 H Potassium 4.4 Chloride 112 H Carbon Dioxide 22.5 Anion Gap 11.5 H BUN 35 H Creatinine 1.7 H Estimated GFR/1.73 m2 29.22 Glucose 268 H D Calcium 8.9 Magnesium 2.2 Ferritin Total Bilirubin AST ALT Alkaline Phosphatase Creatine Kinase 37 Total Protein Albumin 25-OH Vitamin D Total Procalcitonin Urine Color Urine Clarity Urine pH Ur Specific [place] Urine Protein Urine Ketones Urine Blood Urine Nitrite Urine Bilirubin Urine Urobilinogen Ur Leukocyte Esterase Urine RBC Urine WBC Ur Epithelial Cells Urine Crystals Urine Bacteria Urine Mucus Ur Culture Indicated? Urine Glucose SARS-CoV-2 (PCR) 06/25/21 06/25/21 17:30 17:10 WBC RBC Hgb Hct MCV MCH MCHC RDW Plt Count MPV Immature Gran % Neutrophils % Lymphocytes % Monocytes % Eosinophils % Basophils % Nucleated RBC % Absolute Neutrophils Absolute Lymphocytes Absolute Monocytes Absolute Eosinophils Absolute Basophils PT INR Sodium Potassium Chloride Carbon Dioxide Anion Gap BUN Creatinine Estimated GFR/1.73 m2 Glucose Calcium Magnesium Ferritin Total Bilirubin AST ALT Alkaline Phosphatase Creatine Kinase Total Protein Albumin 25-OH Vitamin D Total Procalcitonin Urine Color Yellow Urine Clarity Clear Urine pH 6.5 Ur Specific [place] 1.015 Urine Protein Trace H Urine Ketones Negative Urine Blood Negative Urine Nitrite Negative Urine Bilirubin Negative Urine Urobilinogen 0.2 Ur Leukocyte Esterase Negative Urine RBC Negative Urine WBC Negative Ur Epithelial Cells Negative Urine Crystals Negative Urine Bacteria Negative Urine Mucus Negative Ur Culture Indicated? C&S Done As Ordered Urine Glucose 500 H SARS-CoV-2 (PCR) POSITIVE A* Preliminary micro results at discharge 06/25/21 17:30 Urine Culture - Preliminary Urine - Cath [place] Indwelling [facility] Medical History (Updated 06/26/21 @ 17:36 by Irina Coates MD) Bipolar disease, chronic Diabetes mellitus Diverticulosis History of colon cancer Hyperlipidemia Lung nodule Proteinuria Renal insufficiency Schizophrenia Tobacco abuse Surgical History Cholecystectomy Colectomy (~2001) right hemicolectomy Colonoscopy - MAC EGD - MAC Hernia Repair, Incisional Social History Smoking/Tobacco Use Status: Current every day Tobacco Type: cigarettes Smoking risk assessment performed?: Yes Alcohol Intake: current Drug use: Never Substance use type: does not use Do you feel safe at home: Yes Do you feel safe in your relationship?: Yes
--- NOTE | 2021-06-26 17:49 | PDOC.CMPRO ---
Care Management Progress Note S/O: Delmi decided to leave AMA s/p left hip repair. CM was unable to meet with Delmi over the phone due to her covid diagnosis as she did not answer. Per report she is unwilling to provide information regarding her living situation, natural supports and contacts. Per provider she is refusing SNF placement which was recommended by PT, given that she is requiring assistance with ambulating. Delmi wants to go home. A: Delmi is a 76 year old female admitted to [facility] on 06/25/21 for a left hip fracture. P: Delmi is medically cleared by MD and surgeon. She tested positive for COVID on admission. Paula from PT recommends SNF placement. Delmi is unwilling to go to a SNF and adamantly refuses the idea. She would like to go back to her home right now. Disposition per provider will be AMA. CM arranged transportation via EMS. Face to face was sent to [facility] for new SN/PT/[facility]IST. [facility] notified.
--- NOTE | 2021-06-26 17:52 | PDOC.HHF2F ---
Home Health Certification Home Health Certification: 1. Encounter Date and Reason I certify that Delmi Sears was seen by Irina Coates on 06/26/21 and that I had a [id number] encounter with this patient that meets the physician face to face encounter requirements. 2. Clinical Findings Supporting Skilled Need and Homebound Status I certify that home health services are medically necessary, include either intermittent assisted and/or physical/speech therapy, and that this patient is homebound in that absences from the home require considerable and taxing effort and are infrequent or of short duration, or are attributable to the need to receive medical care. [X] (a) Attached documentation from encounter provides clinical findings supporting skilled need and homebound status (including what assistance patient requires to leave the home). The encounter with the patient was in whole, or in part, for the following medical condition, which is the primary reason for home health care: L Hip FX Residential: COVID-19, hip fx s/p repair - evaluate wound, pulse ox, safety at home Physical Therapy: eval and treat occupational therapy: eval and treat [employer]: evaluate need for resources in the community Homebound: unable to leave home without assistance 3. Certification and Authentication I certify that I composed the above information based on my clinical judgement relating to this patient's medical condition and, if applicable, clinical findings communicated to me by the NPP or inpatient physician who performed the Home Health Referral. All further orders will be obtained through _Dr Dhillon (Community Based Physician - PCP)
[2021-06-27 04:59] LABS: Vitamin D 25 Total 32.3 ng/mL (30-100)
--- NOTE | 2021-06-27 07:42 | ROE_ITS ---
Date of service: 06/26/21 Time of Service: 13:42 Operative Note Operative Note DATE OF PROCEDURE: 06/26/21 PRE-OP DIAGNOSIS: Left nondisplaced subcapital femoral neck fracture POST-OP DIAGNOSIS: same PROCEDURE: Percutaneous screw fixation of left femoral neck fracture SURGEON: Aneesh Pickering ANESTHESIA TYPE: Spinal Refer to Anesthesia Record ESTIMATED BLOOD LOSS: 100 PATHOLOGY: none sent COMPLICATIONS: None Patient was transported to: PACU Patient's condition: stable Indications: Delmi who presented to the Emergency Department after a fall. X- rays confirmed the diagnosis of a nondisplaced fracture of the proximal femur, subcapital region. I reviewed the possible treatment options and given the fracture of the femur, I recommended operative fixation. I discussed the technical details of the surgery. I reviewed the risks such as bleeding, infection, pain, stiffness, malunion, nonunion, hardware prominence, hardware faiilure, malrotation, avascular necrosis, blood clot. Despite these risks, she agreed to proceed. She was admitted to the medical service for preoperative clearance. It was found at that time that she was COVID-19 positive and necessary precautions were taken. She was asymptomatic and therefore was deemed safe to proceed with surgery for the left femoral neck. She does have schizophrenia and was erratic in her behavior on the floor but was able to discuss the surgery and appropriately agree and consent. Findings: No formal reduction was performed except for just gentle traction to position on table. X-ray showed maintained alignment. The fracture secured with three 7.3 mm cannulated screws in an inverted triangle position. Procedure Description: Delmi was greeted in the operative room, prior to proceeding with surgery, but avoiding any other general spaces due to COVID-19 positivity. Consent was previously reviewed and signed. Once in the operating room, spinal anesthesia was administered. The patient was transferred to the fracture table in the supine position. She was positioned onto the perineal post. All bony prominences were well padded. The nonoperative leg was placed into the hemilithotomy position. The operative limb was placed in the traction boot and padded and secured. Gentle traction was applied simply for positioning but no reduction maneuver was performed. Prophylactic antibiotics, Cefazolin 2 grams, was given for prophylactic antibiotics. A timeout was performed for safe surgery. X-ray was taken to show that the fracture was still nondisplaced. The left leg was prepped with Chloraprep. A shower curtain drape was placed. Using fluoroscopy, the starting point for the more distal screw was identified. This was marked on the skin. This area was then infiltrated with a cocktail consisting of 50cc of 0.5% bupivacaine, 30mg Ketorolac, and 10cc of Exparel both superficially and deep down to the lateral border of the femur. Through the skin I percutaneously placed the guidewire from the 7.3 mm cannulated system onto the lateral edge of the femur making sure not to start distal to the lesser trochanter. This was felt to be slightly posterior and had a correct angle. It was then advanced along the inferior border of the femoral neck into the femoral head. A second guidewire was then placed more proximally, once again trying to be posterior. This was placed roughly parallel to the first screw but over the superior portion of the femoral neck and into the femoral head. A lateral view confirmed appropriate positioning of these being in the more posterior portion of the neck and entering to the femoral head. The lateral view in position I then placed a anterior, proximal screw. This guidewire was placed parallel to the second guidewire aiming for the anterior portion of the femoral neck and femoral head. Once this was positioned the fluoroscopy was taken back to the AP view to confirm that the appropriate lengths were correct. There is no penetration of the guidewires from the system into the articular space. I then overdrilled the near cortex and some of the tract of the screw. These guidewires were measured and appropriate size screws were placed. Each was placed individually but not fully tightened. I then went through and tying each 1 by about a half turn before moving to the next. I sequentially did this until each screw was nice and tight with excellent purchase. This seem to be appropriate position on the AP view. I then went to the lateral view. Unfortunate the lateral view there appeared to be very close proximity of the anteriormost edge of the anterior, superior screw against the joint surface. Therefore, I remove this [address] with a 80 mm screw which once again had excellent bite but was not as close to the joint surface. Final x-rays were obtained. The wounds were irrigated thoroughly with normal saline. The skin was closed with a running subcuticular Monocryl. The wounds were dressed with a Mepilex silver dressing. At the end of the case, all counts were correct. Delmi tolerated the procedure well without known complication and was taken to the PACU for recovery. Physical therapy will start post-operatively, weigh-bearing as tolerated with assistive devices. Anticoagulation will start within 12-24 hours. 3 doses of post-operative antibitiocis for prophylaxis will be administered.
--- NOTE | 2021-06-27 17:10 | INDS_ITS ---
Date of service: 06/27/21 PT Notes Visit Reasons: L Hip FX Physical Therapy Inpatient Discharge Summary Date: 06/27/2021 Date of service: 06/26/2021 only This is a clinical summary of care provided for the duration of dates listed above. No charge was made in the completion of this documentation. Referring Doctor: FRANCES George PT Orders: PT CONSULT: Status post ortho surgery Precautions: Fall. Standard. WBAT on left LE with AD. Patient Profile/Admitting Diagnosis: Delmi is a 76-year-old female with schizophrenia and bipolar disorder who presented to the ED due to a fall on her L hip with diagnosis of valgus-impacted left femoral neck fracture status post percutaneous screw fixation on postoperative day 0. PMHX: Medical History (Updated 06/25/21 @ 19:09 by Irina Coates MD) Bipolar disease, chronic Diabetes mellitus Diverticulosis History of colon cancer Hyperlipidemia PAC without medical treatment EDS can feel that this is Lung nodule Proteinuria Renal insufficiency Schizophrenia Tobacco abuse Surgical History Cholecystectomy Colectomy (~2001) right hemicolectomy Colonoscopy - MAC EGD - MAC Hernia Repair, Incisional Social History/Home Situation: Unwilling to provide information regarding her living situation. Did say that she has steps 4 steps to enter the house. Equipment Owned/DME: None Subjective: Not cooperative. Not pleasant. Initially did not want to get out of bed due to her legs feeling different. Complained of pain in the L hip when PT and [facility] [employer] attempted a mobility assessment. Had 2 manic outbursts where she shouted while we were trying to reason with her regarding what to do to be safe during bed mobility training. Not receptive with instructions given to her for the mobility assessment. Commended the nurse who kept her purse and all her stuff safe while she was on surgery. Extremely thirsty and hungry. Did not want to cooperate unless she is given her snacks. In extreme distress about how she was treated today on her way to and from surgery. Threatened to write up this hospital for the way she perceives she has been treated. Objective: General Observation: NT. See most recent [employer] [employer] notes. Mental Status: NT. See most recent [employer] [employer] notes. Pain: NT. See most recent [employer] [employer] notes. ROM: Unable to test formally. Grossly WFL in B UE and R LE. Strength: Right Upper Extremity: Grossly 3/5 Left Upper Extremity: Grossly 3/5 Right Lower Extremity: Grossly 3+/5 Left Lower Extremity: Able to bring hip and knee to about 90 degrees of flexion to pull up depends and pants up while in bed. Able to bridge and elevate pelvis to about half a foot from the bed to hike her pants up. Able to slide B LE slowly onto edge of bed while holding onto rail on the L and pulling from the right edge of bed to sit up. Bed Mobility/Transfers: Rolling stand by assist Supine to sit stand by assist with report of significant discomfort on the L hip Sit to supine stand by assist with report of significant discomfort on the L hip Sit to stand minimal assist of 2 but did not want to be touched until she realized she needed help. Immediately backed up onto bed and refused taking further steps. Stand to sit minimal assist of 2 Bed to reclining chair refused/unable Reclining chair to bed refused/unable Gait: Patient did not want to be held even though she appeared highly unstable. She just took two steps and could not proceed any further due to pain, weakness, and instability in B LE. Balance: Static Sitting: Fair Dynamic Sitting: Fair Static Standing: Poor Dynamic Standing: Poor Assessment: Patient left AMA on day of evalaution. Has a strong aversion to being touched which greatly complicated today's mobility assessment. Unsafe to go home alone at this time. Will plan on re-evaluating tomorrow morning to determine mobility level more accurately. Psych diagnoses highly impacting patient's behavior at this time. Patient presents with clinical signs and symptoms consistent with current/admitting diagnoses that have resulted to mobility limitations, gait instability, generalized weakness, and overall ADL decline as demonstrated by the following impairment level findings: 1. Decreased strength to B UE/LE major muscle groups 2. Impaired sitting/standing balance 3. Impaired activity tolerance 4. Limitation of joint range of motion in L hip 5. Pain in L hip 6. Psych diagnoses limiting mental stability and decision making at this time Impairments are contributing to the following functional limitations: 1. Decline in bed mobility skills 2. Decline in transfer skills 3. Difficulty with ambulation without assistive device and physical assistance 4. Increased completion time for mobility ADL performance 5. Increased risk for falls 6. Difficulty with managing steps alone safely 7. Inability to thrive alone at home Goals: Goals X1 week 1. Supine-Sit supervision NOT MET 2. Sit-Supine supervision NOT MET 3. Sit-Stand supervision NOT MET 4. Stand-Sit supervision NOT MET 5. Bed-Chair supervision NOT MET 6. Chair-Bed supervision NOT MET 7. Standby assist gait on level surface with use of FWW for at least 30 feet without report of pain nor dyspnea NOT MET 8. Standby assist stair negotiation while holding onto B rails for at least 5 steps without report of pain nor dyspnea NOT MET DISCHARGE RECOMMENDATIONS: Patient facility AMA on . Declined recommendation of SNF placement. TREATMENT CODE/TIME: NC Thank you for the opportunity to participate in the care of this patient. Elsie Nunes PT, DPT, CLT [facility] [place], [place]
== END 2021-06-26 17:51 | disposition left against medical advice (07) | DRG 480 ==
LOC: ER 13:59 → MS 18:12
PROVIDERS: Student in an Organized Health Care Education/Training Program; Admitting Provider Internal Medicine; Emergency Provider Registered Nurse Emergency; PCP Family Medicine; Visit Provider Internal Medicine
PROC: 0QH734Z Insertion of Internal Fixation Device into Left Upper Femur, Percutaneous Approach (ICD-10-PCS; CPT 27235; principal; 2021-06-26 13:00)
DX: S72.012A Unspecified intracapsular fracture of left femur, initial encounter for closed fracture (principal); U07.1 COVID-19; N18.4 Chronic kidney disease, stage 4 (severe); W01.0XXA Fall on same level from slipping, tripping and stumbling without subsequent striking against object, initial encounter; R09.02 Hypoxemia; E11.22 Type 2 diabetes mellitus with diabetic chronic kidney disease; F20.9 Schizophrenia, unspecified; F17.210 Nicotine dependence, cigarettes, uncomplicated; E78.5 Hyperlipidemia, unspecified; F31.9 Bipolar disorder, unspecified; Z85.038 Personal history of other malignant neoplasm of large intestine; R91.1 Solitary pulmonary nodule
CPT/HCPCS: 27235; 36415; 51702; 73552; 80048; 80053; 82306; 82550; 84145; 87635; 93005; 97163; 97530; 99222; 99285; 71045; 72170; 73501; 81003; 81015; 82728; 83735; 85025; 85610; 87086; 93010; 99223; 99239; C1781; J0690; J2270; J2405; J2704; J3490

== ENCOUNTER 2021-08-05 15:13 | Outpatient (CLI) | payer MEDICARE, MEDICAID, SELFPAY ==
--- NOTE | 2021-08-05 14:15 | DI.RAD_ITS ---
Exam(s) XR HIP LT AP LAT ONLY EXAM: XR HIP LT AP LAT ONLY INDICATION: post op screw fixation for femur fx. COMPARISON: RF XR HIP LT IN OR from 06/26/2021 RF XR HIP LT IN OR from 06/26/2021 TECHNIQUE: 2D digital imaging was performed. FINDINGS: Three screws are again noted through the femoral neck for fracture fixation. There is no change in h ardware or fracture alignment. DATA REPOSITORY: RADIATION DOSE DELIVERED:
== END 2021-08-05 15:14 | disposition home or self-care (01) ==
LOC: DIORS 15:13
PROVIDERS: PCP Family Medicine; Referring Provider Family Medicine; Visit Provider Specialist
DX: S72.012D Unspecified intracapsular fracture of left femur, subsequent encounter for closed fracture with routine healing; X58.XXXD Exposure to other specified factors, subsequent encounter
CPT/HCPCS: 73502

== ENCOUNTER 2021-09-13 07:34 | Emergency (ER) | payer MEDICARE, MEDICAID, SELFPAY ==
[2021-09-13 07:34] VITALS: BP 132/75; PULSE 94; RESP 16; TEMP 36.4; O2SAT 99
--- NOTE | 2021-09-13 07:45 | DI.RAD_ITS ---
Exam(s) XR FOOT LT COMPLETE EXAM: XR FOOT LT COMPLETE CLINICAL HISTORY: infection left great toe, r/o gas TECHNIQUE: COMPARISON: No exams were available for comparison FINDINGS: Three views were obtained. The patient reportedly has and infection of the great toe. There are mar ked degenerative changes of the 1st MTP joint and mild DJD of the IP joints of the foot. There is no evidence of an erosive or destructive bony lesion. There is no evidence of gas in the soft tissues. There is moderate forefoot swelling. IMPRESSION: No specific evidence of osteomyelitis. If there is a high clinical suspicion of osteomyelitis addit ional evaluation with MRI should be considered. RADIATION DOSE DELIVERED: Total DLP
--- NOTE | 2021-09-13 07:45 | DI.US_ITS ---
Exam(s) US EXTREMITY VENOUS BI EXAM: US EXTREMITY VENOUS BI CLINICAL HISTORY: b/l lower extremity edema. TECHNIQUE: Ultrasound performed using standard protocol. COMPARISON: US US breast LT complete from 05/05/2019 FINDINGS: Duplex venous ultrasound was performed according to the usual protocol. The deep veins are freely com pressible throughout and there is normal flow augmentation with manual calf compression. 2D and Doppl er evaluation are unremarkable. IMPRESSION: No evidence of deep venous thrombosis of the right or left lower extremity. DATA REPOSITORY:
[2021-09-13 07:55] VITALS: RESP 16
--- NOTE | 2021-09-13 08:02 | ED.GENADUL_ITS ---
Discharge Plan Disposition Patient Disposition: HOME Condition: Stable Discharge Details Clinical Impression: Cellulitis Primary Care Provider: Ean Dhillon ED Provider: Ofe Guevara Home Meds and New Rx's Prescriptions: New doxycycline hyclate 100 mg capsule 100 mg PO BID Qty: 19 RF: 0 Continued simvastatin 10 MG tablet 10 mg PO DAILY Qty: 1 RF: 0 aspirin 81 MG tablet,chewable 81 mg PO DAILY RF: 0 quetiapine [Seroquel] 300 MG tablet 300 mg PO DAILY RF: 0 hydroxyzine HCl 25 mg tablet 25 mg PO BID PRNRF: 0 calcitriol 0.25 mcg capsule 0.25 mcg PO .M,W,F RF: 0 glipizide 5 mg tablet 5 mg PO DAILY RF: 0 quetiapine [Seroquel] 400 mg tablet 400 mg PO .QHS RF: 0 Basaglar KwikPen U-100 Insulin 100 unit/mL (3 mL) insulin pen 8 unit SUBCUT DAILY RF: 0 oxycodone-acetaminophen [Percocet] 5-325 mg tablet 1 tab PO Q8H PRNQty: 10 RF: 0 cholecalciferol (vitamin D3) 25 mcg (1,000 unit) tablet 1,000 units PO DAILY RF: 0 Nicotrol 10 mg Cartridge 1 inh INHALATION 4-6XD PRNRF: 0 gabapentin 100 mg Capsule 100 mg PO TID PRNRF: 0 polyethylene glycol 3350 [Miralax] 17 gram/dose Powder 17 g PO DAILY RF: 0 Vraylar 1.5 mg Capsule 1.5 mg PO DAILY RF: 0 Discharge Instructions Instructions: Cellulitis (ED), Bed Bugs (ED) Additional Instructions: Please return immediately to the emergency department if you develop any new or worsening symptoms, if your condition does not improve as expected, or if you become otherwise concerned. It is extremely important that you call soon as possible to make an appointment to be seen in follow-up for this visit by your primary care doctor. Referrals: Ean Dhillon [Primary Care Provider] - Medical Decision Making Delmi Sears is a 76-year-old woman with a history of insulin-dependent diabetes, schizophrenia, chronic kidney disease who presented to emergency department with chief complaint left foot redness. On exam patient is nontoxic- appearing. There is 1+ pitting edema to bilateral feet to the ankle, no posterior calf tenderness to palpation, no lower leg edema otherwise. Erythema of the left toe, medial aspect, with some mild erythema into the medial aspect of the left foot. Areas of erythema, left foot, left ankle nontender to palpation. There is no joint edema. Full range of motion of the toes and ankle. Patient is at her baseline mental status per several staff that know patient well. Concern for likely cellulitis, possible DVT. Doubt early sepsis, doubt necrotizing fasciitis, however as patient is a poor historian we will plan for screening labs and x-rays to rule out gas as well as DVT studies. Exam/history at this time is not consistent with meningitis, acute CHF, acute coronary syndrome, acute aortic or other acute arterial vascular pathology. Labs reviewed, lactate 1.1, WBC 7.05, hemoglobin 11.2, anion gap 11.9, creatinine 1.8 (baseline for patient). X-ray negative, ultrasound negative. Will treat with doxycycline for cellulitis. Attempted to contact care management, care management not available/not on-call today given 's holiday. Patient placed on care management list for outpatient follow-up peds office early next week (PCPs office not open today given holiday). Patient is amenable to plan. Of note, nursing saw apparent bug on patient skin that appears to be a bedbug. Patient denies any itching. Area of erythema on foot did not appear to be bacterial infection bedbug bites. No other rash or bedbug bites. Bed bug information provided with discharge instructions. I had a discussion with Patient regarding return to emergency department precautions, home care, and importance of outpatient follow-up within the next 3-4 days. Pt verbalizes understanding of the plan and is amenable. Patient discharged to home with clear plan for outpatient follow-up. All questions were answered. Disposition decision was made weighing the risks and benefits of hospitalization versus outpatient treatment, the risk for further decompensation, and the patient's wishes. Medical Records Medical records reviewed: Yes I reviewed the patient's medical records. Imaging Data Radiologic Study: Attestation: I personally reviewed and interpreted this imaging study as follows: Radiologist's impression: Exam: US Duplex Lower Extremity Veins, Bilateral Exam date and time: 09/13/2021 8:01 AM Age: 76 years old Clinical indication: Other: Lower extremity edema TECHNIQUE: Imaging protocol: Real-time duplex ultrasound of the extremities with 2-D owens scale, color Doppler flow and spectral waveform analysis with image documentation. Complete exam focused on the bilateral lower extremity veins. COMPARISON: US RENAL ULTRASOUND(P) 05/07/2016 12:35 PM FINDINGS: Right deep veins: Unremarkable. The common femoral, femoral, proximal profunda femoral and popliteal veins are patent without thrombus. Normal Doppler waveforms. Normal compressibility and/or augmentation response. Right superficial veins: Saphenofemoral junction is patent without thrombus. Left deep veins: Unremarkable. The common femoral, femoral, proximal profunda femoral and popliteal veins are patent without thrombus. Normal Doppler waveforms. Normal compressibility and/or augmentation response. Left superficial veins: Saphenofemoral junction is patent without thrombus. Soft tissues: Unremarkable. IMPRESSION: No evidence of deep vein thrombosis. Exam: XR Left Foot Exam date and time: 09/13/2021 8:01 AM Age: 76 years old Clinical indication: Other: Left great toe infection, R/O gas TECHNIQUE: Imaging protocol: XR Left foot. Views: 3 or more views. COMPARISON: No relevant prior studies available. FINDINGS: Bones/joints: Advanced degenerative changes at the 1st MTP joint. Moderate osteopenia. No acute fracture or dislocation. Soft tissues: Subcutaneous edema is noted. No evidence of soft tissue gas. IMPRESSION: Advanced degenerative changes 1st MTP joint with no evidence of osteomyelitis. No soft tissue gas is seen. Subcutaneous edema in the forefoot. Lab Data Lab results reviewed: Yes I reviewed the patient's lab results. Labs: 09/13/21 08:45 Blood Blood Culture - Pending 09/13/21 08:30 Blood Blood Culture - Pending Laboratory Tests Range/Units 09/13/21 09/13/21 09/13/21 08:30 08:30 08:30 WBC (4.4-10.8) 10^3/uL 7.05 RBC (3.93-5.22) 10^6/uL 3.34 L Hgb (11.2-15.7) g/dL 11.2 Hct (36.0-46.0) % 35.0 L MCV (80-95) fL 104.8 H MCH (27.0-33.0) pg 33.5 H MCHC (32.0-36.0) % 32.0 RDW (11.7-14.6) % 13.5 Plt Count (130-400) 10^3/uL 216 MPV (8.0-11.0) fL 11.2 H Immature Gran % 0.3 Neutrophils % 78.7 Lymphocytes % 14.0 Monocytes % 5.5 Eosinophils % 1.1 Basophils % 0.4 Nucleated RBC % % 0 Absolute Neutrophils (1.2-6.7) 10^3/uL 5.54 Absolute Lymphocytes (1.2-3.4) 10^3/uL 0.99 L Absolute Monocytes (0.1-0.8) 10^3/uL 0.39 Absolute Eosinophils (0.0-0.7) 10^3/uL 0.08 Absolute Basophils (0.0-0.2) 10^3/uL 0.03 VBG Lactate (0.6-1.4) mmol/L 1.1 Sodium (136-145) mmol/L 136 Potassium (3.5-5.1) mmol/L 5.0 Chloride (98-107) mmol/L 104 Carbon Dioxide (21.0-32.0) mmol/L 20.1 L Anion Gap (3-11) mmol/L 11.9 H BUN (7-18) mg/dL 47 H Creatinine (0.55-1.02) mg/dL 1.8 H Estimated GFR/1.73 m2 (mL/min/1.73m2) 27.36 Glucose (74-106) mg/dL 225 H Calcium (8.5-10.1) mg/dL 8.3 L Total Bilirubin (0.2-1.0) mg/dL 0.1 L AST (15-37) U/L 18 ALT (14-59) U/L 26 Alkaline Phosphatase (46-116) U/L 177 H Total Protein (6.4-8.2) g/dL 7.6 Albumin (3.4-5.0) g/dL 3.4 TSH (0.36-3.74) uIU/mL Range/Units 09/13/21 08:30 WBC (4.4-10.8) 10^3/uL RBC (3.93-5.22) 10^6/uL Hgb (11.2-15.7) g/dL Hct (36.0-46.0) % MCV (80-95) fL MCH (27.0-33.0) pg MCHC (32.0-36.0) % RDW (11.7-14.6) % Plt Count (130-400) 10^3/uL MPV (8.0-11.0) fL Immature Gran % Neutrophils % Lymphocytes % Monocytes % Eosinophils % Basophils % Nucleated RBC % % Absolute Neutrophils (1.2-6.7) 10^3/uL Absolute Lymphocytes (1.2-3.4) 10^3/uL Absolute Monocytes (0.1-0.8) 10^3/uL Absolute Eosinophils (0.0-0.7) 10^3/uL Absolute Basophils (0.0-0.2) 10^3/uL VBG Lactate (0.6-1.4) mmol/L Sodium (136-145) mmol/L Potassium (3.5-5.1) mmol/L Chloride (98-107) mmol/L Carbon Dioxide (21.0-32.0) mmol/L Anion Gap (3-11) mmol/L BUN (7-18) mg/dL Creatinine (0.55-1.02) mg/dL Estimated GFR/1.73 m2 (mL/min/1.73m2) Glucose (74-106) mg/dL Calcium (8.5-10.1) mg/dL Total Bilirubin (0.2-1.0) mg/dL AST (15-37) U/L ALT (14-59) U/L Alkaline Phosphatase (46-116) U/L Total Protein (6.4-8.2) g/dL Albumin (3.4-5.0) g/dL TSH (0.36-3.74) uIU/mL 1.58 HPI General Mode of arrival: EMS . Date/Time Provider Initiated Documentation: 09/13/21 07:39 . Limitations to Documentation: no limitations . Information obtained by: patient, RN notes reviewed and old records reviewed . HPI Narrative: Delmi Sears is a 76-year-old woman with a history of insulin- dependent diabetes, schizophrenia, chronic kidney disease presenting to emergency department with chief complaint left foot redness. Patient provides minimal history, states ask all the people I already told the story to. Patient reports redness of her left toe since yesterday, swelling of both feet that is new. Patient does not state how long swelling of both feet has been present for. She denies any pain, fever, vomiting, diarrhea, shortness of breath, cough, numbness, weakness. Denies injury or other known inciting event, however per triage note patient had a pimple on left toe initially. Related Data Home Medications Medication Instructions Recorded Confirmed simvastatin 10 mg PO DAILY #1 tab-cap 04/15/14 09/13/21 aspirin 81 mg PO DAILY 08/10/15 09/13/21 quetiapine [Seroquel] 300 mg PO DAILY 05/05/16 09/13/21 Nicotrol 1 inh INHALATION 4-6XD PRN 10/31/19 09/13/21 gabapentin 100 mg PO TID PRN 10/31/19 09/13/21 polyethylene glycol 3350 [Miralax] 17 g PO DAILY 10/31/19 09/13/21 Vraylar 1.5 mg PO DAILY 11/23/19 09/13/21 Basaglar KwikPen U-100 Insulin 8 unit SUBCUT DAILY 12/25/20 09/13/21 calcitriol 0.25 mcg PO .M,W,F 12/25/20 09/13/21 glipizide 5 mg PO DAILY 12/25/20 09/13/21 hydroxyzine HCl 25 mg PO BID PRN 12/25/20 09/13/21 quetiapine [Seroquel] 400 mg PO .QHS 12/25/20 09/13/21 oxycodone-acetaminophen [Percocet] 1 tab PO Q8H PRN #10 tab 06/26/21 09/13/21 cholecalciferol (vitamin D3) 1,000 units PO DAILY 09/13/21 09/13/21 doxycycline hyclate 100 mg PO BID #19 cap 09/13/21 Previous Rx's Medication Instructions Recorded oxycodone-acetaminophen [Percocet] 1 tab PO Q8H PRN #10 tab 06/26/21 doxycycline hyclate 100 mg PO BID #19 cap 09/13/21 Allergies Allergy/AdvReac Type Severity Reaction Status Date / Time Sulfa (Sulfonamide Allergy Unknown Not Unverified 09/13/21 07:45 Antibiotics) recalled Contrast Dye Allergy Unknown feeling of Uncoded 09/13/21 07:45 body burning General Stated Complaint: [facility] MACARENA: 3 Review of Systems Narrative: Constitutional: denies fevers Eyes: denies eye pain ENT: denies ear pain, dental pain, sore throat Cardiovascular: denies chest pain, reports bilateral foot edema Respiratory: denies SOB, cough GI: denies abdominal pain, vomiting, diarrhea : denies flank pain MSK: denies back pain, neck pain, arthralgias, myalgias Skin: Reports rash to left toe/foot Neuro: denies headaches, numbness, weakness PFSH All Active Problems (Updated 09/13/21 @ 11:21 by Ofe Guevara MD) Cellulitis (Acute) Tobacco abuse (Acute) Hypoxia (Acute) COVID-19 (Acute) Discharge planning issues (Acute) DVT prophylaxis (Acute) Subcapital fracture of left hip (Acute) s/p percutaneous screw fixation (06/26/21) Hypoglycemia (Acute) Leg pain (Acute) Diabetes mellitus (Chronic) Schizophrenia (Chronic) Hypoglycemia (Acute) Medical non-compliance (Chronic) Malaise (Acute) Actinic keratosis (Acute 12/03/15) Impacted cerumen of both ears (Acute 07/21/16) Neoplasm of unspecified nature of bone, soft tissue, and skin (Acute 10/01/15) Sebaceous cyst (Acute 12/03/15) Tobacco use disorder (Acute 10/23/14) History of colonic polyps (Acute) Dehydration (Acute) Syncope (Acute) Chronic kidney disease (CKD) (Acute) UTI (urinary tract infection) (Acute) Medical History (Updated 09/13/21 @ 11:21 by Ofe Guevara MD) Bipolar disease, chronic Diverticulosis History of colon cancer Hyperlipidemia Lung nodule Proteinuria Renal insufficiency Tobacco abuse Surgical History Cholecystectomy Colectomy (~2001) right hemicolectomy Colonoscopy - MAC EGD - MAC Hernia Repair, Incisional Social History Smoking/Tobacco Use Status: Current every day Tobacco Type: cigarettes Smoking risk assessment performed?: Yes Alcohol Intake: current Drug use: Never Substance use type: does not use Do you feel safe at home: Yes Do you feel safe in your relationship?: Yes Exam Narrative Exam Narrative: Constitutional: [id number], disheveled with somewhat poor hygiene, pleasant, alert, does not answer all questions HENT: head atraumatic/normocephalic/normal inspection, mucous membranes moist Eyes: conjunctiva normal, sclera normal, pupils 3mm b/l Neck: no stridor, normal ROM, trachea midline Chest: normal inspection Resp: normal work of breathing, speaking in full sentences Cardio: normal rate, normal rhythm GI: abdomen soft, non-tender, non-distended Skin: warm, dry, normal color, no rash Neuro: alert and oriented x3, not altered, grossly non-focal, normal tone Ext: +1 pitting edema bilateral feet to ankles, no lower leg edema, no posterior calf tenderness to palpation, left great toe with medial erythema, no vesicles, no skin wound, nontender to palpation, painless active and passive range of motion of the toes and left ankle, no tenderness to palpation of the left foot Psych: normal mood, normal affect Course Vital Signs Vital signs: Vital Signs Temperature 36.4 C L 09/13/21 07:34 Pulse 94 H 09/13/21 07:34 Respiratory Rate 16 09/13/21 07:34 Blood Pressure 132/75 09/13/21 07:34 Pulse Oximetry 99 09/13/21 07:34 Temperature 36.4 C L 09/13/21 07:34 Temperature Source Skin 09/13/21 07:34 Pulse 94 H 09/13/21 07:34 Respiratory Rate 16 09/13/21 07:55 Respiratory Effort Non-Labored 09/13/21 07:55 Respiratory Depth Normal 09/13/21 07:55 Respiratory Pattern Normal 09/13/21 07:55 Blood Pressure 132/75 09/13/21 07:34 Blood Pressure Position Supine 09/13/21 07:34 Pulse Oximetry 99 09/13/21 07:34 Oxygen Delivery Method Room Air 09/13/21 07:34 Oxygen Flow Rate 0 09/13/21 07:34 Lab/Test Results Lab/Test Results: 09/13/21 07:58 Blood Blood Culture - Pending 09/13/21 07:58 Blood Blood Culture - Pending
[2021-09-13 08:35] LABS: Lactate 1.1 mmol/L (0.6-1.4)
[2021-09-13 08:37] LABS: Abs Immature Grans 0.02 10^3/uL (0.0-0.06); Absolute Basophil Count 0.03 10^3/uL (0.0-0.2); Absolute Eosinophil Count 0.08 10^3/uL (0.0-0.7); Absolute Lymphocyte Count 0.99 10^3/uL (1.2-3.4); Absolute Monocyte Count 0.39 10^3/uL (0.1-0.8); Absolute Neutrophil Count 5.54 10^3/uL (1.2-6.7); Basophils % 0.4; Eosinophils % 1.1; HGB 11.2 g/dL (11.2-15.7); Immature Grans % 0.3; MCH 33.5 pg (27.0-33.0); MCV 104.8 fL (80-95); MPV 11.2 fL (8.0-11.0); Monocytes % 5.5; Neutrophils % 78.7; Nucleated RBC 0 %; Platelet Count 216 10^3/uL (130-400); RBC 3.34 10^6/uL (3.93-5.22); RDW 13.5 % (11.7-14.6); RDW-SD 51.8 fL; WBC 7.05 10^3/uL (4.4-10.8)
[2021-09-13 09:06] LABS: ALT 26 U/L (14-59); AST 18 U/L (15-37); Albumin 3.4 g/dL (3.4-5.0); Alkaline Phosphatase 177 U/L (46-116); Anion Gap 11.9 mmol/L (3-11); BUN 47 mg/dL (7-18); Bilirubin, Total 0.1 mg/dL (0.2-1.0); CO2 20.1 mmol/L (21.0-32.0); CREATININE 1.8 mg/dL (0.55-1.02); Calcium 8.3 mg/dL (8.5-10.1); Chloride 104 mmol/L (98-107); Estimated GFR 27.36 (mL/min/1.73m2); Glucose 225 mg/dL (74-106); Sodium 136 mmol/L (136-145); Total Protein 7.6 g/dL (6.4-8.2)
[2021-09-13 09:07] LABS: TSH (W/Ref FT4) 1.58 uIU/mL (0.36-3.74)
--- NOTE | 2021-09-13 09:54 | DI.VRAD_ITS ---
PROCEDURE INFORMATION: Exam: XR Left Foot Exam date and time: 09/13/2021 8:01 AM Age: 76 years old Clinical indication: Other: Left great toe infection, R/O gas TECHNIQUE: Imaging protocol: XR Left foot. Views: 3 or more views. COMPARISON: No relevant prior studies available. FINDINGS: Bones/joints: Advanced degenerative changes at the 1st MTP joint. Moderate osteopenia. No acute fracture or dislocation. Soft tissues: Subcutaneous edema is noted. No evidence of soft tissue gas. IMPRESSION: Advanced degenerative changes 1st MTP joint with no evidence of osteomyelitis. No soft tissue gas is seen. Subcutaneous edema in the forefoot. Dictated and Authenticated by: Gloria Hilton MD. Ordering:KERMIT Thakur MD
--- NOTE | 2021-09-13 10:53 | DI.VRAD_ITS ---
PROCEDURE INFORMATION: Exam: US Duplex Lower Extremity Veins, Bilateral Exam date and time: 09/13/2021 8:01 AM Age: 76 years old Clinical indication: Other: Lower extremity edema TECHNIQUE: Imaging protocol: Real-time duplex ultrasound of the extremities with 2-D owens scale, color Doppler flow and spectral waveform analysis with image documentation. Complete exam focused on the bilateral lower extremity veins. COMPARISON: US RENAL ULTRASOUND(P) 05/07/2016 12:35 PM FINDINGS: Right deep veins: Unremarkable. The common femoral, femoral, proximal profunda femoral and popliteal veins are patent without thrombus. Normal Doppler waveforms. Normal compressibility and/or augmentation response. Right superficial veins: Saphenofemoral junction is patent without thrombus. Left deep veins: Unremarkable. The common femoral, femoral, proximal profunda femoral and popliteal veins are patent without thrombus. Normal Doppler waveforms. Normal compressibility and/or augmentation response. Left superficial veins: Saphenofemoral junction is patent without thrombus. Soft tissues: Unremarkable. IMPRESSION: No evidence of deep vein thrombosis. Dictated and Authenticated by: Gloria Hilton MD. Ordering:KERMIT Thakur MD
[2021-09-13] MEDS: Doxycycline Hyclate 100 MG CAP PO (11:35)
[2021-09-13 12:11] VITALS: BP 126/66; PULSE 82; TEMP 36.9; O2SAT 97
--- NOTE | 2021-09-13 21:34 | NUR.NOTE ---
Nursing Note: pt called this evening to state that she was not able to get antibiotic filled today as the pharmacy was having some issues. States that she had an antibiotic cream from a previous ailment that she put on feet, but it turned feet bright red. Pt was encouraged to use the antibiotic prescribed and get it filled as soon as she can. Pt was also encouraged to clean cream off feet and if feet are painful or symptoms get worse to return to the ED for re-evaluation.
--- NOTE | 2021-09-26 12:07 | NUR.NOTE ---
Aliya Shaver, Veneer Sawyer/Poem Writer called asking for the patient's PCP because he is at the residence for an untimely. Laure Matos Nursing Note:
== END 2021-09-13 11:55 | disposition home or self-care (01) ==
PROVIDERS: Emergency Provider Student in an Organized Health Care Education/Training Program; PCP Family Medicine
DX: L03.116 Cellulitis of left lower limb (principal); E11.9 Type 2 diabetes mellitus without complications; Z79.4 Long term (current) use of insulin; R60.0 Localized edema
CPT/HCPCS: 36415; 36416; 80053; 82962; 87040; 99284; 73630; 83605; 84443; 85025; 93970

== ENCOUNTER 2021-09-16 14:15 | Outpatient (CLI) | payer MEDICARE, MEDICAID, SELFPAY ==
--- NOTE | 2021-09-16 12:45 | DI.RAD_ITS ---
Exam(s) XR HIP LT AP LAT ONLY EXAM: XR HIP LT AP LAT ONLY INDICATION: S/P PERCUTANEOUS SCREW FIXATION. COMPARISON: CR XR HIP LT AP LAT ONLY from 08/05/2021 TECHNIQUE: 2D digital imaging was performed. FINDINGS: Three partially threaded screws are again noted left femoral neck for fracture fixation. There has b een no change in hardware alignment. Fracture alignment is unchanged. No new abnormalities are seen . DATA REPOSITORY: RADIATION DOSE DELIVERED:
== END 2021-09-16 14:16 | disposition home or self-care (01) ==
LOC: DIORS 14:17
PROVIDERS: PCP Family Medicine; Referring Provider Family Medicine; Visit Provider Physician Assistant Surgical
DX: S72.012D Unspecified intracapsular fracture of left femur, subsequent encounter for closed fracture with routine healing; X58.XXXD Exposure to other specified factors, subsequent encounter
CPT/HCPCS: 73502